=== PATIENT | female | born 1940 | race Caucasian/White ===

== ENCOUNTER 2016-07-07 16:58 | Inpatient (IN) | payer OTHER, MEDICARE ==
[~2016-07-07] VITALS: Ht 160 cm; Wt 85.7 kg
[~2016-07-07 16:58] MED LIST: BNC/40 PO; CALC1CHW PO; EXM/25 PO; HYDR25TA5 PO; MULTCHW PO; SIMV-151 PO; Tylenol PO; [UNRECOGNIZED DRUG - OTHER]
[2016-07-07] MEDS ORDERED: SODIUM CHLORIDE 0.9% 1000ML 1,000 ML IV SCH (17:18)
--- NOTE | 2016-07-07 17:28 | EMERGENCY ROOM VISIT NOTE ---
History Report prepared by Mckinley: Lacey Salguero Under the Supervision of: Dr. Tonio Wilcox D.O. 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 The patient states that last night she noticed that she was experiencing slurred speech. She states that then today she experienced a loss of balance and fell down in the shower. She states she saw her PCP today and he suggested that the patient receive a Ct scan to rule out a possible stroke. She states she has also been experiencing an intermittent headache in her left forehead. The patient denies any SOB, heart palpitations or any history of blood clots, strokes, atrial fibrillation or heart murmur. The patient states that she takes medication daily for cholesterol, hypertension, and cancer medication. 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 A total of 10 systems reviewed and were otherwise negative. Past Medical & Surgical Medical Problems: (1) Carcinoma of breast (2) Slurred speech Family History No pertient family history secondary to age Social History Smoking Status: Never Smoker Alcohol Use: none Drug Use: none Marital Status: Occupation Status: retired Current/Historical Medications Scheduled Calcium Carbonate-Vitamin D (Caltrate 600+D), 1 TAB PO HS Exemestane (Aromasin), 25 MG PO DAILY Hydrochlorothiazide (Hydrochlorothiazide), 25 MG PO QAM Multiple Vitamins W/ Minerals (Centrum Silver), 1 TABLET PO DAILY Olmesartan Medoxomil (Benicar), 40 MG PO QAM Sertraline (Zoloft), 25 MG PO DAILY Simvastatin (Simvastatin), 20 MG PO HS Allergies Coded Allergies: Latex (Verified Allergy, Intermediate, RASH, 07/07/16) No Known Drug Allergy (Unverified Allergy, Mild, none, 07/07/16) Physical Exam Vital Signs Date Time Temp Pulse Resp B/P Pulse Ox O2 Delivery O2 Flow Rate FiO2 07/07/16 19:23 71 18 186/99 96 Room Air 07/07/16 17:26 76 07/07/16 17:18 93 Room Air 07/07/16 17:02 36.8 84 18 156/90 95 Room Air Physical Exam GENERAL: Patient is awake, alert, and in no acute distress. Patient is resting comfortably and showing no signs of anxiety EYES: The conjunctivae are clear. The pupils are round and reactive. EARS, NOSE, MOUTH AND THROAT: The nose is without any evidence of any deformity. Mucous membranes are moist tongue is midline NECK: The neck is nontender and supple. No bruit noted to auscultation. RESPIRATORY: Normal respiratory effort is noted there is no evidence of wheezing rhonchi or rales CARDIOVASCULAR: Regular rate and rhythm noted there no murmurs rubs or gallops normal S1 normal S2 GASTROINTESTINAL: The abdomen is soft. Bowel sounds are present in all quadrants. Abdomen is nontender MUSCULOSKELETAL/EXTREMITIES: There is no evidence of gross deformity full range of motion is noted in the hips and shoulders SKIN: There is no obvious evidence of any rash. There are no petechiae, pallor or cyanosis noted. NEUROLOGIC: Patient is awake alert and oriented x3, speech pressured but understandable, strength symmetric and was able to hold leg above bed for greater than 5 seconds. Special Inspector strength was symmetric. There was a facial droop involving the lower left corner of mouth but forehead was spared. Medical Decision & Procedures ER Provider Diagnostic Interpretation: X-ray results as stated below per interpretation by me and the radiologist. CHEST ONE VIEW PORTABLE CLINICAL HISTORY: Stroke COMPARISON STUDY: 01/29/2013 FINDINGS: There are postsurgical changes of a midline sternotomy. There are surgical clips projected over the right breast axillary region. There is no lobar consolidation. There is stable left basilar atelectasis/scarring. There is mild interstitial thickening finding which may be secondary to a suboptimal inspiration although mild pulmonary vascular congestion could appear similar[ IMPRESSION: 1. AP portable study. Mild interstitial thickening without evidence of focal pulmonary consolidation. Electronically signed by: Matteo Richards M.D. 07/07/2016 5:59 PM Dictated Date/Time: 07/07/2016 5:[address] results as stated below per my review and radiologist interpretation. CT HEAD WITHOUT CONTRAST (CT) CLINICAL HISTORY: Stroke COMPARISON STUDY: No previous studies for comparison. TECHNIQUE: Axial CT of the brain is performed from the vertex to the skull base. IV contrast was not administered for this examination. CT DOSE: 537.48 mGy.cm FINDINGS: No intra or extra-axial mass lesions are visualized. There is no CT evidence of acute cortical infarction. There is no evidence of midline shift. There is no acute hemorrhage. No calvarial fractures are visualized. There are patchy white matter hypodensities likely on a small vessel basis. There is no evidence of pathologic ventricular dilatation. There is no evidence of acute sinusitis IMPRESSION: No acute intracranial findings Electronically signed by: Matteo Richards M.D. 07/07/2016 5:50 PM Dictated Date/Time: 07/07/2016 5:50 PM Laboratory Results 07/07/16 18:02 Red Blood Count 4.49, Mean Corpuscular Volume 92.9, Mean Corpuscular Hemoglobin 31.8, Mean Corpuscular Hemoglobin Concent 34.3, Mean Platelet Volume 10.2, Neutrophils (%) (Auto) 68.5, Lymphocytes (%) (Auto) 20.5, Monocytes (%) (Auto) 8.9, Eosinophils (%) (Auto) 1.6, Basophils (%) (Auto) 0.3, Neutrophils # (Auto) 4.24, Lymphocytes # (Auto) 1.27, Monocytes # (Auto) 0.55, Eosinophils # (Auto) 0.10, Basophils # (Auto) 0.02 07/07/16 18:02 Test 07/07/16 18:02 White Blood Count 6.19 K/uL (4.8-10.8) Red Blood Count 4.49 M/uL (4.2-5.4) Hemoglobin 14.3 g/dL (12.0-16.0) Hematocrit 41.7 % (37-47) Mean Corpuscular Volume 92.9 fL (80-100) Mean Corpuscular Hemoglobin 31.8 pg (25-34) Mean Corpuscular Hemoglobin Concent 34.3 g/dl (32-36) Platelet Count 185 K/uL (130-400) Mean Platelet Volume 10.2 fL (7.4-10.4) Neutrophils (%) (Auto) 68.5 % Lymphocytes (%) (Auto) 20.5 % Monocytes (%) (Auto) 8.9 % Eosinophils (%) (Auto) 1.6 % Basophils (%) (Auto) 0.3 % Neutrophils # (Auto) 4.24 K/uL (1.4-6.5) Lymphocytes # (Auto) 1.27 K/uL (1.2-3.4) Monocytes # (Auto) 0.55 K/uL (0.11-0.59) Eosinophils # (Auto) 0.10 K/uL (0-0.5) Basophils # (Auto) 0.02 K/uL (0-0.2) RDW Standard Deviation 45.4 fL (36.4-46.3) RDW Coefficient of Variation 13.4 % (11.5-14.5) Immature Granulocyte % (Auto) 0.2 % Immature Granulocyte # (Auto) 0.01 K/uL (0.00-0.02) Prothrombin Time 10.7 SECONDS (9.0-12.0) Prothromb Time International Ratio 1.0 (0.9-1.1) Activated Partial Thromboplast Time 26.7 SECONDS (21.0-31.0) Partial Thromboplastin Ratio 1.0 Anion Gap 8.0 mmol/L (3-11) Est Creatinine Clear Calc Drug Dose 53.5 ml/min Estimated GFR () 67.2 Estimated GFR (Non- 57.9 BUN/Creatinine Ratio 17.1 (10-20) Calcium Level 9.6 mg/dl (8.5-10.1) Laboratory results per my review. Medications Administered Medications (Trade) Dose Ordered Sig/Sarika Route Start Time Stop Time Status Last Admin Dose Admin Sodium Chloride (Nss 1000ml) 1,000 ml @ 50 mls/hr Q20H IV 07/07/16 17:18 07/07/16 21:17 DC 07/07/16 18:05 50 MLS/HR Acetaminophen (Tylenol Tab) 650 mg Q4H PRN PO 07/07/16 20:00 08/06/16 19:59 07/07/16 21:54 650 MG ECG Indication: altered mental status Rate (beats per minute): 74 Rhythm: normal sinus Findings: no ectopy, other (No acute ST segment abnormalities.) Comparison ECG Date: no prior available ED Course 1711: The patient was evaluated in room A3. A complete history and physical examination were performed. 1718: Ordered NSS 1,000 ml @ 50 mls/hr IV 1856; I reevaluated the patient and she was resting comfortably without symptoms. 1914: I discussed the case with Dr. Alex CLARK Hospitalist. He agreed to evaluate the patient for further management and care. Medical Decision Differential diagnosis: Etiologies such as metabolic, infection, hypo/hyperglycemia, electrolyte abnormalities, cardiac sources, intracerebral event, toxicologic, neurologic, as well as others were entertained. Nursing notes reviewed. Additional history is obtained from the patient's friend. The patient is a 75-year-old female who presented to emergency department for strokelike symptoms. The patient started noticing difficulty with her speech over the last 24 hours. The patient was also noted on physical exam to have a slight facial droop on the left. The patient states her symptoms have been waxing and waning. The patient's primary care physician instructed her to come to the emergency department for an evaluation. I discussed the patient's laboratory and radiographic studies with her. She was reevaluated multiple times. On final reevaluation her symptoms appear to be resolved. 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 I discussed his case with the on-call [facility] hospitalist group. They've agreed to evaluate the patient in the emergency apartment for further management and disposition. Consults Time Called: 1899 Consulting Physician: Dr. Alex CLARK [facility] Returned Call: 1914 I discussed the case with Dr. Alex CLARK [facility]. He agreed to evaluate the patient for further management and care. Impression Primary Impression: TIA (transient ischemic attack) Scribe Attestation The scribe's documentation has been prepared under my direction and personally reviewed by me in its entirety. I confirm that the note above accurately reflects all work, treatment, procedures, and medical decision making performed by me. Departure Information Dispostion Being Evaluated By Hospitalist Referrals Manolo Toussaint D.O. (PCP)
[2016-07-07] MEDS ORDERED: SERT25TA PO (17:36)
--- NOTE | 2016-07-07 17:52 | DIAGNOSTIC IMAGING REPORT ---
CT HEAD WITHOUT CONTRAST (CT) CLINICAL HISTORY: Stroke COMPARISON STUDY: No previous studies for comparison. TECHNIQUE: Axial CT of the brain is performed from the vertex to the skull base. IV contrast was not administered for this examination. CT DOSE: 537.48 mGy.cm FINDINGS: No intra or extra-axial mass lesions are visualized. There is no CT evidence of acute cortical infarction. There is no evidence of midline shift. There is no acute hemorrhage. No calvarial fractures are visualized. There are patchy white matter hypodensities likely on a small vessel basis. There is no evidence of pathologic ventricular dilatation. There is no evidence of acute sinusitis IMPRESSION: No acute intracranial findings Electronically signed by: Matteo Richards M.D. 07/07/2016 5:50 PM Dictated Date/Time: 07/07/2016 5:50 PM
--- NOTE | 2016-07-07 18:00 | DIAGNOSTIC IMAGING REPORT ---
CHEST ONE VIEW PORTABLE CLINICAL HISTORY: Stroke COMPARISON STUDY: 01/29/2013 FINDINGS: There are postsurgical changes of a midline sternotomy. There are surgical clips projected over the right breast axillary region. There is no lobar consolidation. There is stable left basilar atelectasis/scarring. There is mild interstitial thickening finding which may be secondary to a suboptimal inspiration although mild pulmonary vascular congestion could appear similar[ IMPRESSION: 1. AP portable study. Mild interstitial thickening without evidence of focal pulmonary consolidation. Electronically signed by: Matteo Richards M.D. 07/07/2016 5:59 PM Dictated Date/Time: 07/07/2016 5:58 PM
[2016-07-07 18:08] LABS: BASO % 0.3 %; BASO ABS # 0.02 K/uL (0-0.2); COMPLETE YES; EOS % 1.6 %; HEMATOCRIT 41.7 % (37-47); IG% 0.2 %; LYMPH % 20.5 %; LYMPH ABS # 1.27 K/uL (1.2-3.4); MEAN CELL VOLUME 92.9 fL (80-100); MEAN CORPUSCULAR HEMOGLOBIN 31.8 pg (25-34); MEAN CORPUSCULAR HGB CONC 34.3 g/dl (32-36); MEAN PLATELET VOLUME 10.2 fL (7.4-10.4); MONO % 8.9 %; NEUT % 68.5 %; PLATELET COUNT 185 K/uL (130-400); RED BLOOD COUNT 4.49 M/uL (4.2-5.4); WHITE BLOOD COUNT 6.19 K/uL (4.8-10.8)
[2016-07-07 18:26] LABS: PROTHROMBIN TIME (PATIENT) 10.7 SECONDS (9.0-12.0)
[2016-07-07 18:30] LABS: BLOOD UREA NITROGEN 17 mg/dl (7-18); BUN/CREATININE RATIO 17.1 (10-20); CALCIUM 9.6 mg/dl (8.5-10.1); CARBON DIOXIDE 28 mmol/L (21-32); CHLORIDE 104 mmol/L (98-107); CREATININE 0.97 mg/dl (0.60-1.20); GLUCOSE 101 mg/dl (70-99); POTASSIUM 3.8 mmol/L (3.5-5.1); SODIUM 140 mmol/L (136-145)
[2016-07-07 18:35] LABS: CKMB/CK RATIO 0.8 (0-3.0)
[2016-07-07] MEDS ORDERED: METOPROLOL TARTRATE 1 MG/ML VIAL IV PRN (20:00)
[2016-07-07] MEDS ORDERED: ONDANSETRON INJ 2 MG/ML 2 ML VIAL IV PRN (20:00)
[2016-07-07] MEDS ORDERED: PHARMACIST DISCHARGE MED REC CONSULT PRN (20:00)
[2016-07-07] MEDS ORDERED: OPTIRAY 320 IV PRN (20:00)
[2016-07-07] MEDS ORDERED: NITROGLYCERIN 0.4 MG SL PER TAB CHARGE SL PRN (20:00)
[2016-07-07] MEDS ORDERED: ALUMINUM/MAGNESIUM/SIMETH (MAALOX MAX) 30 ML UDC PO PRN (20:00)
[2016-07-07] MEDS ORDERED: ASPIRIN 81 MG CHEW PO SCH (20:01)
--- NOTE | 2016-07-07 20:37 | DIAGNOSTIC IMAGING REPORT ---
CT ANGIOGRAPHY HEAD COMBO CT DOSE: CLINICAL HISTORY: Stroke TECHNIQUE: Unenhanced images were obtained the brain. CT angiography was then performed in a dynamic helical fashion during intravenous administration of 115 cc of Optiray 320. MIP imaging was performed COMPARISON STUDY: Noncontrast head CT dated 07/07/2016 FINDINGS: On the noncontrast study, no intra or extra-axial mass lesions are visualized. There is no CT evidence of acute cortical infarction. White matter hypodensities are likely small vessel basis. There is no hydrocephalus. CT angiographic images reveal minor atherosclerotic changes within the carotid siphon. There are no major intracranial branch occlusions. There are no lesion suspicious for aneurysm. There are no findings to indicate dural venous sinus thrombosis. There is no vertebral or basilar artery stenosis. IMPRESSION: 1. Mild atherosclerotic changes. No evidence of aneurysm. No evidence of intracranial branch occlusion. Electronically signed by: Matteo Richards M.D. 07/07/2016 8:36 PM Dictated Date/Time: 07/07/2016 8:31 PM
--- NOTE | 2016-07-07 20:42 | DIAGNOSTIC IMAGING REPORT ---
CT NECK ANGIO WITH CONTRAST CLINICAL HISTORY: Stroke COMPARISON STUDY: No previous studies for comparison. TECHNIQUE: CT angiography was performed from the aortic arch to the skull base. MIP imaging was performed. The patient was scanned in a dynamic helical fashion during intravenous administration of 115 cc of Optiray 320. CT DOSE: 1132.93 mGy.cm Technique: CT angiogram of the carotid and vertebral arteries was obtained using intravenous contrast and 3-D reconstruction. NASCET criteria was utilized. Findings: The right carotid revealed no evidence of aneurysm and no evidence of dissection. There are atherosclerotic changes at the level the carotid bulb. There is a small ulcerated plaque involving the posterior wall the proximal right internal carotid artery. There is no evidence of hemodynamic significant stenosis. The left carotid revealed no evidence of hemodynamic significant stenosis. There is no evidence of aneurysm. There is no evidence of dissection. There is no evidence of hemodynamically significant vertebral stenosis. There is no evidence of vertebral dissection. IMPRESSION: 1. Atheromatous changes at the level of the right carotid bulb with a small ulcerated plaque involving the posterior wall the proximal right internal carotid artery. 2. No evidence of hemodynamically significant right or left internal carotid artery stenosis. 3. No evidence of vertebral or basilar artery stenosis. 4. No evidence of dissection Electronically signed by: Matteo Richards M.D. 07/07/2016 8:41 PM Dictated Date/Time: 07/07/2016 8:36 PM
[2016-07-07] MEDS ORDERED: SIMVASTATIN 20 MG TAB PO SCH (21:00)
[2016-07-07] MEDS ORDERED: ATORVASTATIN 40 MG TAB PO SCH (21:00)
[2016-07-07 21:15] VITALS: BP 179/93; PULSE 72; TEMP 36.8; O2SAT 95; Ht 160 cm; Wt 85.7 kg
[2016-07-07] MEDS: HEPARIN SOD 5000 UNIT/0.5 ML CARP SQ SCH (21:48)
[2016-07-07] MEDS: ACETAMINOPHEN 325 MG TAB PO PRN (21:54)
[2016-07-07 22:09] LABS: CKMB/CK RATIO 1.1 (0-3.0)
[2016-07-07 23:04] VITALS: BP 137/78; PULSE 74; TEMP 36.8; O2SAT 96
--- NOTE | 2016-07-07 23:15 | History and Physical ---
History & Physical Date & Time of Service: Jul 07, 2016 at 23:04 Chief Complaint: Slurred Speech, Tia Primary Care Physician: Manolo Toussaint D.O. History of Present Illness Source: patient, family Mrs Zaria Mann is a 75 yo female with previous breast cancer, hyperlipidemia, hypertension, & mild depression, patient of Dr Toussaint, who initially presented to his office with a 3 day history of slurred speech and difficulties with balance. Apparently last night she lost her balance and fell in the shower. She saw Dr Toussaint today who recommended she get a CT scan to evaluate for stroke. She reports her blood pressure in the office today was around 130/80. She reports she has also had a mild headache to the left frontal area as well. Upon seeing her, her slurred speech had resolved, but she has a residual right sided facial droop. She presented with her cousin today and reports generally she functions very well on her own. She reports she is on medication for high cholesterol and high blood pressure. She denies ever being on aspirin or plavix. Past Medical/Surgical History PMHx: - Breast Ca - Hyperlipidemia - Hypertension - Depression PSHx: - Mastectomy - Cardiac surgery for an ASD, done at [facility] (she does not remember what type of surgery it was), completed at age 55 Family History No pertient family history secondary to age Social History Smoking Status: Never Smoker Drug Use: none Marital Status: Occupational Status: retired Immunizations History of Influenza Vaccine: No Influenza Vaccine Date: Mar 21, 2012 History of Tetanus Vaccine?: Unknown History of Pneumococcal: Unknown History of Hepatitis B Vaccine: No Multi-Drug Resistant Organisms History of MDRO: No Allergies Coded Allergies: Latex (Verified Allergy, Intermediate, RASH, 07/07/16) No Known Drug Allergy (Unverified Allergy, Mild, none, 07/07/16) Home Medications Scheduled Calcium Carbonate-Vitamin D (Caltrate 600+D), 1 TAB PO HS Exemestane (Aromasin), 25 MG PO DAILY Hydrochlorothiazide (Hydrochlorothiazide), 25 MG PO QAM Multiple Vitamins W/ Minerals (Centrum Silver), 1 TABLET PO DAILY Olmesartan Medoxomil (Benicar), 40 MG PO QAM Sertraline (Zoloft), 25 MG PO DAILY Simvastatin (Simvastatin), 20 MG PO HS Review of Systems See HPI for pertinent positives & negatives. A total of 10 systems reviewed and were otherwise negative. Physical Exam Vital Signs Date Time Temp Pulse Resp B/P Pulse Ox O2 Delivery O2 Flow Rate FiO2 07/07/16 21:15 36.8 72 18 179/93 95 Room Air 07/07/16 19:23 71 18 186/99 96 Room Air 07/07/16 17:26 76 07/07/16 17:18 93 Room Air 07/07/16 17:02 36.8 84 18 156/90 95 Room Air General Appearance: WD/WN, no apparent distress Head: normocephalic, atraumatic Eyes: normal inspection, PERRL ENT: hearing grossly normal Neck: supple, no JVD Respiratory/Chest: chest non-tender, lungs clear, normal breath sounds, no respiratory distress Cardiovascular: regular rate, rhythm, no murmur, normal peripheral pulses Abdomen/GI: normal bowel sounds, non tender, soft Extremities/Musculoskelatal: normal inspection, + pedal edema Neurologic/Psych: no motor/sensory deficits, alert, normal mood/affect, normal reflexes, oriented x 3, + pertinent finding (mild facial droop to Right side) Skin: no rash Diagnostics Laboratory Results Results Past 24 Hours Test 07/07/16 18:02 07/07/16 21:23 Range/Units White Blood Count 6.19 4.8-10.8 K/uL Red Blood Count 4.49 4.2-5.4 M/uL Hemoglobin 14.3 12.0-16.0 g/dL Hematocrit 41.7 37-47 % Mean Corpuscular Volume 92.9 80-100 fL Mean Corpuscular Hemoglobin 31.8 25-34 pg Mean Corpuscular Hemoglobin Concent 34.3 32-36 g/dl Platelet Count 185 130-400 K/uL Mean Platelet Volume 10.2 7.4-10.4 fL Neutrophils (%) (Auto) 68.5 % Lymphocytes (%) (Auto) 20.5 % Monocytes (%) (Auto) 8.9 % Eosinophils (%) (Auto) 1.6 % Basophils (%) (Auto) 0.3 % Neutrophils # (Auto) 4.24 1.4-6.5 K/uL Lymphocytes # (Auto) 1.27 1.2-3.4 K/uL Monocytes # (Auto) 0.55 0.11-0.59 K/uL Eosinophils # (Auto) 0.10 0-0.5 K/uL Basophils # (Auto) 0.02 0-0.2 K/uL RDW Standard Deviation 45.4 36.4-46.3 fL RDW Coefficient of Variation 13.4 11.5-14.5 % Immature Granulocyte % (Auto) 0.2 % Immature Granulocyte # (Auto) 0.01 0.00-0.02 K/uL Prothrombin Time 10.7 9.0-12.0 SECONDS Prothromb Time International Ratio 1.0 0.9-1.1 Activated Partial Thromboplast Time 26.7 21.0-31.0 SECONDS Partial Thromboplastin Ratio 1.0 Sodium Level 140 136-145 mmol/L Potassium Level 3.8 3.5-5.1 mmol/L Chloride Level 104 98-107 mmol/L Carbon Dioxide Level 28 21-32 mmol/L Anion Gap 8.0 3-11 mmol/L Blood Urea Nitrogen 17 7-18 mg/dl Creatinine 0.97 0.60-1.20 mg/dl Est Creatinine Clear Calc Drug Dose 53.5 ml/min Estimated GFR () 67.2 Estimated GFR (Non- 57.9 BUN/Creatinine Ratio 17.1 10-20 Random Glucose 101 70-99 mg/dl Calcium Level 9.6 8.5-10.1 mg/dl Total Creatine Kinase 141 132 26-192 U/L Creatine Kinase MB 1.1 1.5 0.5-3.6 ng/ml Creatine Kinase MB Ratio 0.8 1.1 0-3.0 Troponin I < 0.015 < 0.015 0-0.045 ng/ml Diagnostic Radiology CHEST ONE VIEW PORTABLE CLINICAL HISTORY: Stroke COMPARISON STUDY: 01/29/2013 FINDINGS: There are postsurgical changes of a midline sternotomy. There are surgical clips projected over the right breast axillary region. There is no lobar consolidation. There is stable left basilar atelectasis/scarring. There is mild interstitial thickening finding which may be secondary to a suboptimal inspiration although mild pulmonary vascular congestion could appear similar[ IMPRESSION: 1. AP portable study. Mild interstitial thickening without evidence of focal pulmonary consolidation. Electronically signed by: Matteo Richards M.D. 07/07/2016 5:59 PM Dictated Date/Time: 07/07/2016 5:[address] results as stated below per my review and radiologist interpretation. CT HEAD WITHOUT CONTRAST (CT) CLINICAL HISTORY: Stroke COMPARISON STUDY: No previous studies for comparison. TECHNIQUE: Axial CT of the brain is performed from the vertex to the skull base. IV contrast was not administered for this examination. CT DOSE: 537.48 mGy.cm FINDINGS: No intra or extra-axial mass lesions are visualized. There is no CT evidence of acute cortical infarction. There is no evidence of midline shift. There is no acute hemorrhage. No calvarial fractures are visualized. There are patchy white matter hypodensities likely on a small vessel basis. There is no evidence of pathologic ventricular dilatation. There is no evidence of acute sinusitis IMPRESSION: No acute intracranial findings Normal EKG Impression Assessment and Plan 75 yo F with risk factors including age, hypertension, and hyperlipidemia who presents with slurred speech and facial weakness, now resolved. Plan: TIA evaluation - CTA of head and neck. - Cardiac monitoring - Will hold off on MRI for now as patient reports she is not allowed to get MRI from the head below due to something placed during her cardiac surgery? - Start aspirin today - Neuro consult Hypertension - Hold hydrochlorothiazide for now - Metoprolol 5mg IV PRN, aiming for SBP 150-170 Hyperlipidemia - Change simvastatin 20mg to atorvastatin 40mg Breast Ca - Continue home Aromasin FULL CODE Level of Care Telemetry Advanced Directives Existing Advance Directive: Yes Existing Living Will: Yes Existing Power of Customs Compliance Analyst: Yes Resuscitation Status FULL RESUSCITATION VTE Prophylaxis VTE Risk Assessment Done? Y/N: Yes Risk Level: Moderate Given or contraindicated: Unfractionated heparin SQ Resident Tracking Resident Involvement: Resident Care Provided Care Provided: Adult [facility] Medicine Assessment and Plan ATTENDING ADDENDUM: ATTENDING ADDENDUM: I have seen and examined this patient, have directed their medical care, have supervised the medical records supervisor, and agree with the H&P as noted above, with the additions below. History of Present Illness: The patient is a 75-year-old female with past medical history of breast cancer, hyperlipidemia, hypertension, depression who presented to the office of her PCP Dr. Toussaint with 3 days of slurred speech and imbalance. Last night she fell in the shower, but denies hitting her head, but does report having a mild left frontal headache. She was advised by her PCP to get a CT of the head. Upon assessment in the emergency department, her slurred speech had resolved but she continued have a mild right facial droop. She is accompanied by her cousin to the emergency department today. Review of Systems: The patient denies chest pain, palpitations, shortness of breath, cough, lower extremity swelling, vision change, hearing change, sore throat, fevers, chills, sweats, weight change, fatigue, nausea, vomiting, abdominal pain, pelvic pain, blood in urine or stool, dysuria, urinary frequency or urgency, memory loss, rash, abnormal bruising or bleeding, arthralgias or myalgias, back or neck pain , night sweats, or allergy symptoms. The review of systems is otherwise negative other than for that already noted above, and at least 10 systems have been reviewed. Physical Examination: The patient is awake, well-developed and adequately nourished, alert and oriented 3, has a mild right facial droop lying in bed and in no acute distress. HEENT--PERRL, EOMI, mucous membranes moist, and oropharynx normal. Neck--supple, no JVD or bruits, thyroid normal, trachea midline, no adenopathy. Heart--normal S1 and S2, no extra beats, no murmurs, rubs or gallops. Lungs--clear bilaterally with good air movement, no respiratory distress, no accessory muscle use. Abdomen--normal bowel sounds and soft, nontender and nondistended, no hernias or masses, no organomegaly. Extremities--no cyanosis, clubbing or edema. There are good distal pulses b/l. Dermatologic--normal skin turgor, normal color, warm and dry, no abnormal lymph nodes, no rash. Neurologic--cranial nerves II through XII grossly intact, motor and sensory examination normal. Rheumatologic--normal range of motion, nontender, muscles and joints. Psychiatric--normal affect. Imaging Studies: CT scan of the head Without Contrast: Shows chronic small vessel disease, with no acute findings. EKG shows normal sinus rhythm at 74, with no acute ST-T changes. Assessment and Plan: TIA versus CVA--the patient will be admitted to the telemetry unit, for serial cardiac enzymes, cardiac rhythm monitoring, and a 2-D echocardiogram with Dopplers. She reports having had some type of invasive heart procedure that does not allow her to have an MRI performed. We'll therefore is CTA of the head and neck, transthoracic echo, and patient may also require a MICH to assess for vegetations. We'll start aspirin chewable 81 mg by mouth daily. Consult neurology. Next Hypertension--mildly permissive hypertension since her symptoms have been somewhat variable. Tonight he'll also slightly blood pressure 150-170, in the morning with echodense normal range. We'll metoprolol 5 mg IV every 4 hours when necessary systolic blood pressure greater than 150. Hyperlipidemia--simvastatin 20 mg been changed to atorvastatin 40 mg. Breast cancer--presently is on Aromasin, which would increase her risk for hypercoagulability. We'll continue for now. Depression--continue sertraline 25 mg by mouth daily.
[2016-07-07 23:59] VITALS: O2SAT 96
[2016-07-08] VITALS (7 sets, daily range): BP systolic 148–176; BP diastolic 62–95; PULSE 64–74; TEMP 36.5–37.1; O2SAT 95–96
[2016-07-08 02:32] LABS: CKMB/CK RATIO 1.4 (0-3.0)
[2016-07-08] MEDS: HEPARIN SOD 5000 UNIT/0.5 ML CARP SQ SCH ×3 (05:55→21:26)
[2016-07-08 06:30] LABS: BASO % 0.6 %; BASO ABS # 0.03 K/uL (0-0.2); COMPLETE YES; EOS % 3.1 %; HEMATOCRIT 39.9 % (37-47); IG% 0.2 %; LYMPH % 24.6 %; LYMPH ABS # 1.27 K/uL (1.2-3.4); MEAN CELL VOLUME 93.9 fL (80-100); MEAN CORPUSCULAR HEMOGLOBIN 31.5 pg (25-34); MEAN CORPUSCULAR HGB CONC 33.6 g/dl (32-36); MEAN PLATELET VOLUME 10.4 fL (7.4-10.4); NEUT % 60.5 %; PLATELET COUNT 171 K/uL (130-400); RED BLOOD COUNT 4.25 M/uL (4.2-5.4); WHITE BLOOD COUNT 5.17 K/uL (4.8-10.8)
[2016-07-08 07:09] LABS: ESTIMATED AVERAGE GLUCOSE 148 mg/dl; HA1C FLAG Normal (Normal)
[2016-07-08 07:10] LABS: BUN/CREATININE RATIO 19.4 (10-20); CALCIUM 8.9 mg/dl (8.5-10.1); CREATININE 0.83 mg/dl (0.60-1.20); POTASSIUM 3.4 mmol/L (3.5-5.1)
[2016-07-08 07:13] LABS: CHOLESTEROL/HDL RATIO 2.9
[2016-07-08] MEDS ORDERED: ASPIRIN 81 MG CHEW PO SCH (09:00)
[2016-07-08] MEDS ORDERED: NURSING VERBAL MED ORDER ONE ×2 (09:30→20:30)
[2016-07-08] MEDS ORDERED: CLOPIDOGREL BISULFATE 300 MG TAB PO ONE (09:45)
--- NOTE | 2016-07-08 09:46 | ECHOCARDIOGRAM REPORT ---
*NOTICE TO RECEIVING CONSTITUTION PARTY AGENCY This information is strictly Confidential and protected under [place] law. [place] law prohibits you from making any further disclosure of this information unless further disclosure is expressly permitted by the written consent of the person to whom it pertains or is authorized by law. A general authorization for the release of medical or other information is not sufficient for this purpose. Hospital accepts no responsibility if the information is made available to any other person, INCLUDING THE PATIENT. Interpretation Summary * Name: HIWOT CHAPPELL Study Date: 07/08/2016 07:28 AM BP: 169/90 mmHg * Patient Location: [facility] HR: 64 * : 1940 (M/d/yyyy) Gender: Female Height: 63 in * Age: 75 yrs Ethnicity: CA Weight: 188 lb * Ordering Physician: Felecia Tang * Referring Physician: Manolo Toussaint D.O. * Performed By: Nicole Patricia RCS * * Reason For Study: Cerebral Ischemia/Embolus * BSA: 1.9 m2 * -- Conclusions -- * The left ventricle is normal in size. * There is normal left ventricular wall thickness. * LVEF 65% * Left ventricular systolic function is normal. * The left ventricular wall motion is normal. * The right ventricle is normal size. * Mildly reduced RV function with TAPSE 1.2 cm * The intraatrial septum is hypermobile. * With a difficult bubble study to interpret there appears to be a right to left shunt with valsalva. Procedure Details * A complete two-dimensional transthoracic echocardiogram was performed (2D, M-mode, Doppler and color flow Doppler). * A saline contrast injection was performed to assess for cardiac shunting. * The injection was performed through an intravenous line in the left arm. * The attending nurse who injected the saline contrast was Renata Titus RN. * A total of 30 cc of agitated saline was given. Left Ventricle * The left ventricle is normal in size. * There is normal left ventricular wall thickness. * LVEF 65% * Left ventricular systolic function is normal. * The left ventricular wall motion is normal. Right Ventricle * The right ventricle is normal size. * Mildly reduced RV function with TAPSE 1.2 cm Atria * The left atrial size is normal. * Right atrial size is normal. * The intraatrial septum is hypermobile. With a difficult bubble study to interpret there appears to be a right to left shunt with valsalva. Mitral Valve * The mitral valve leaflets appear normal. There is no evidence of stenosis, fluttering, or prolapse. * There is trace mitral regurgitation. Tricuspid Valve * The tricuspid valve is not well visualized, but is grossly normal. * There is trace tricuspid regurgitation. Aortic Valve * The aortic valve is trileaflet. * No aortic regurgitation is present. Pulmonic Valve * The pulmonic valve is not well seen, but is grossly normal. Great Vessels * The aortic root is normal size. Pericardium/Pleural * There is no pericardial effusion. Great Vessels * Normal inferior vena cava size and collapsability with sniff indicates a normal right atrial pressure of 3 mmHg Left Ventricular Diastolic Function * Grade I diastolic dysfunction, (abnormal relaxation pattern). MMode 2D Measurements and Calculations IVSd 0.97 cm IVSs 1.4 cm LVIDd 4.6 cm LVIDs 2.9 cm LVPWd 1.0 cm LVPWs 1.4 cm IVS/LVPW 0.97 FS 36.5 % EDV(Teich) 96.2 ml ESV(Teich) 32.3 ml EF(Teich) 66.4 % EDV(cubed) 95.8 ml ESV(cubed) 24.5 ml EF(cubed) 74.4 % % IVS thick 41.1 % % LVPW thick 35.2 % LV mass(C)d 155.7 grams LV mass(C)dI 82.7 grams/m\S\2 LV mass(C)s 129.8 grams LV mass(C)sI 68.9 grams/m\S\2 CO(Teich) 4.0 l/min CI(Teich) 2.1 l/min/m\S\2 SV(Teich) 63.8 ml SI(Teich) 33.9 ml/m\S\2 CO(cubed) 4.5 l/min CI(cubed) 2.4 l/min/m\S\2 SV(cubed) 71.3 ml SI(cubed) 37.9 ml/m\S\2 Ao root diam 3.6 cm Ao root area 10.1 cm\S\2 ACS 1.7 cm LA dimension 3.7 cm LA/Ao 1.0 LVAd ap4 27.2 cm\S\2 LVLd ap4 8.0 cm EDV(MOD-sp4) 77.0 ml LVAs ap4 14.9 cm\S\2 LVLs ap4 7.0 cm ESV(MOD-sp4) 28.0 ml EF(MOD-sp4) 63.6 % LVAd ap2 25.4 cm\S\2 LVLd ap2 7.8 cm EDV(MOD-sp2) 72.0 ml LVAs ap2 12.5 cm\S\2 LVLs ap2 6.0 cm ESV(MOD-sp2) 23.0 ml EF(MOD-sp2) 68.1 % CO(MOD-sp4) 3.1 l/min CI(MOD-sp4) 1.6 l/min/m\S\2 SV(MOD-sp4) 49.0 ml SI(MOD-sp4) 26.0 ml/m\S\2 CO(MOD-sp2) 3.1 l/min CI(MOD-sp2) 1.6 l/min/m\S\2 SV(MOD-sp2) 49.0 ml SI(MOD-sp2) 26.0 ml/m\S\2 Doppler Measurements and Calculations MV E max eula 59.8 cm/sec MV A max eula 85.2 cm/sec MV E/A 0.70 MV P1/2t max eula 60.8 cm/sec MV P1/2t 92.4 msec MVA(P1/2t) 2.4 cm\S\2 MV dec slope 192.7 cm/sec\S\2 MV dec time 0.30 sec Ao V2 max 96.5 cm/sec Ao max PG 3.7 mmHg Ao max PG (full) 0.32 mmHg LV V1 max PG 3.4 mmHg LV V1 max 92.2 cm/sec PA V2 max 95.0 cm/sec PA max PG 3.7 mmHg
--- NOTE | 2016-07-08 09:48 | Neurology Consultation ---
Neurology Consultation Date of Consultation: Jul 08, 2016. Attending Physician: Giuseppe Muller M.D. Primary Care Physician: Manolo Toussaint D.O. Reason for Consultation: Patient is a 75-year-old, who was asked to see the request of June and Renzo, for neurologic consultation regarding stroke. History of Present Illness Source: patient, family, caregiver, hospital records The patient tells me that she has not had any history of stroke. She has had hypertension for about 15 years and in 2010 was diagnosed with right breast cancer post partial mastectomy, radiation, and hormonal therapy. As far as is known, she has not had any recurrence but is followed closely by oncology. She has a history of dyslipidemia on simvastatin and some very mild situational depression recently put on low-dose sertraline. This helps. The patient tells me that at age 55, she had a heart mesh procedure for atrial septal defect at the [facility]. She is currently followed by Dr. Jimenez. She believes that she has been told that she cannot have an MRI. In the evening of July 06 around 8 PM she had the onset of some slurred speech. She felt that her balance was off and she felt tired. She did not have any new weakness or numbness in her arms or legs and had no new pain. She went to bed and woke the next morning still with balance issues and slurred speech. At 0600 hours on July 07 she was sitting on the toilet, stood up, felt off balance and fell. She bruised her right side/rib cage considerably. She noted some left forehead headache intermittently but didn't come to the emergency room until 1702 hours on July 07. Blood pressure was 156/90, pulse 84, respiratory rate 18, temperature 36.8, and O2 saturation 95%. In the emergency room, there was a left facial droop noted at her speech was "pressured". She was admitted and the admitting clinician felt that there was a right facial droop. The patient's hvmalsed-hi-lds, who is an RN, and is present in the room, tells me that late last evening she did not have any weakness or clumsiness in the right upper extremity and did not notice much of a facial droop. She felt that there was a left-sided facial droop yesterday. This morning, the patient feels that her speech is back to baseline and she has no pain or headache. She feels tired in general but does not feel any specific weakness or numbness. CT scan of the head was unremarkable. Chest x-ray was unremarkable. CT angiography of the head and neck was unremarkable with no significant vessel stenosis. CBC and chem profile were unremarkable. Lipid profile was quite good. Past Medical/Surgical History Medical Problems: (1) TIA (transient ischemic attack) Status: Acute Hypertension Dyslipidemia Mild depression controlled on low-dose sertraline Right breast cancer post surgery, RT, on hormonal therapy Chronic low back pain History of mesh placed for an atrial septal defect 20 years ago. Post tonsillectomy Family History Mother age 72 with heart disease and pulmonary symptoms Father age 77 with complications stemming from a stroke Social History Apparently the patient does not drink alcohol and never smoked cigarettes. 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 Smoking Status: Never smoker Smokeless Tobacco Use: No Alcohol Use: none Drug Use: none Marital Status: Housing Status: lives alone Occupation Status: retired Allergies Coded Allergies: Latex (Verified Allergy, Intermediate, RASH, 07/07/16) No Known Drug Allergy (Unverified Allergy, Mild, none, 07/07/16) Current Inpatient Medications Current Inpatient Medications Medications (Trade) Dose Ordered Sig/Sarika Route Start Time Stop Time Status Last Admin Dose Admin Ioversol (Optiray 320) 100 ml UD PRN IV 07/07/16 20:00 07/11/16 19:59 Aspirin (Ecotrin Tab) 81 mg QAM PO 07/08/16 09:00 08/07/16 08:59 Miscellaneous Information (Pharmacist Discharge Med Rec Consult) 1 ea UD PRN N/A 07/07/16 20:00 08/06/16 19:59 Heparin Sodium (Porcine) (Heparin Sq 5000 Unit/0.5ml) 5,000 unit Q8 SQ 07/07/16 22:00 08/06/16 21:59 07/08/16 05:55 5,000 UNIT Acetaminophen (Tylenol Tab) 650 mg Q4H PRN PO 07/07/16 20:00 08/06/16 19:59 07/07/16 21:54 650 MG Al Hydrox/Mg Hydrox/Simethicone (Maalox Max Susp) 15 ml Q4H PRN PO 07/07/16 20:00 08/06/16 19:59 Ondansetron HCl (Zofran Inj) 4 mg Q6H PRN IV 07/07/16 20:00 08/06/16 19:59 Nitroglycerin (Nitrostat Tab) 0.4 mg UD PRN SL 07/07/16 20:00 08/06/16 19:59 Metoprolol Tartrate (Lopressor Iv) 5 mg Q4H PRN IV 07/07/16 20:00 08/06/16 19:59 Sertraline HCl (Zoloft Tab) 25 mg DAILY PO 07/08/16 09:00 08/07/16 08:59 Miscellaneous Information (Order Awaiting Action) 1 ea QS N/A 07/08/16 00:00 08/07/16 00:00 Atorvastatin Calcium (Lipitor Tab) 40 mg HS PO 07/07/16 21:00 08/06/16 20:59 07/07/16 21:45 40 MG Clopidogrel Bisulfate (plAVix TAB) 300 mg TODAY@0945 ONCE PO 07/08/16 09:45 07/08/16 09:46 Clopidogrel Bisulfate (plAVix TAB) 75 mg QAM PO 07/09/16 09:00 08/08/16 08:59 Review of Systems Constitutional: + fatigue, No weakness Eyes: No diplopia, No worsening of vision ENT: No hearing loss, No tinnitus Respiratory: No cough, No shortness of breath Cardiovascular: No chest pain, No palpitations Abdomen: No nausea, No pain Musculoskeletal: No joint pain, No muscle pain Genitourinary - Female: No dysuria, No urinary incontinence Neurologic: + balance problems, No memory loss, No numbness/tingling, No vertigo, No weakness Psychiatric: + depression symptoms, No anxiety Endocrine: + fatigue Hematologic / Lymphatic: No abnormal bleeding/bruising Integumentary: No rash Allergic / Immunologic: No hives Physical Exam Vital Signs (Past 24 Hrs): Date Time Temp Pulse Resp B/P Pulse Ox O2 Delivery O2 Flow Rate FiO2 07/08/16 07:51 36.7 65 18 154/62 96 07/08/16 04:00 96 Room Air 07/08/16 03:30 36.5 64 18 169/90 96 Room Air 07/07/16 23:59 96 Room Air 07/07/16 23:04 36.8 74 18 137/78 96 Room Air 07/07/16 21:15 36.8 72 18 179/93 95 Room Air 07/07/16 19:23 71 18 186/99 96 Room Air 07/07/16 17:26 76 07/07/16 17:18 93 Room Air 07/07/16 17:02 36.8 84 18 156/90 95 Room Air The patient is right-handed. The patient is awake and alert. Speech is normal without aphasia or dysarthria. Mentation and thought processes are intact with orientation and normal fund of knowledge. Mood and affect are normal and appropriate. Appearance and grooming are normal. The discs are sharp with positive venous pulsations. There are no exudates, hemorrhages, or blood vessel changes seen. Pupils are 4mm bilaterally and reactive to light. Extraocular eye muscles are intact without nystagmus. Visual acuity and visual read seem normal grossly to confrontation. There are no deficits to sensation of the face bilaterally. Corneal reflexes are positive bilaterally. There is a mild but distinct right facial droop present. This moves fairly well with voluntary smile. There is no facial droop on the left. . Hearing seems intact grossly to voice and finger rub. Palate moves well without asymmetry. There is normal sternocleidomastoid and trapezius strength bilaterally. Tongue is midline with good strength bilaterally. Neck is with full range of motion without discomfort. There are no cervical bruits. There are no cranial or ocular bruits. Heart is without murmur. Cervical, thoracic, and lumbar spine are nontender to palpation. Gait is slow and cautious but narrow based. Her turns are unsteady. Stance is reasonable eyes open. With outstretched arms there is a mild drift on the right. There are no resting , postural, or action tremors. There is no ataxia with [id number] testing. There is mild clumsiness and weakness in the right hand compared to the left which seems normal. There are no abnormal involuntary movements noted. Motor strength is 5/5 diffusely in the arms bilaterally including deltoids, biceps, brachioradialis, wrist flexors and extensors. Tab Machine Operator strength seems mildly weak at 4/5 on the right compared to the left, which is 5/5. Motor strength is 5/5 diffusely in the legs bilaterally including hip flexors, quadriceps, hamstring, gastrocnemius, tibialis anterior, tibialis posterior, and peroneii muscles bilaterally. Toe extensors are normal and there is good bulk in the extensor digitorum brevis muscle bilaterally. The limbs have good tone without rigidity or spasticity, and there is no atrophy noted. Muscle bulk is normal, there is no tenderness, no myotonia noted to percussion, and no fasciculations seen. Sensory examination is intact to pin and touch throughout all four limbs. Reflexes are 1/4 in the biceps, triceps, brachioradialis, quadriceps, and Achilles tendons bilaterally. Toes are downgoing with plantar stimulation bilaterally. Peripheral pulses are present and of normal quality distally in all four limbs. There is no peripheral edema noted. Laboratory Results Past 24 Hours: 07/08/16 05:46 Red Blood Count 4.25, Mean Corpuscular Volume 93.9, Mean Corpuscular Hemoglobin 31.5, Mean Corpuscular Hemoglobin Concent 33.6, Mean Platelet Volume 10.4, Neutrophils (%) (Auto) 60.5, Lymphocytes (%) (Auto) 24.6, Monocytes (%) (Auto) 11.0, Eosinophils (%) (Auto) 3.1, Basophils (%) (Auto) 0.6, Neutrophils # (Auto ) 3.13, Lymphocytes # (Auto) 1.27, Monocytes # (Auto) 0.57, Eosinophils # (Auto ) 0.16, Basophils # (Auto) 0.03 07/08/16 05:46 Test 07/07/16 18:02 07/07/16 21:23 07/08/16 01:56 07/08/16 05:46 Prothrombin Time 10.7 SECONDS (9.0-12.0) Prothromb Time International Ratio 1.0 (0.9-1.1) Activated Partial Thromboplast Time 26.7 SECONDS (21.0-31.0) Partial Thromboplastin Ratio 1.0 Estimated Average Glucose 148 mg/dl Hemoglobin A1c 6.8 % (4.5-5.6) Total Creatine Kinase 115 U/L (26-192) Creatine Kinase MB 1.6 ng/ml (0.5-3.6) Creatine Kinase MB Ratio 1.4 (0-3.0) Troponin I < 0.015 ng/ml (0-0.045) White Blood Count 5.17 K/uL (4.8-10.8) Red Blood Count 4.25 M/uL (4.2-5.4) Hemoglobin 13.4 g/dL (12.0-16.0) Hematocrit 39.9 % (37-47) Mean Corpuscular Volume 93.9 fL (80-100) Mean Corpuscular Hemoglobin 31.5 pg (25-34) Mean Corpuscular Hemoglobin Concent 33.6 g/dl (32-36) Platelet Count 171 K/uL (130-400) Mean Platelet Volume 10.4 fL (7.4-10.4) Neutrophils (%) (Auto) 60.5 % Lymphocytes (%) (Auto) 24.6 % Monocytes (%) (Auto) 11.0 % Eosinophils (%) (Auto) 3.1 % Basophils (%) (Auto) 0.6 % Neutrophils # (Auto) 3.13 K/uL (1.4-6.5) Lymphocytes # (Auto) 1.27 K/uL (1.2-3.4) Monocytes # (Auto) 0.57 K/uL (0.11-0.59) Eosinophils # (Auto) 0.16 K/uL (0-0.5) Basophils # (Auto) 0.03 K/uL (0-0.2) RDW Standard Deviation 46.8 fL (36.4-46.3) RDW Coefficient of Variation 13.7 % (11.5-14.5) Immature Granulocyte % (Auto) 0.2 % Immature Granulocyte # (Auto) 0.01 K/uL (0.00-0.02) Anion Gap 11.0 mmol/L (3-11) Est Creatinine Clear Calc Drug Dose 63.2 ml/min Estimated GFR () 81.1 Estimated GFR (Non- 70.0 BUN/Creatinine Ratio 19.4 (10-20) Calcium Level 8.9 mg/dl (8.5-10.1) Triglycerides Level 128 mg/dl (0-150) Cholesterol Level 158 mg/dl (0-200) HDL Cholesterol 54 mg/dl LDL Cholesterol, Calculated 78 mg/dl VLDL Cholesterol, Calculated 26 mg/dl Cholesterol/HDL Ratio 2.9 Test 07/08/16 06:30 Bedside Glucose 114 mg/dl (70-90) Imaging CT HEAD WITHOUT CONTRAST (CT) CLINICAL HISTORY: Stroke COMPARISON STUDY: No previous studies for comparison. TECHNIQUE: Axial CT of the brain is performed from the vertex to the skull base. IV contrast was not administered for this examination. CT DOSE: 537.48 mGy.cm FINDINGS: No intra or extra-axial mass lesions are visualized. There is no CT evidence of acute cortical infarction. There is no evidence of midline shift. There is no acute hemorrhage. No calvarial fractures are visualized. There are patchy white matter hypodensities likely on a small vessel basis. There is no evidence of pathologic ventricular dilatation. There is no evidence of acute sinusitis IMPRESSION: No acute intracranial findings Electronically signed by: Matteo Richards M.D. 07/07/2016 5:[address] NECK ANGIO WITH CONTRAST CLINICAL HISTORY: Stroke COMPARISON STUDY: No previous studies for comparison. TECHNIQUE: CT angiography was performed from the aortic arch to the skull base. MIP imaging was performed. The patient was scanned in a dynamic helical fashion during intravenous administration of 115 cc of Optiray 320. CT DOSE: 1132.93 mGy.cm Technique: CT angiogram of the carotid and vertebral arteries was obtained using intravenous contrast and 3-D reconstruction. NASCET criteria was utilized. Findings: The right carotid revealed no evidence of aneurysm and no evidence of dissection. There are atherosclerotic changes at the level the carotid bulb. There is a small ulcerated plaque involving the posterior wall the proximal right internal carotid artery. There is no evidence of hemodynamic significant stenosis. The left carotid revealed no evidence of hemodynamic significant stenosis. There is no evidence of aneurysm. There is no evidence of dissection. There is no evidence of hemodynamically significant vertebral stenosis. There is no evidence of vertebral dissection. IMPRESSION: 1. Atheromatous changes at the level of the right carotid bulb with a small ulcerated plaque involving the posterior wall the proximal right internal carotid artery. 2. No evidence of hemodynamically significant right or left internal carotid artery stenosis. 3. No evidence of vertebral or basilar artery stenosis. 4. No evidence of dissection Electronically signed by: Matteo Richards M.D. 07/07/2016 8:[address] ANGIOGRAPHY HEAD COMBO CT DOSE: CLINICAL HISTORY: Stroke TECHNIQUE: Unenhanced images were obtained the brain. CT angiography was then performed in a dynamic helical fashion during intravenous administration of 115 cc of Optiray 320. MIP imaging was performed COMPARISON STUDY: Noncontrast head CT dated 07/07/2016 FINDINGS: On the noncontrast study, no intra or extra-axial mass lesions are visualized. There is no CT evidence of acute cortical infarction. White matter hypodensities are likely small vessel basis. There is no hydrocephalus. CT angiographic images reveal minor atherosclerotic changes within the carotid siphon. There are no major intracranial branch occlusions. There are no lesion suspicious for aneurysm. There are no findings to indicate dural venous sinus thrombosis. There is no vertebral or basilar artery stenosis. IMPRESSION: 1. Mild atherosclerotic changes. No evidence of aneurysm. No evidence of intracranial branch occlusion. Electronically signed by: Matteo Richards M.D. 07/07/2016 8:36 PM Dictated Date/Time: 07/07/2016 8:31 PM Impression 1. Suspect acute left hemispheric stroke, likely small vessel ischemic disease secondary to her history of hypertension. I'm very concerned that this is "stuttering" and she was not on antiplatelet medication prior to coming into the hospital. These types of strokes can have a stuttering course and required a little more aggressive treatment. Currently she has a mild right-sided facial droop and mild weakness and clumsiness/drift in the right upper extremity. NIH stroke scale equals 2 2. Hypertension not adequately controlled on admission but improved this morning. 3. History of dyslipidemia on simvastatin with an excellent fasting total cholesterol level. 4. History of breast cancer post surgery and radiation, now on hormonal therapy 5. History of heart mesh for atrial septal defect 20 years ago. The concern is whether or not she can have an MRI Plan 1. Check with her stone circular sawyer regarding the mesh to see if she is MRI safe. If so she needs an MRI of the brain to look for acute stroke. If we cannot get an MRI of the brain we could repeat CT scan of the head today or tomorrow. 2. Plavix loading dose of 300 mg was ordered. 3. Continue then with 81 mg aspirin tablet daily and 75 mg Plavix daily for now. 4. PT and OT consults. Her dysarthria improved and I'm not certain she needs speech therapy currently for this. 5. Treat hypertension as you're doing, keeping mean arterial pressure around 100 I discussed this case with Drs. Don and Hussain Overall, I spent 90 minutes in direct patient care this morning
[2016-07-08] MEDS: ASPIRIN 81 MG ECTAB PO SCH (10:28)
[2016-07-08] MEDS: SERTRALINE HCL 50 MG TAB PO SCH (10:29)
[2016-07-08 10:34] LABS: CKMB/CK RATIO 1.2 (0-3.0)
[2016-07-08] MEDS ORDERED: LABETALOL HCL IV 5 MG/ML 20ML IV STA (18:20)
--- NOTE | 2016-07-08 18:29 | Progress Note ---
Progress Note full note to follow w dr thompson's input as well -seen in f/u this afternoon - ongoing R sided facial droop and slurred speech, some clumsiness w hand. notes no choking no coughing. sx ongoing w waxing and waning quality - none of her current symptoms are new in their area of distribution, and none are as severe as her worst was in terms of severity of deficit. extensive d/w pt and granddtr in regards to working dx (lacunar infarcts from small vessel disease) vs ddx (embolic from atrial shunting - seems less likely except for having had L sided sx last night, R sided today) - d/w cardiology - seems not very likely to have had CVA from what is seen on echo , but if in doubt MICH would definitely be more definitive. ---CVA - likely small vessel - antiplatelets as per neurology; BP control (goal right now MAP ~100 - added labetalol prn due to rising pressure through the day) ; still unclear if she can or can't have MRI - and she notes that unless it's definitively clear that she can, she would not want done. for now plan will be repeat CT in AM. if appearing embolic, then will have to proceed w MICH and/or anticoagulation. if not, then continue to treat as small vessel disease. due to lipids not being elevated, and some literature suggesting increased risk of ICH with marked lipid suppression in older individuals - will reduce lipitor to 20mg.
[2016-07-08] MEDS ORDERED: LABETALOL HCL IV 5 MG/ML 20ML IV PRN (18:30)
[2016-07-08] MEDS ORDERED: POTASSIUM CHLORIDE 20 MEQ TABCR PO ONE (20:45)
--- NOTE | 2016-07-08 21:03 | Family Medicine Progress Note ---
Progress Note Date of Service Jul 08, 2016. Subjective Pt evaluation today including: conversation w/ patient, conversation w/ family , physical exam, chart review, lab review Patient sitting up in chair comfortably. She She denies onset of new symptoms, although her daughter in law says lsat night she had left sided facial droop, which seems to have resolved over night, but now she has mild right sided facial droop. She also believe that the slurred speech has largely resolved. Patient says she does not really see a significant difference in herself from baseline. She denies one side paralysis or weakness of any of her limbs, she is not having difficulty speaking or swallowing or word finding. No current pain symptoms. Denies lightheadedness/dizziness, no numbness or tingling in her extremities. 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 Longstanding urinary incontinence, Bowels ok. No previous history of similar symptoms Cardiac history significant for HTN and cardiac surgery requiring mesh insertion Constitutional: No chills, No fever, No weakness Respiratory: No cough, No shortness of breath, No wheezing Cardiovascular: No chest pain, No edema, No palpitations Abdomen: No constipation, No diarrhea, No nausea, No pain, No vomiting Female : No dysuria Objective Vital Signs Date Time Temp Pulse Resp B/P Pulse Ox O2 Delivery O2 Flow Rate FiO2 07/08/16 19:58 36.9 74 20 168/87 96 Room Air 07/08/16 15:29 37.1 66 16 167/95 95 Room Air 07/08/16 15:00 Room Air 07/08/16 12:00 Room Air 07/08/16 11:58 36.9 74 20 148/63 96 07/08/16 08:20 Room Air 07/08/16 07:51 36.7 65 18 154/62 96 07/08/16 04:00 96 Room Air 07/08/16 03:30 36.5 64 18 169/90 96 Room Air 07/07/16 23:59 96 Room Air 07/07/16 23:04 36.8 74 18 137/78 96 Room Air 07/07/16 21:15 36.8 72 18 179/93 95 Room Air Physical Exam General Appearance: WD/WN, no apparent distress Respiratory/Chest: chest non-tender, lungs clear, normal breath sounds, no respiratory distress Cardiovascular: regular rate, rhythm, no edema, no murmur Abdomen: normal bowel sounds, non tender, soft Extremities: no pedal edema, no calf tenderness Neurologic/Psychiatric: alert, normal mood/affect, oriented x 3, + facial droop (right sided), + 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) Skin: normal color, warm/dry, no rash Laboratory Results Results Past 24 Hours Test 07/07/16 21:23 07/08/16 01:56 07/08/16 05:46 07/08/16 06:30 Range/Units Estimated Average Glucose 148 mg/dl Hemoglobin A1c 6.8 4.5-5.6 % Total Creatine Kinase 132 115 26-192 U/L Creatine Kinase MB 1.5 1.6 0.5-3.6 ng/ml Creatine Kinase MB Ratio 1.1 1.4 0-3.0 Troponin I < 0.015 < 0.015 0-0.045 ng/ml White Blood Count 5.17 4.8-10.8 K/uL Red Blood Count 4.25 4.2-5.4 M/uL Hemoglobin 13.4 12.0-16.0 g/dL Hematocrit 39.9 37-47 % Mean Corpuscular Volume 93.9 80-100 fL Mean Corpuscular Hemoglobin 31.5 25-34 pg Mean Corpuscular Hemoglobin Concent 33.6 32-36 g/dl Platelet Count 171 130-400 K/uL Mean Platelet Volume 10.4 7.4-10.4 fL Neutrophils (%) (Auto) 60.5 % Lymphocytes (%) (Auto) 24.6 % Monocytes (%) (Auto) 11.0 % Eosinophils (%) (Auto) 3.1 % Basophils (%) (Auto) 0.6 % Neutrophils # (Auto) 3.13 1.4-6.5 K/uL Lymphocytes # (Auto) 1.27 1.2-3.4 K/uL Monocytes # (Auto) 0.57 0.11-0.59 K/uL Eosinophils # (Auto) 0.16 0-0.5 K/uL Basophils # (Auto) 0.03 0-0.2 K/uL RDW Standard Deviation 46.8 36.4-46.3 fL RDW Coefficient of Variation 13.7 11.5-14.5 % Immature Granulocyte % (Auto) 0.2 % Immature Granulocyte # (Auto) 0.01 0.00-0.02 K/uL Sodium Level 141 136-145 mmol/L Potassium Level 3.4 3.5-5.1 mmol/L Chloride Level 105 98-107 mmol/L Carbon Dioxide Level 25 21-32 mmol/L Anion Gap 11.0 3-11 mmol/L Blood Urea Nitrogen 16 7-18 mg/dl Creatinine 0.83 0.60-1.20 mg/dl Est Creatinine Clear Calc Drug Dose 63.2 ml/min Estimated GFR () 81.1 Estimated GFR (Non- 70.0 BUN/Creatinine Ratio 19.4 10-20 Random Glucose 108 70-99 mg/dl Calcium Level 8.9 8.5-10.1 mg/dl Triglycerides Level 128 0-150 mg/dl Cholesterol Level 158 0-200 mg/dl HDL Cholesterol 54 mg/dl LDL Cholesterol, Calculated 78 mg/dl VLDL Cholesterol, Calculated 26 mg/dl Cholesterol/HDL Ratio 2.9 Bedside Glucose 114 70-90 mg/dl Test 07/08/16 09:56 07/08/16 20:29 Range/Units Total Creatine Kinase 113 26-192 U/L Creatine Kinase MB 1.3 0.5-3.6 ng/ml Creatine Kinase MB Ratio 1.2 0-3.0 Troponin I < 0.015 0-0.045 ng/ml Assessment and Plan 75 year old female with previous breast cancer, hyperlipidemia, hypertension, & mild depression referred by PCP for 3 day history of slurred speech, facial droop and difficulties with balance with fall thereafter. CVA - CT head without contrast:No acute intracranial findings - likely small vessel related - Neurology consulted. Appreciative of Dr. Baker's recommendations - Plavix loading dose of 300mg, then continue then with 81 mg aspirin tablet daily and 75 mg Plavix daily, as per neurology - Brain MRI recommended, however patient patient believes she was told she was not allowed to have MRI. Discussion with her PCP, Dr. Toussaint and her design maker, Dr Post was unable to determine any cause of contraindication based on past history and surgical post op notes, however, patient says that unless it's definitively clear that she can, she would not want one done - Repeat CT in the morning. If appearing embolic, then follow up with [facility] and/ or anticoagulation Weakness - PT and OT consults. Slurred speech - Dysarthria improved - Does not currently require speech therapy for this. HTN - Aim to keeping mean arterial pressure around 100, as per neurology - Hold HCTZ for now - IV labetalol PRN HLD - Patient not a suitable candidate for high dose statin given some literature suggesting increased risk of ICH with marked lipid suppression in older individuals with normal lipid profile - Reduce atorvastatin from 40mg to 20mg Breast Ca - Continue home Aromasin Dispo - Code status: full code - Telemetry Resident Physician Supervision Note: I interviewed and examined the patient. Discussed with Dr. Nixon and agree with findings and plan as documented in the note. Any exceptions or clarifications are listed here: None Documented By: Brandt Don see blank progress note as well. stuttering sx but current range overall improved. vitals noted, BP elevated - rechecked myself and ~190/90 range. R facial droop sl R arm clumsiness CVA - antiplatelets, statin (reduced to 20mg atorva due to lower-end lipids and data suggesting risk of ICH in older individuals with "too suppressed" lipids), BP management, A1c pending HTN - labetalol prn MAP > 110 (goal to keep around 100, but also want to avoid iatrogenic hypotension) DVT proph - heparin SQ Continued [facility] stay due to: ambulation difficulties
[2016-07-08] MEDS: ATORVASTATIN 20 MG TAB PO SCH (21:24)
[2016-07-08] MEDS: ACETAMINOPHEN 325 MG TAB PO PRN (21:25)
[2016-07-09] VITALS (9 sets, daily range): BP systolic 153–198; BP diastolic 71–106; PULSE 60–71; TEMP 36.6–36.9; O2SAT 93–98
[2016-07-09] MEDS: HEPARIN SOD 5000 UNIT/0.5 ML CARP SQ SCH ×3 (06:11→21:37)
[2016-07-09 06:17] LABS: BASO % 0.6 %; BASO ABS # 0.03 K/uL (0-0.2); COMPLETE YES; EOS % 2.5 %; HEMATOCRIT 39.3 % (37-47); IG% 0.2 %; LYMPH % 26.3 %; LYMPH ABS # 1.35 K/uL (1.2-3.4); MEAN CELL VOLUME 93.8 fL (80-100); MEAN CORPUSCULAR HEMOGLOBIN 31.7 pg (25-34); MEAN CORPUSCULAR HGB CONC 33.8 g/dl (32-36); MEAN PLATELET VOLUME 10.3 fL (7.4-10.4); MONO % 7.2 %; NEUT % 63.2 %; PLATELET COUNT 159 K/uL (130-400); RED BLOOD COUNT 4.19 M/uL (4.2-5.4); WHITE BLOOD COUNT 5.13 K/uL (4.8-10.8)
--- NOTE | 2016-07-09 06:41 | Neurology Progress Notes ---
Neurology Progress Note Date of Service Jul 09, 2016. Subjective The patient feels fairly good, with no new pain, headache, or weakness. She says she slept well. Nursing reports no new events. MRI of the brain apparently cannot be done because of previous cardiac procedure. Echocardiogram was unremarkable except for a possible right to left shunt with Valsalva maneuver Objective Date Time Temp Pulse Resp B/P Pulse Ox O2 Delivery O2 Flow Rate FiO2 07/09/16 04:06 36.6 62 18 166/71 96 Room Air 07/09/16 04:02 Room Air 07/09/16 02:40 64 176/94 07/09/16 02:35 64 185/92 93 07/09/16 02:18 70 198/106 93 07/09/16 00:02 Room Air 07/08/16 23:48 69 178/85 07/08/16 23:46 36.9 65 18 176/86 96 Room Air 07/08/16 20:04 Room Air 07/08/16 19:58 36.9 74 20 168/87 96 Room Air 07/08/16 15:29 37.1 66 16 167/95 95 Room Air 07/08/16 15:00 Room Air 07/08/16 12:00 Room Air 07/08/16 11:58 36.9 74 20 148/63 96 07/08/16 08:20 Room Air 07/08/16 07:51 36.7 65 18 154/62 96 Last 24 Hours Test 07/08/16 09:56 07/08/16 20:54 07/09/16 05:34 Total Creatine Kinase 113 U/L Creatine Kinase MB 1.3 ng/ml Creatine Kinase MB Ratio 1.2 Troponin I < 0.015 ng/ml Magnesium Level 2.1 mg/dl White Blood Count 5.13 K/uL Red Blood Count 4.19 M/uL Hemoglobin 13.3 g/dL Hematocrit 39.3 % Mean Corpuscular Volume 93.8 fL Mean Corpuscular Hemoglobin 31.7 pg Mean Corpuscular Hemoglobin Concent 33.8 g/dl Platelet Count 159 K/uL Mean Platelet Volume 10.3 fL Neutrophils (%) (Auto) 63.2 % Lymphocytes (%) (Auto) 26.3 % Monocytes (%) (Auto) 7.2 % Eosinophils (%) (Auto) 2.5 % Basophils (%) (Auto) 0.6 % Neutrophils # (Auto) 3.24 K/uL Lymphocytes # (Auto) 1.35 K/uL Monocytes # (Auto) 0.37 K/uL Eosinophils # (Auto) 0.13 K/uL Basophils # (Auto) 0.03 K/uL RDW Standard Deviation 46.3 fL RDW Coefficient of Variation 13.5 % Immature Granulocyte % (Auto) 0.2 % Immature Granulocyte # (Auto) 0.01 K/uL Exam: She is sleeping, but easily arousable with gentle voice. Speech does not have distinct dysarthria or aphasia. Extraocular eye muscles are intact without nystagmus. She does have a mild droop at the corner of mouth on the right but it does move well with voluntary smile. With outstretched arms there is a drift in the right upper extremity and there is some very mild weakness in the right hand. There are no abnormal involuntary movements. Current Inpatient Medications Medications (Trade) Dose Ordered Sig/Sarika Route Start Time Stop Time Status Last Admin Dose Admin Ioversol (Optiray 320) 100 ml UD PRN IV 07/07/16 20:00 07/11/16 19:59 Aspirin (Ecotrin Tab) 81 mg QAM PO 07/08/16 09:00 08/07/16 08:59 07/08/16 10:28 81 MG Miscellaneous Information (Pharmacist Discharge Med Rec Consult) 1 ea UD PRN N/A 07/07/16 20:00 08/06/16 19:59 Heparin Sodium (Porcine) (Heparin Sq 5000 Unit/0.5ml) 5,000 unit Q8 SQ 07/07/16 22:00 08/06/16 21:59 07/09/16 06:11 5,000 UNIT Acetaminophen (Tylenol Tab) 650 mg Q4H PRN PO 07/07/16 20:00 08/06/16 19:59 07/08/16 21:25 650 MG Al Hydrox/Mg Hydrox/Simethicone (Maalox Max Susp) 15 ml Q4H PRN PO 07/07/16 20:00 08/06/16 19:59 Ondansetron HCl (Zofran Inj) 4 mg Q6H PRN IV 07/07/16 20:00 08/06/16 19:59 Nitroglycerin (Nitrostat Tab) 0.4 mg UD PRN SL 07/07/16 20:00 08/06/16 19:59 Metoprolol Tartrate (Lopressor Iv) 5 mg Q4H PRN IV 07/07/16 20:00 08/06/16 19:59 07/08/16 23:48 5 MG Sertraline HCl (Zoloft Tab) 25 mg DAILY PO 07/08/16 09:00 08/07/16 08:59 07/08/16 10:29 25 MG Miscellaneous Information (Order Awaiting Action) 1 ea QS N/A 07/08/16 00:00 08/07/16 00:00 Clopidogrel Bisulfate (plAVix TAB) 75 mg QAM PO 07/09/16 09:00 08/08/16 08:59 Labetalol HCl (Normodyne IV) 10 mg Q4 PRN IV 07/08/16 18:30 08/07/16 18:29 07/09/16 02:39 10 MG Atorvastatin Calcium (Lipitor Tab) 20 mg HS PO 07/08/16 21:00 08/07/16 20:59 07/08/16 21:24 20 MG Impression 1. Suspect acute left hemispheric stroke, likely small vessel ischemic disease , secondary to her history of hypertension. I was concerned that this was a "stuttering" type stroke in a antiplatelet medication naive patient (prior to hospitalization). These types of strokes typically required a little more aggressive treatment, and she had a clopidogrel load of 300 mg yesterday. Currently she has a mild right-sided facial droop and mild weakness and clumsiness/drift in the right upper extremity. NIH stroke scale equals 2. This appears to be the same as yesterday. 2. Hypertension, still not adequately controlled 3. History of dyslipidemia on simvastatin with an excellent fasting total cholesterol level. 4. History of breast cancer post surgery and radiation, now on hormonal therapy 5. History of heart mesh for atrial septal defect 20 years ago. The concern is whether or not she can have an MRI 6. Echocardiogram shows possible right to left atrial shunt with Valsalva. The procedure she had 20 years ago was supposed to close a shunt. Plan 1. Check with her stone grader regarding the mesh to see if she is MRI safe. If so, she needs an MRI of the brain to look for acute stroke. If we cannot get an MRI of the brain we could repeat CT scan of the head today 2. Continue clopidogrel 75 mg daily 3. Continue 81 mg aspirin tablet daily 4. Continue PT, OT, and speech consults 5. Treat hypertension as you're doing, keeping mean arterial pressure around 100 6. I do not see a need for anticoagulation at this time unless cardiology disagrees (stick with antiplatelet medication for now.
[2016-07-09 06:52] LABS: BUN/CREATININE RATIO 17.2 (10-20); CALCIUM 8.8 mg/dl (8.5-10.1); CREATININE 0.78 mg/dl (0.60-1.20); POTASSIUM 3.8 mmol/L (3.5-5.1)
[2016-07-09] MEDS: CLOPIDOGREL BISULFATE 75 MG TAB PO SCH (07:42)
[2016-07-09] MEDS: ASPIRIN 81 MG ECTAB PO SCH (07:42)
[2016-07-09] MEDS: SERTRALINE HCL 50 MG TAB PO SCH (07:42)
[2016-07-09] MEDS: LABETALOL HCL IV 5 MG/ML 20ML IV PRN ×2 (11:28→18:08)
--- NOTE | 2016-07-09 14:07 | DIAGNOSTIC IMAGING REPORT ---
CT HEAD WITHOUT CONTRAST (CT) CLINICAL HISTORY: Stroke COMPARISON STUDY: 07/07/2016 TECHNIQUE: Axial CT of the brain is performed from the vertex to the skull base. IV contrast was not administered for this examination. CT DOSE: 537.48 mGy.cm FINDINGS: No intra or extra-axial mass lesions are visualized. There is no CT evidence of acute cortical infarction. There is no evidence of midline shift. There is no acute hemorrhage. No calvarial fractures are visualized. There are patchy white matter hypodensities likely on a small vessel basis. There is no evidence of pathologic ventricular dilatation. There is no evidence of acute sinusitis If the patient continues to demonstrate unexplained neurological symptoms, an MRI could be obtained in follow-up. IMPRESSION: No acute intracranial findings Electronically signed by: Matteo Richards M.D. 07/09/2016 2:06 PM Dictated Date/Time: 07/09/2016 2:03 PM
--- NOTE | 2016-07-09 17:22 | CARDIOLOGY CONSULTATION ---
DATE OF CONSULTATION: 07/09/2016 CONSULTATION REQUESTED BY: Dr. Don. REASON FOR CONSULTATION: Management post prior ASD repair, question MRI compatibility. HISTORY OF PRESENT ILLNESS: Ms. Mann is a very pleasant 75-year-old woman with a history of breast cancer, hypertension, hyperlipidemia who was admitted in the setting of slurred speech and found to have acute left-sided CVA. Cardiac history remarkable for prior ASD repair. Cardiology consulted for further recommendations regarding her history of ASD and whether or not she could potentially get an MRI. The patient initially presented with 3 days of difficulty with balance to her primary care physician. She was admitted 3 days ago and since that time has been seen by neurology and who suspects an acute left hemispheric stroke secondary to small vessel ischemic disease. She has subsequently been started on Plavix. Neurology also recommending an MRI. Since being admitted, patient has had resolving neurologic deficits and states just has some mild numbness in her right upper extremity as well as in the right side of her face. In regards to her prior cardiac history, the patient is followed by Dr. Post with [facility] cardiology. 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 At that time she had her pulmonary veins and sinus stenosis ASD repaired with a pericardial baffle into the left atrium. The SVC was repaired with hemashield patch. Surgery was uncomplicated and the patient has done well since that time. During current hospitalization patient underwent an echocardiogram which showed preserved LV function, mildly reduced RV function, the interatrial septum was noted to be hypermobile and there was a difficult bubble study to interpret, but it was read as generally positive with a right to left shunt with Valsalva. PAST MEDICAL HISTORY: 1. 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 Chino. 2. Breast cancer. 3. Hypertension. 4. Hyperlipidemia. 5. Depression. PAST SURGICAL HISTORY: 1. Cardiac surgery as discussed above. 2. Mastectomy. FAMILY HISTORY: No pertinent family history. SOCIAL HISTORY: She is a never smoker. Denies any alcohol or illicit drugs. She is . 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 ALLERGIES: LATEX. HOME MEDICATIONS: 1. Calcium carbonate/vitamin D. 2. Aromasin. 3. Hydrochlorothiazide 25 mg daily. 4. Multivitamin. 5. Olmesartan Benicar 40 mg q.a.m. 6. Sertraline. 7. Simvastatin 20 mg at bedtime. REVIEW OF SYSTEMS: Ten point review of systems was completed and otherwise negative or listed in HPI. PHYSICAL EXAMINATION: VITAL SIGNS: Temperature 36.9, pulse 71, blood pressure 156/97, satting 98% on room air. GENERAL: The patient appears comfortable in no acute distress. HEENT: Sclerae are anicteric. Oropharynx is clear. Mucous membranes are moist. NECK: Supple with no lymphadenopathy. She has no jugular venous distention. LUNGS: Clear to auscultation bilaterally. CARDIAC: She has a regular rate and rhythm with no appreciable murmurs, rubs or gallops. ABDOMEN: Soft, nontender, nondistended with positive bowel sounds. EXTREMITIES: Warm. She has no significant lower extremity edema, has intact distal pulses. SKIN: Shows no rashes or lesions. NEUROLOGIC: Pupils equal and reactive to light. No facial sensation deficits. There is a mild persistent right facial droop. She has 4/5 strength on the upper extremity compared to the left. Otherwise, strength and sensation are intact throughout. LABORATORY DATA: White blood cell count 5.1, hemoglobin 13.3, platelets 159. Sodium 143, potassium 3.8, BUN 13, creatinine 0.8. INR 1.0. Prior imaging head CT initially showed no acute intracranial findings. Chest x-ray showed no acute cardiopulmonary process. Head CTA showed mild atherosclerotic change, no evidence of aneurysm, no evidence of intracranial branch occlusion. CTA of the neck showed atheromatous changes to the level of the right carotid bulb with a small ulcerated plaque involving the posterior wall of the proximal right internal carotid artery. Telemetry was reviewed, no events were noted. Echo, normal LV size, normal LV wall thickness, EF 65%. Normal RV size, mild RV dysfunction, interatrial septum hypermobile, difficult bubble study to interpret as there appears to be right to left shunt with Valsalva. IMPRESSION AND PLAN: 1. Acute left hemisphere stroke thought secondary to small vessel ischemic disease. 2. Hypertension. 3. Dyslipidemia. 4. History of Sinous Venosus atrial septal defect with partially anomalous pulmonary venous return, status post surgical repair. I have reviewed patient's operative report from her surgical repair from 1995. The patient's anomalous return and sinus venosus ASD were repaired with a pericardial patch, her SVC was repaired with polyester graft material. As such, no intracardiac metallic objects were used and from a cardiac standpoint, would be okay to undergo MRI. The patient states that she was told that due to her old sternal wires she could not have an MRI. However, almost uniformly sternal wires are MRI compatible. Unfortunately, our MRI department does not have a ferromagnetic detector to further evaluate her sternal wires. While I feel relatively confident that the patient could undergo an MRI without problems, the patient is reluctant to do so, if other options are available and would proceed with those for further intracranial imaging if possible. In regards to her positive bubble study on echocardiogram, I have reviewed patient's echo and imaging is technically limited. No active acute issues and further surveillance of her congenital heart disease can be done as an outpatient per Dr. Post as needed, either [facility] or possible cardiac MRI. No further testing necessary while inpatient. Thank you for allowing us to participate in the care of this patient. Dr. Post will resume care on Monday. GIANNI
--- NOTE | 2016-07-09 19:33 | Family Medicine Progress Note ---
Progress Note Date of Service Jul 09, 2016. Subjective Pt evaluation today including: conversation w/ patient, conversation w/ family , physical exam, chart review, lab review Patient lying comfortably in bed. She denies onset of new symptoms. She acknowledges she still has mild right sided facial droop, occasional slurring of speech, and decreased dexterity of her right hand. She denies one-sided paralysis or weakness of any of her limbs, she is not having difficulty swallowing or word finding. No current pain symptoms. Denies lightheadedness/ dizziness, no numbness or tingling in her extremities. When asked about ambulation, patient admits her balance is off. Longstanding urinary incontinence , Bowels ok. Constitutional: No fatigue, No fever, No weakness Respiratory: No cough, No shortness of breath Cardiovascular: No PND, No chest pain, No edema, No orthopnea, No palpitations Abdomen: No constipation, No diarrhea, No nausea, No pain, No vomiting Female : No dysuria Neurologic: + balance problems, No numbness/tingling, No paralysis, No weakness Objective Vital Signs Date Time Temp Pulse Resp B/P Pulse Ox O2 Delivery O2 Flow Rate FiO2 07/09/16 16:40 36.8 60 22 177/82 98 Room Air 07/09/16 13:20 157/78 07/09/16 12:05 Room Air 07/09/16 11:33 36.8 68 18 190/78 96 Room Air 07/09/16 07:45 36.9 71 18 156/97 98 Room Air 07/09/16 07:40 Room Air 07/09/16 04:06 36.6 62 18 166/71 96 Room Air 07/09/16 04:02 Room Air 07/09/16 02:40 64 176/94 07/09/16 02:35 64 185/92 93 07/09/16 02:18 70 198/106 93 07/09/16 00:02 Room Air 07/08/16 23:48 69 178/85 07/08/16 23:46 36.9 65 18 176/86 96 Room Air 07/08/16 20:04 Room Air 07/08/16 19:58 36.9 74 20 168/87 96 Room Air Physical Exam General Appearance: WD/WN, no apparent distress Eyes: normal inspection, PERRL, EOMI, sclerae normal Neck: supple, no adenopathy Respiratory/Chest: lungs clear, normal breath sounds, no respiratory distress, no accessory muscle use Cardiovascular: regular rate, rhythm, no edema, no murmur Abdomen: normal bowel sounds, non tender, soft Extremities: normal inspection, no pedal edema, no calf tenderness Neurologic/Psychiatric: 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, alert, normal mood/affect, oriented x 3, + pertinent finding (finger to nose test better performed by left hand than right) Laboratory Results Results Past 24 Hours Test 07/08/16 20:54 07/09/16 05:34 Range/Units Magnesium Level 2.1 1.8-2.4 mg/dl White Blood Count 5.13 4.8-10.8 K/uL Red Blood Count 4.19 4.2-5.4 M/uL Hemoglobin 13.3 12.0-16.0 g/dL Hematocrit 39.3 37-47 % Mean Corpuscular Volume 93.8 80-100 fL Mean Corpuscular Hemoglobin 31.7 25-34 pg Mean Corpuscular Hemoglobin Concent 33.8 32-36 g/dl Platelet Count 159 130-400 K/uL Mean Platelet Volume 10.3 7.4-10.4 fL Neutrophils (%) (Auto) 63.2 % Lymphocytes (%) (Auto) 26.3 % Monocytes (%) (Auto) 7.2 % Eosinophils (%) (Auto) 2.5 % Basophils (%) (Auto) 0.6 % Neutrophils # (Auto) 3.24 1.4-6.5 K/uL Lymphocytes # (Auto) 1.35 1.2-3.4 K/uL Monocytes # (Auto) 0.37 0.11-0.59 K/uL Eosinophils # (Auto) 0.13 0-0.5 K/uL Basophils # (Auto) 0.03 0-0.2 K/uL RDW Standard Deviation 46.3 36.4-46.3 fL RDW Coefficient of Variation 13.5 11.5-14.5 % Immature Granulocyte % (Auto) 0.2 % Immature Granulocyte # (Auto) 0.01 0.00-0.02 K/uL Sodium Level 143 136-145 mmol/L Potassium Level 3.8 3.5-5.1 mmol/L Chloride Level 109 98-107 mmol/L Carbon Dioxide Level 26 21-32 mmol/L Anion Gap 8.0 3-11 mmol/L Blood Urea Nitrogen 13 7-18 mg/dl Creatinine 0.78 0.60-1.20 mg/dl Est Creatinine Clear Calc Drug Dose 68.9 ml/min Estimated GFR () 87.4 Estimated GFR (Non- 75.4 BUN/Creatinine Ratio 17.2 10-20 Random Glucose 122 70-99 mg/dl Calcium Level 8.8 8.5-10.1 mg/dl Assessment and Plan 75 year old female with previous breast cancer, hyperlipidemia, hypertension, & mild depression referred by PCP for 3 day history of slurred speech, facial droop and difficulties with balance with fall thereafter. CVA - CT head without contrast:No acute intracranial findings - CT neck angio with contrast: Atheromatous changes at the level of the right carotid bulb with a small ulcerated plaque involving the posterior wall the proximal right internal carotid artery. No evidence of hemodynamically significant right or left internal carotid artery stenosis. No evidence of vertebral or basilar artery stenosis. No evidence of dissection - Echo performed to rule out cardiac cause of stroke: Normal left ventricle size , wall thickness, wall motion, and systolic function. LVEF 65%. Right ventricle is normal size. Mildly reduced RV function with TAPSE 1.2 cm. Intraatrial septum is hypermobile. With a difficult bubble study to interpret there appears to be a right to left shunt with valsalva. - likely small vessel related - Neurology consulted. Appreciative of Dr. Baker's recommendations - Plavix loading dose of 300mg, then continue then with 81 mg aspirin tablet daily and 75 mg Plavix daily, as per neurology - Brain MRI recommended, however patient patient believes she was told she was not allowed to have MRI. Discussion with her PCP, Dr. Toussaint and her disintegrator operator, Dr Post was unable to determine any cause of contraindication based on past history and surgical post op notes, however, patient says that unless it's definitively clear that she can, she would not want one done - Repeat CT shows no acute intracranial changes - Given shunt through septum, concern for paradoxical emboli. 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 Post be at either [facility] or if determined to be compatible by cardiac MRI. No further testing necessary while inpatient. Weakness and slurred speech - PT and OT consults. - Speech Slurred speech - Dysarthria improved - Speech evaluation consult HTN - Aim to keeping mean arterial pressure around 100, as per neurology - Hold HCTZ for now - IV labetalol 10mg PRN MAP >110 did not adequately control blood pressure - Titrated to IV labetalol 10mg PRN MAP >110, has led to better BP control HLD - Patient not a suitable candidate for high dose statin given some literature suggesting increased risk of ICH with marked lipid suppression in older individuals with normal lipid profile - Reduce atorvastatin from 40mg to 20mg Breast Ca - Continue home Aromasin Dispo - Code status: full code - Telemetry - Aiming for transfer to [facility] for rehabilitation when safe for hospital discharge Resident Physician Supervision Note: I interviewed and examined the patient. Discussed with Dr. Nixon and agree with findings and plan as documented in the note. Any exceptions or clarifications are listed here: None Documented By: Brandt Don feeling better, no new numbness or weakness. symptoms fairly stable. BP has been up. discussed with pt and family extensively. answered all questions to the best of my ability. >30mins face to face. vitals noted, BP up (late addendum did improve w IV labetalol 20mg) mild slurred speech, overall improved. nad breathing unlabored CVA - neg CT head and no signs of PE making embolic from ASD being highly unlikely (combined with TTE being questionable on R-L shunt as well) -- all plead heavily against embolic making anticoagulation more risk than benefit, and making [facility] right now more risk than benefit. continue plavix, continue to titrate BP control. for transfer to rehab once oral BP control affected DVT proph - heparin SQ Continued [facility] stay due to: multiple IV medications needed, home environment unsafe for pt
[2016-07-09] MEDS: ATORVASTATIN 20 MG TAB PO SCH (20:43)
[2016-07-09] MEDS: ACETAMINOPHEN 325 MG TAB PO PRN (20:43)
[2016-07-10] VITALS (8 sets, daily range): BP systolic 138–173; BP diastolic 72–86; PULSE 59–76; TEMP 36.7–37; O2SAT 93–96
[2016-07-10] MEDS: LABETALOL HCL IV 5 MG/ML 20ML IV PRN (04:27)
[2016-07-10 05:55] LABS: BASO % 0.5 %; BASO ABS # 0.03 K/uL (0-0.2); COMPLETE YES; EOS % 3.2 %; HEMATOCRIT 37.4 % (37-47); IG% 0.3 %; LYMPH % 21.5 %; LYMPH ABS # 1.28 K/uL (1.2-3.4); MEAN CORPUSCULAR HEMOGLOBIN 31.7 pg (25-34); MEAN CORPUSCULAR HGB CONC 33.7 g/dl (32-36); MEAN PLATELET VOLUME 10.3 fL (7.4-10.4); MONO % 8.9 %; NEUT % 65.6 %; PLATELET COUNT 163 K/uL (130-400); RED BLOOD COUNT 3.98 M/uL (4.2-5.4); WHITE BLOOD COUNT 5.94 K/uL (4.8-10.8)
[2016-07-10] MEDS: HEPARIN SOD 5000 UNIT/0.5 ML CARP SQ SCH ×3 (06:04→22:17)
[2016-07-10 06:29] LABS: BUN/CREATININE RATIO 17.9 (10-20); CALCIUM 8.8 mg/dl (8.5-10.1); CREATININE 0.77 mg/dl (0.60-1.20); POTASSIUM 3.9 mmol/L (3.5-5.1)
--- NOTE | 2016-07-10 07:36 | Neurology Progress Notes ---
Neurology Progress Note Date of Service Jul 10, 2016. Subjective Patient tells me that she had a good day yesterday feeling a little bit better. She feels that her walking and strength and speech are little better. She has no pain or headache currently. She is not dizzy. Cardiology consult was obtained and Dr. Phillips felt that there was no contraindication from a cardiac standpoint to get an MRI. The cardiac procedure did not involve manual but there were sternal wires involved. Patient is very reluctant to "take a chance" CT scan of the head yesterday was unremarkable with no obvious stroke. CBC and chem profile were unremarkable. Objective Date Time Temp Pulse Resp B/P Pulse Ox O2 Delivery O2 Flow Rate FiO2 07/10/16 04:30 138/72 07/10/16 04:00 Room Air 07/10/16 04:00 36.8 59 16 173/86 93 Room Air 07/10/16 00:29 36.7 61 20 160/81 96 Room Air 07/09/16 23:59 Room Air 07/09/16 20:40 36.8 62 18 153/81 96 Room Air 07/09/16 20:00 Room Air 07/09/16 16:40 36.8 60 22 177/82 98 Room Air 07/09/16 13:20 157/78 07/09/16 12:05 Room Air 07/09/16 11:33 36.8 68 18 190/78 96 Room Air 07/09/16 07:45 36.9 71 18 156/97 98 Room Air 07/09/16 07:40 Room Air Last 24 Hours Test 07/10/16 05:20 White Blood Count 5.94 K/uL Red Blood Count 3.98 M/uL Hemoglobin 12.6 g/dL Hematocrit 37.4 % Mean Corpuscular Volume 94.0 fL Mean Corpuscular Hemoglobin 31.7 pg Mean Corpuscular Hemoglobin Concent 33.7 g/dl Platelet Count 163 K/uL Mean Platelet Volume 10.3 fL Neutrophils (%) (Auto) 65.6 % Lymphocytes (%) (Auto) 21.5 % Monocytes (%) (Auto) 8.9 % Eosinophils (%) (Auto) 3.2 % Basophils (%) (Auto) 0.5 % Neutrophils # (Auto) 3.89 K/uL Lymphocytes # (Auto) 1.28 K/uL Monocytes # (Auto) 0.53 K/uL Eosinophils # (Auto) 0.19 K/uL Basophils # (Auto) 0.03 K/uL RDW Standard Deviation 46.6 fL RDW Coefficient of Variation 13.7 % Immature Granulocyte % (Auto) 0.3 % Immature Granulocyte # (Auto) 0.02 K/uL Sodium Level 142 mmol/L Potassium Level 3.9 mmol/L Chloride Level 109 mmol/L Carbon Dioxide Level 23 mmol/L Anion Gap 10.0 mmol/L Blood Urea Nitrogen 14 mg/dl Creatinine 0.77 mg/dl Est Creatinine Clear Calc Drug Dose 69.8 ml/min Estimated GFR () 88.8 Estimated GFR (Non- 76.6 BUN/Creatinine Ratio 17.9 Random Glucose 118 mg/dl Calcium Level 8.8 mg/dl Imaging: CT HEAD WITHOUT CONTRAST (CT) CLINICAL HISTORY: Stroke COMPARISON STUDY: 07/07/2016 TECHNIQUE: Axial CT of the brain is performed from the vertex to the skull base. IV contrast was not administered for this examination. CT DOSE: 537.48 mGy.cm FINDINGS: No intra or extra-axial mass lesions are visualized. There is no CT evidence of acute cortical infarction. There is no evidence of midline shift. There is no acute hemorrhage. No calvarial fractures are visualized. There are patchy white matter hypodensities likely on a small vessel basis. There is no evidence of pathologic ventricular dilatation. There is no evidence of acute sinusitis If the patient continues to demonstrate unexplained neurological symptoms, an MRI could be obtained in follow-up. IMPRESSION: No acute intracranial findings Electronically signed by: Matteo Richards M.D. 07/09/2016 2:06 PM Dictated Date/Time: 07/09/2016 2:03 PM Exam: She is awake and alert. Her speech is perhaps slightly dysarthric but there is no aphasia. She is pleasant and follows commands well. Mood and affect are normal and appropriate and thought processes seem intact. Extraocular eye muscles are intact without nystagmus. Pupils are 3-4 mm bilaterally and reactive to light. There is a slight droop at the corner of the mouth on the right but she can move well. There is no drift with outstretched arms this morning. She has good strength in facility of the hands bilaterally. Leg strength is normal and symmetrical bilaterally as well. Current Inpatient Medications Medications (Trade) Dose Ordered Sig/Sarika Route Start Time Stop Time Status Last Admin Dose Admin Ioversol (Optiray 320) 100 ml UD PRN IV 07/07/16 20:00 07/11/16 19:59 Aspirin (Ecotrin Tab) 81 mg QAM PO 07/08/16 09:00 08/07/16 08:59 07/09/16 07:42 81 MG Miscellaneous Information (Pharmacist Discharge Med Rec Consult) 1 ea UD PRN N/A 07/07/16 20:00 08/06/16 19:59 Heparin Sodium (Porcine) (Heparin Sq 5000 Unit/0.5ml) 5,000 unit Q8 SQ 07/07/16 22:00 08/06/16 21:59 07/10/16 06:04 5,000 UNIT Acetaminophen (Tylenol Tab) 650 mg Q4H PRN PO 07/07/16 20:00 08/06/16 19:59 07/09/16 20:43 650 MG Al Hydrox/Mg Hydrox/Simethicone (Maalox Max Susp) 15 ml Q4H PRN PO 07/07/16 20:00 08/06/16 19:59 Ondansetron HCl (Zofran Inj) 4 mg Q6H PRN IV 07/07/16 20:00 08/06/16 19:59 Nitroglycerin (Nitrostat Tab) 0.4 mg UD PRN SL 07/07/16 20:00 08/06/16 19:59 Sertraline HCl (Zoloft Tab) 25 mg DAILY PO 07/08/16 09:00 08/07/16 08:59 07/09/16 07:42 25 MG Miscellaneous Information (Order Awaiting Action) 1 ea QS N/A 07/08/16 00:00 08/07/16 00:00 Clopidogrel Bisulfate (plAVix TAB) 75 mg QAM PO 07/09/16 09:00 08/08/16 08:59 07/09/16 07:42 75 MG Atorvastatin Calcium (Lipitor Tab) 20 mg HS PO 07/08/16 21:00 08/07/16 20:59 07/09/16 20:43 20 MG Labetalol HCl (Normodyne IV) 20 mg Q4 PRN IV 07/09/16 12:00 08/08/16 11:59 07/10/16 04:27 20 MG Impression 1. Suspect acute left hemispheric stroke, likely small vessel ischemic disease , secondary to her history of hypertension. I was concerned that this was a "stuttering" type stroke in a antiplatelet medication naive patient (prior to hospitalization). These types of strokes typically required a little more aggressive treatment, and she had a clopidogrel load of 300 mg 1-. Currently she has a slight right-sided facial droop and improved weakness and clumsiness/drift in the right upper extremity. NIH stroke scale equals 1. 2. Hypertension Although improved, she still has some elevated readings. 3. History of dyslipidemia on simvastatin with an excellent fasting total cholesterol level. 4. History of breast cancer post surgery and radiation, now on hormonal therapy 5. History of heart mesh for atrial septal defect 20 years ago. Apparently this is not metallic. The issue is sternal wires from the procedure. 6. Echocardiogram shows possible right to left atrial shunt with Valsalva. The procedure she had 20 years ago was supposed to close a shunt. Plan 1. I realize that the patient is reluctant to undergo an MRI. I believe that it is safe and that sternal wires from a procedure 20 years ago would not "move" with an MRI as they are surrounded by scar tissue. 2. Continue clopidogrel 75 mg daily 3. Continue 81 mg aspirin tablet daily 4. Continue PT, OT, and speech consults. Consider transfer to rehabilitation hospital. 5. Treat hypertension as you're doing, keeping mean arterial pressure around 100 6. I do not see a need for anticoagulation at this time from a neurologic standpoint. I do note the admission observation of a left sided facial weakness but since I first saw her there is never been any left-sided issue or change from her right-sided symptoms.
[2016-07-10] MEDS: SERTRALINE HCL 50 MG TAB PO SCH (07:54)
[2016-07-10] MEDS: ASPIRIN 81 MG ECTAB PO SCH (07:54)
[2016-07-10] MEDS: CLOPIDOGREL BISULFATE 75 MG TAB PO SCH (07:54)
--- NOTE | 2016-07-10 10:32 | Family Medicine Progress Note ---
Progress Note Date of Service Jul 10, 2016.
--- NOTE | 2016-07-10 11:08 | Cardiology Follow-Up ---
Subjective Subjective Date of Service: Jul 10, 2016. Pt evaluation today including: conversation w/ patient, physical exam, chart review, lab review, review of studies, review of inpatient medication list Additional Details: Feeling well. No chest pain, shortness of breath or headaches overnight. Up walking halls with PT. She has some concern regarding residual writing deficits. Tele reviewed - no events overnight. Problem List Medical Problems: (1) TIA (transient ischemic attack) Status: Acute Review of Systems Constitutional: No fatigue, No fever, No weakness Respiratory: No cough, No shortness of breath Cardiac: No chest pain, No orthopnea, No palpitations Abdomen: No constipation, No nausea, No pain Female : No dysuria Neurologic: + balance problems, + numbness/tingling Heme: No abnormal bleeding/bruising Objective Vital Signs Last Vital Signs Documentation Date Time Temp Pulse Resp B/P Pulse Ox O2 Delivery O2 Flow Rate FiO2 07/10/16 07:52 36.9 64 18 151/84 96 Room Air Physical Exam: General Appearance: WD/WN, no apparent distress Neck: supple Respiratory/Chest: lungs clear, normal breath sounds, no respiratory distress Cardiovascular: regular rate, rhythm, no edema, no murmur Abdomen: normal bowel sounds, non tender, soft Extremities: no pedal edema, no calf tenderness Neurologic/Psychiatric: alert, normal mood/affect, oriented x 3 Skin: normal color, warm/dry, no rash Assessment and Plan 1. Acute left hemispheric CVA - per neurology small vessel disease 2. 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 Hypertension Stable from a cardiac standpoint Now on plavix for CVA for presumed small vessel disease. Ok with MRI if necessary As additional cardiac imaging unlikely to change current management, continued congenital heart disease follow-up as an outpatient. Dr. Post to resume cardiac care tomorrow Continued [facility] stay due to: multiple IV medications needed, home environment unsafe for pt Medications: Current Inpatient Medications Medications (Trade) Dose Ordered Sig/Sarika Route Start Time Stop Time Status Last Admin Dose Admin Ioversol (Optiray 320) 100 ml UD PRN IV 07/07/16 20:00 07/11/16 19:59 Aspirin (Ecotrin Tab) 81 mg QAM PO 07/08/16 09:00 08/07/16 08:59 07/10/16 07:54 81 MG Miscellaneous Information (Pharmacist Discharge Med Rec Consult) 1 ea UD PRN N/A 07/07/16 20:00 08/06/16 19:59 Heparin Sodium (Porcine) (Heparin Sq 5000 Unit/0.5ml) 5,000 unit Q8 SQ 07/07/16 22:00 08/06/16 21:59 07/10/16 06:04 5,000 UNIT Acetaminophen (Tylenol Tab) 650 mg Q4H PRN PO 07/07/16 20:00 08/06/16 19:59 07/09/16 20:43 650 MG Al Hydrox/Mg Hydrox/Simethicone (Maalox Max Susp) 15 ml Q4H PRN PO 07/07/16 20:00 08/06/16 19:59 Ondansetron HCl (Zofran Inj) 4 mg Q6H PRN IV 07/07/16 20:00 08/06/16 19:59 Nitroglycerin (Nitrostat Tab) 0.4 mg UD PRN SL 07/07/16 20:00 08/06/16 19:59 Sertraline HCl (Zoloft Tab) 25 mg DAILY PO 07/08/16 09:00 08/07/16 08:59 07/10/16 07:54 25 MG Miscellaneous Information (Order Awaiting Action) 1 ea QS N/A 07/08/16 00:00 08/07/16 00:00 Clopidogrel Bisulfate (plAVix TAB) 75 mg QAM PO 07/09/16 09:00 08/08/16 08:59 07/10/16 07:54 75 MG Atorvastatin Calcium (Lipitor Tab) 20 mg HS PO 07/08/16 21:00 08/07/16 20:59 07/09/16 20:43 20 MG Labetalol HCl (Normodyne IV) 20 mg Q4 PRN IV 07/09/16 12:00 08/08/16 11:59 07/10/16 04:27 20 MG Lab Results: 07/10/16 05:20 Red Blood Count 3.98, Mean Corpuscular Volume 94.0, Mean Corpuscular Hemoglobin 31.7, Mean Corpuscular Hemoglobin Concent 33.7, Mean Platelet Volume 10.3, Neutrophils (%) (Auto) 65.6, Lymphocytes (%) (Auto) 21.5, Monocytes (%) (Auto) 8.9, Eosinophils (%) (Auto) 3.2, Basophils (%) (Auto) 0.5, Neutrophils # (Auto) 3.89, Lymphocytes # (Auto) 1.28, Monocytes # (Auto) 0.53, Eosinophils # (Auto) 0.19, Basophils # (Auto) 0.03 07/10/16 05:20 Test 07/10/16 05:20 White Blood Count 5.94 K/uL (4.8-10.8) Red Blood Count 3.98 M/uL (4.2-5.4) Hemoglobin 12.6 g/dL (12.0-16.0) Hematocrit 37.4 % (37-47) Mean Corpuscular Volume 94.0 fL (80-100) Mean Corpuscular Hemoglobin 31.7 pg (25-34) Mean Corpuscular Hemoglobin Concent 33.7 g/dl (32-36) Platelet Count 163 K/uL (130-400) Mean Platelet Volume 10.3 fL (7.4-10.4) Neutrophils (%) (Auto) 65.6 % Lymphocytes (%) (Auto) 21.5 % Monocytes (%) (Auto) 8.9 % Eosinophils (%) (Auto) 3.2 % Basophils (%) (Auto) 0.5 % Neutrophils # (Auto) 3.89 K/uL (1.4-6.5) Lymphocytes # (Auto) 1.28 K/uL (1.2-3.4) Monocytes # (Auto) 0.53 K/uL (0.11-0.59) Eosinophils # (Auto) 0.19 K/uL (0-0.5) Basophils # (Auto) 0.03 K/uL (0-0.2) RDW Standard Deviation 46.6 fL (36.4-46.3) RDW Coefficient of Variation 13.7 % (11.5-14.5) Immature Granulocyte % (Auto) 0.3 % Immature Granulocyte # (Auto) 0.02 K/uL (0.00-0.02) Anion Gap 10.0 mmol/L (3-11) Est Creatinine Clear Calc Drug Dose 69.8 ml/min Estimated GFR () 88.8 Estimated GFR (Non- 76.6 BUN/Creatinine Ratio 17.9 (10-20) Calcium Level 8.8 mg/dl (8.5-10.1)
[2016-07-10] MEDS ORDERED: CARVEDILOL 6.25 MG TAB PO ONE (11:21)
--- NOTE | 2016-07-10 14:30 | Family Medicine Progress Note ---
Progress Note Date of Service Jul 10, 2016. Subjective Pt evaluation today including: conversation w/ patient, physical exam, chart review, lab review Patient sitting comfortably in chair. Says she is eating well but sleeping is disturbed secondary to neck pain from cervical disc prolapse. She only takes tylenol for it and is declining any more analgesia. She denies onset of new symptoms. She acknowledges she still has mild right sided facial droop and occasional slurring of speech. She feels the dexterity of her right hand has increased further today as she found it easier to bring food to her mouth in during breakfast. She denies one-sided paralysis or weakness of any of her limbs , she is not having difficulty swallowing or word finding. No current pain symptoms. Denies lightheadedness/dizziness, no numbness or tingling in her extremities. When asked about ambulation, patient seems less aware that her balance is poor. Nurse testing her cognitive abilities noticed that her symptoms worsen with fatigue - increased dysarthria, clumsiness, and sliding of right foot on ambulation etc. Constitutional: No chills, No fever Eyes: No diplopia Respiratory: No cough, No shortness of breath Cardiovascular: No chest pain, No edema, No palpitations Abdomen: No constipation, No diarrhea, No nausea, No pain, No vomiting Musculoskeletal: + joint pain (neck) Female : No dysuria Objective Vital Signs Date Time Temp Pulse Resp B/P Pulse Ox O2 Delivery O2 Flow Rate FiO2 07/10/16 11:22 36.9 64 18 152/72 96 Room Air 07/10/16 08:00 Room Air 07/10/16 07:52 36.9 64 18 151/84 96 Room Air 07/10/16 04:30 138/72 07/10/16 04:00 Room Air 07/10/16 04:00 36.8 59 16 173/86 93 Room Air 07/10/16 00:29 36.7 61 20 160/81 96 Room Air 07/09/16 23:59 Room Air 07/09/16 20:40 36.8 62 18 153/81 96 Room Air 07/09/16 20:00 Room Air 07/09/16 16:40 36.8 60 22 177/82 98 Room Air Physical Exam General Appearance: WD/WN, no apparent distress Neck: supple, no adenopathy Respiratory/Chest: lungs clear, normal breath sounds, no respiratory distress, no accessory muscle use Cardiovascular: regular rate, rhythm, no edema, no murmur Abdomen: normal bowel sounds, non tender, soft Extremities: no pedal edema, no calf tenderness Neurologic/Psychiatric: [employer] II-XII nml as tested, alert, normal mood/affect, oriented x 3, + facial droop, + pertinent finding (numbers slightly off in placement in clock drawing test, but acceptable. Improvement in writing her name.) Skin: normal color, warm/dry, no rash Laboratory Results Results Past 24 Hours Test 07/10/16 05:20 Range/Units White Blood Count 5.94 4.8-10.8 K/uL Red Blood Count 3.98 4.2-5.4 M/uL Hemoglobin 12.6 12.0-16.0 g/dL Hematocrit 37.4 37-47 % Mean Corpuscular Volume 94.0 80-100 fL Mean Corpuscular Hemoglobin 31.7 25-34 pg Mean Corpuscular Hemoglobin Concent 33.7 32-36 g/dl Platelet Count 163 130-400 K/uL Mean Platelet Volume 10.3 7.4-10.4 fL Neutrophils (%) (Auto) 65.6 % Lymphocytes (%) (Auto) 21.5 % Monocytes (%) (Auto) 8.9 % Eosinophils (%) (Auto) 3.2 % Basophils (%) (Auto) 0.5 % Neutrophils # (Auto) 3.89 1.4-6.5 K/uL Lymphocytes # (Auto) 1.28 1.2-3.4 K/uL Monocytes # (Auto) 0.53 0.11-0.59 K/uL Eosinophils # (Auto) 0.19 0-0.5 K/uL Basophils # (Auto) 0.03 0-0.2 K/uL RDW Standard Deviation 46.6 36.4-46.3 fL RDW Coefficient of Variation 13.7 11.5-14.5 % Immature Granulocyte % (Auto) 0.3 % Immature Granulocyte # (Auto) 0.02 0.00-0.02 K/uL Sodium Level 142 136-145 mmol/L Potassium Level 3.9 3.5-5.1 mmol/L Chloride Level 109 98-107 mmol/L Carbon Dioxide Level 23 21-32 mmol/L Anion Gap 10.0 3-11 mmol/L Blood Urea Nitrogen 14 7-18 mg/dl Creatinine 0.77 0.60-1.20 mg/dl Est Creatinine Clear Calc Drug Dose 69.8 ml/min Estimated GFR () 88.8 Estimated GFR (Non- 76.6 BUN/Creatinine Ratio 17.9 10-20 Random Glucose 118 70-99 mg/dl Calcium Level 8.8 8.5-10.1 mg/dl Assessment and Plan 75 year old female with previous breast cancer, hyperlipidemia, hypertension, & mild depression referred by PCP for 3 day history of slurred speech, facial droop and difficulties with balance with fall thereafter. CVA - CT head without contrast:No acute intracranial findings - CT neck angio with contrast: Atheromatous changes at the level of the right carotid bulb with a small ulcerated plaque involving the posterior wall the proximal right internal carotid artery. No evidence of hemodynamically significant right or left internal carotid artery stenosis. No evidence of vertebral or basilar artery stenosis. No evidence of dissection - Echo performed to rule out cardiac cause of stroke: Normal left ventricle size , wall thickness, wall motion, and systolic function. LVEF 65%. Right ventricle is normal size. Mildly reduced RV function with TAPSE 1.2 cm. Intraatrial septum is hypermobile. With a difficult bubble study to interpret there appears to be a right to left shunt with valsalva. - CVA likely small vessel related - Neurology consulted. Appreciative of Dr. Baker's recommendations: Plavix loading dose of 300mg, then continue then with 81 mg aspirin tablet daily and 75 mg Plavix daily - Brain MRI also recommended by neurology, however patient patient believes MRI is contraindicated for her. Discussion with her hospice music therapy, Dr Post and her PCP, Dr. Toussaint was ineffective in determining source of contraindication based on past history and surgical post op notes. However, patient is reluctant to undergo an MRI - Repeat CT shows no acute intracranial changes - Given shunt through septum seen on echo, concern for paradoxical emboli. 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 Post be at either [facility] or if determined to be compatible by cardiac MRI. No further testing necessary while inpatient. - On discharge continue both Aspirin 81mg daily and Plavix 75mg daily for one month. Then discontinue aspirin and continue Plavix 75mg daily for life. Weakness - PT and OT consults. - OT suggests: patient is not safe to return home at her current level of function. At this point, acute in patient rehabilitation would be best for patient - PT working with patient daily Slurred speech - Dysarthria improved - Speech evaluation consulted. Recommend: Continue with a regular diet, AHA. Would recommend outpatient speech therapy upon discharge should patient's facial droop/weakness and dysarthria not resolve. HTN - Aim to keeping mean arterial pressure around 100, as per neurology - Hold HCTZ for now - IV labetalol 10mg PRN MAP >110 did not adequately control blood pressure - Titrated to IV labetalol 20mg PRN MAP >110, has led to better BP control - Added PO carvedilol 6.25mg BID, with IV labetalol on file as back up if MAP > 110 CAD - On admission, patient's simvastatin 20mg changed to atorvastatin 40mg - Lipid panel shows very good numbers - Patient not a suitable candidate for high dose statin given some literature suggesting increased risk of ICH with marked lipid suppression in older individuals with normal lipid profile - Reduce atorvastatin from 40mg to 20mg Breast Ca - Continue home Aromasin and Exemestane DVT prophylaxis - Heparin 5000units SQ q8h Dispo - Code status: full code - Telemetry - Aiming for transfer to [facility] in [place] for rehabilitation when safe for hospital discharge Resident Physician Supervision Note: I interviewed and examined the patient. Discussed with Dr. Nixon and agree with findings and plan as documented in the note. Any exceptions or clarifications are listed here: None Documented By: Brandt Don feeling better, thinks she's able to move arms more, less weakness, speech improved. not at baseline but she notes clearly she's doing better. d/w neurology vitals noted, BP improving. nad. sl R arm clumsiness, R face droop although does seem less, speech still thick and sl slurred but definitely more clear CVA - neg CT head and no signs of PE making embolic from ASD being highly unlikely (combined with TTE being questionable on R-L shunt as well) -- all plead heavily against embolic making anticoagulation more risk than benefit, and making [facility] right now more risk than benefit. continue plavix, continue to titrate BP control (switch from IV labetalol to PO carvedilol). for transfer to rehab once oral BP control affected (probably HSR on 07/11) DVT proph - heparin SQ Continued [facility] stay due to: multiple IV medications needed, home environment unsafe for pt
[2016-07-10] MEDS: ATORVASTATIN 20 MG TAB PO SCH (20:46)
[2016-07-10] MEDS: CARVEDILOL 6.25 MG TAB PO SCH (20:47)
[2016-07-10] MEDS: ACETAMINOPHEN 325 MG TAB PO PRN (20:47)
[2016-07-11] MEDS: LABETALOL HCL IV 5 MG/ML 20ML IV PRN (00:04)
[2016-07-11 00:30] VITALS: BP 154/65
[2016-07-11 04:20] VITALS: BP 149/74; PULSE 56; TEMP 36.9; O2SAT 96
[2016-07-11] MEDS: HEPARIN SOD 5000 UNIT/0.5 ML CARP SQ SCH ×2 (05:56→15:20)
[2016-07-11 07:58] VITALS: BP 169/89; PULSE 58; TEMP 36.9; O2SAT 95
[2016-07-11] MEDS: CLOPIDOGREL BISULFATE 75 MG TAB PO SCH (08:15)
[2016-07-11] MEDS: CARVEDILOL 6.25 MG TAB PO SCH (08:15)
[2016-07-11] MEDS: ASPIRIN 81 MG ECTAB PO SCH (08:15)
[2016-07-11] MEDS: SERTRALINE HCL 50 MG TAB PO SCH (08:16)
[2016-07-11] MEDS ORDERED: EXEMESTANE 25 MG TAB PO SCH (09:00)
[2016-07-11 12:24] VITALS: BP 186/79; PULSE 61; TEMP 36.7; O2SAT 94
[2016-07-11] MEDS ORDERED: PLV75 PO (13:51)
[2016-07-11] MEDS ORDERED: ASPEC81 PO (13:51)
--- NOTE | 2016-07-11 13:56 | Discharge Instructions ---
Discharge Instructions Admission Reason for Admission: Slurred Speech, Tia Discharge Discharge Diagnosis / Problem: Transient Ischemic attack Discharge Goals Goal(s): Decrease discomfort, Improve function, Increase independence, Therapeutic intervention Activity Recommendations Activity Level: Assistance Required Therapies: Physical Therapy, Occupational Therapy, Speech Therapy . Additional Information Patient informed of condition: Yes Advance Directives: Yes DNR: No Level of Care: Acute Rehab Communicable Disease: No Prognosis: Improving Instructions / Follow-Up Instructions / Follow-Up Patient was admitted to the hospital for right sided facial droop and slurred speech, patient had stroke. CT neck angio with contrast showed atheromatous changes at the level of the right carotid bulb with a small ulcerated plaque involving the posterior wall the proximal right internal carotid artery. No evidence of hemodynamically significant right or left internal carotid artery stenosis. No evidence of vertebral or basilar artery stenosis. No evidence of dissection. Neuro was consulted and patient was started on aspirin 81mg and Plavix 75mg. Patient was also started on Coreg 6.25 and labetalol 20mg prn to keep MAP >100. Patient symptoms started to improved. It was decided to send her on Rehab before sending home. Please follow the following instructions: CVA - Patient will be on aspirin 81mg and Plavix 75mg for 1 month. STOP Aspirin after 1 month. Please continue taking Plavix for rest of her life. Slurred speech - Recommended to continue with speech therapy Weakness - Continue with OT/PT therapy Current Hospital Diet Patient's current hospital diet: AHA Diet (Heart Healthy) Discharge Diet Recommended Diet: AHA Diet (Heart Healthy) Pending Studies Studies pending at discharge: no Laboratory Results Hemoglobin A1c Test 07/07/16 21:23 Range/Units Estimated Average Glucose 148 mg/dl Hemoglobin A1c 6.8 H 4.5-5.6 % Lipid Panel Test 07/08/16 05:46 Range/Units Triglycerides Level 128 0-150 mg/dl Cholesterol Level 158 0-200 mg/dl HDL Cholesterol 54 mg/dl Cholesterol/HDL Ratio 2.9 LDL Cholesterol, Calculated 78 mg/dl Medical Emergencies . Who to Call and When: Medical Emergencies: If at any time you feel your situation is an emergency, please call 911 immediately. . Non-Emergent Contact Non-Emergency issues call your: Primary Care Provider . . "Provider Documentation" section prepared by Elaina Martinez. Core Measure Problem Core Measures: Stroke Stroke Core Measures Reason no t-PA for Stroke: Treatment not indicated Reason no antithrom by day 2: Treatment not indicated Reason no antithrom at D/C: Treatment not indicated Reason no statin at D/C: Treatment provided - N/A Reason no anticoag w/a fib: Treatment provided - N/A
[2016-07-11 14:37] VITALS: BP 186/79; PULSE 61; TEMP 36.7; O2SAT 94
--- NOTE | 2016-07-11 19:02 | Discharge Summary ---
Discharge Summary Admission Date: Jul 07, 2016 at 20:00 Discharge Date: Jul 11, 2016 Discharge Disposition: custodial facility Principal Diagnosis: CVA Immunizations: Have You Had Influenza Vaccine: No Influenza Vaccine Date: Mar 21, 2012 History of Tetanus Vaccine?: Unknown History of Pneumococcal: Unknown History of Hepatitis B Vaccine: No (Elaina Martinez MD) Medication Reconciliation New Medications: Aspirin (Aspirin EC Low Dose) 81 Mg Ectab 81 MG PO QAM for 30 Days, #30 STOP after 30 days Clopidogrel Bisulfate (Clopidogrel) 75 Mg Tab 75 MG PO QAM for 30 Days, #30 TAB Continue taking for rest of your life Continued Medications: Calcium Carbonate-Vitamin D (Caltrate 600+D) 1 Chw Chw 1 TAB PO HS Exemestane (Aromasin) 25 Mg Tab 25 MG PO DAILY, TAB Hydrochlorothiazide (Hydrochlorothiazide) 25 Mg Tab 25 MG PO QAM Multiple Vitamins W/ Minerals (Centrum Silver) 1 Chw Chw 1 TABLET PO DAILY Olmesartan Medoxomil (Benicar) 40 Mg Tab 40 MG PO QAM, TAB Sertraline (Zoloft) 25 Mg Tab 25 MG PO DAILY, TAB Simvastatin (Simvastatin) 20 Mg Tab 20 MG PO HS Discharge Exam No acute overnight events. Patient states that her R sided weakness has been improving. She was able to walk around the hallway and in the room. Her speech has improved also. Denies SOB, chest pain, nausea, vomiting, abdominal pain or any other additional complaints. Review of Systems: Constitutional: No chills Respiratory: No cough, No dyspnea on exertion, No shortness of breath Cardiovascular: No chest pain Abdomen: No constipation, No diarrhea, No nausea, No pain, No vomiting Genitourinary - Female: No dysuria Neurologic: + weakness (Right sided weakness which is improving) Integumentary: No rash Physical Exam: General Appearance: no apparent distress Neck: supple, trachea midline Respiratory/Chest: chest non-tender, lungs clear, normal breath sounds, no respiratory distress Cardiovascular: regular rate, rhythm, no edema Abdomen / GI: normal bowel sounds, non tender, soft Extremities: no pedal edema, non-tender Neurologic/Psychiatric: 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 Yesterday she lost her balance and fell in the shower. She saw Dr Toussaint today who recommended she get a CT scan to evaluate for stroke. She reports her blood pressure in the office today was around 130/80. She reports she has also had a mild headache to the left frontal area as well. Upon seeing her in ED her slurred speech had resolved but she still had residual right sided facial droop. 1. CVA - CT head without contrast:No acute intracranial findings - CT neck angio with contrast: Atheromatous changes at the level of the right carotid bulb with a small ulcerated plaque involving the posterior wall the proximal right internal carotid artery. No evidence of hemodynamically significant right or left internal carotid artery stenosis. No evidence of vertebral or basilar artery stenosis. No evidence of dissection - Echo performed to rule out cardiac cause of stroke: Normal left ventricle size , wall thickness, wall motion, and systolic function. LVEF 65%. Right ventricle is normal size. Mildly reduced RV function with TAPSE 1.2 cm. Intraatrial septum is hypermobile. With a difficult bubble study to interpret there appears to be a right to left shunt with valsalva. - CVA likely small vessel related - Neurology consulted. Appreciative of Dr. Baker's recommendations: Plavix loading dose of 300mg, then continue then with 81 mg aspirin tablet daily and 75 mg Plavix daily - Brain MRI also recommended by neurology, however patient patient believes MRI is contraindicated for her. Discussion with her bank examiner, Dr Post and her PCP, Dr. Toussaint was ineffective in determining source of contraindication based on past history and surgical post op notes. However, patient is reluctant to undergo an MRI - Repeat CT shows no acute intracranial changes - Given shunt through septum seen on echo, concern for paradoxical emboli. 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 Post be at either [facility] or if determined to be compatible by cardiac MRI. No further testing necessary while inpatient. - On discharge patient continue both Aspirin 81mg daily and Plavix 75mg daily for one month. Then discontinue aspirin and continue Plavix 75mg daily for life. 2. Weakness - PT and OT consults. - OT suggests: patient is not safe to return home at her current level of function. At this point, acute in patient rehabilitation would be best for patient 3. Slurred speech - Dysarthria improved - Speech evaluation consulted. Recommend: Continue with a regular diet, AHA. - Recommend continue outpatient speech therapy upon discharge 3. HTN - Aim to keeping mean arterial pressure around 100, as per neurology - Hold HCTZ for now - IV labetalol 10mg PRN MAP >110 did not adequately control blood pressure - Titrated to IV labetalol 20mg PRN MAP >110, has led to better BP control - Added PO carvedilol 6.25mg BID, with IV labetalol on file as back up if MAP > 110 - On discharge continue home HTN medication, HCTZ 25mg 4. CAD - On admission, patient's simvastatin 20mg changed to atorvastatin 40mg - Lipid panel shows very good numbers - Patient not a suitable candidate for high dose statin given some literature suggesting increased risk of ICH with marked lipid suppression in older individuals with normal lipid profile - Reduce atorvastatin from 40mg to 20mg Breast Ca - Continue home Aromasin and Exemestane Patient was discharged to custodial facility for rehab. Total Time Spent: Greater than 30 minutes This includes examination of the patient, discharge planning, medication reconciliation, and communication with other providers. (Elaina Martinez MD) Discharge Instructions Please refer to the electronic Patient Visit Report (Discharge Instructions) for additional information. (Elaina Martinez MD) History Resident physician supervisory note: I was present during the history and physical examination w/ Dr. Martinez and agree with the documented assessment and plan as above. Any supplements or other comments are here. Significant improvement of weakness and speech symptoms since initial event. Reports no fever, CP/SOB, palpitations, vision/hearing changes, MEEKS, lightheadedness. 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
[2016-07-13 15:23] LABS: ANTITHROMBINIII ACTIVITY** 109 % activity (80-120); LUPUS ANTICOAGULANT** TC36573X Negative (Negative)
== END 2016-07-11 16:12 | DRG 65 ==
LOC: ENRESERVTM → ENRESERVDT → C.EDB 17:00 → C.2E 20:00
PROVIDERS: ADMIT Hospitalist; ATTEND Family Medicine
DX: I63.9 Cerebral infarction, unspecified (principal); G81.91 Hemiplegia, unspecified affecting right dominant side; R47.81 Slurred speech; I10 Essential (primary) hypertension; E78.00 Pure hypercholesterolemia, unspecified; F32.9 Major depressive disorder, single episode, unspecified; R29.810 Facial weakness; R47.1 Dysarthria and anarthria; I25.10 Atherosclerotic heart disease of native coronary artery without angina pectoris; I65.21 Occlusion and stenosis of right carotid artery; Z87.74 Personal history of (corrected) congenital malformations of heart and circulatory system; Z91.040 Latex allergy status; Z85.3 Personal history of malignant neoplasm of breast; I95.89 Other hypotension; Z92.3 Personal history of irradiation

== ENCOUNTER → 2017-07-12 | Outpatient (CLI) | payer OTHER, MEDICARE ==
[~2017-07-12] MED LIST changes: +ASPEC81 PO; +PLV75 PO; +SERT25TA PO; -Tylenol PO; -[UNRECOGNIZED DRUG - OTHER]
--- NOTE | 2017-07-12 12:03 | DIAGNOSTIC IMAGING REPORT ---
CHEST 2 VIEWS ROUTINE CLINICAL HISTORY: LLL PNEUMONIA,ACUTE CHEST PAIN COMPARISON STUDY: 07/07/2016 FINDINGS: There are postsurgical changes of a midline sternotomy. The heart is normal in size. There is no failure. There is no focal pulmonary consolidation. There are no pleural effusions. Surgical clips projected of the right axillary region.[ IMPRESSION: No active disease in the chest. Electronically signed by: Matteo Richards M.D. 07/12/2017 12:02 PM Dictated Date/Time: 07/12/2017 12:00 PM
== END | disposition home or self-care (01) ==
LOC: C.RAD1850 11:51
PROVIDERS: ATTEND Nurse Practitioner Family
DX: R07.9 Chest pain, unspecified (principal); J18.9 Pneumonia, unspecified organism

== ENCOUNTER 2019-08-12 12:20 | Inpatient (IN) ==
[2019-08-12] MEDS ORDERED: SODIUM CHLORIDE 0.9% 500 ML IV ONE (12:43)
[2019-08-12 12:58] LABS: Basophils # (auto) 0.03 K/uL (0-0.2); Basophils % (auto) 0.4 %; Eosinophils # (auto) 0.09 K/uL (0-0.5); Eosinophils % (auto) 1.3 %; Hematocrit (blood only) 42.5 % (37-47); Hemoglobin 14.6 g/dL (12.0-16.0); Immature Granulocytes # (auto) 0.01 K/uL (0.00-0.02); Immature Granulocytes % (auto) 0.1 %; Lymphocytes # (auto) 1.11 K/uL (1.2-3.4); Lymphocytes % (auto) 16.3 %; Mean Corpuscular Hemoglobin 32.6 pg (25-34); Mean Corpuscular Hgb Conc 34.4 g/dL (32-36); Mean Corpuscular Volume 94.9 fL (80-100); Monocytes # (auto) 0.71 K/uL (0.11-0.59); Monocytes % (auto) 10.4 %; Neutrophils # (auto) 4.88 K/uL (1.4-6.5); Neutrophils % (auto) 71.5 %; Platelet Count 202 K/uL (130-400); RDW Coefficient of Variation 13.3 % (11.5-14.5); Red Blood Count 4.48 M/uL (4.2-5.4); White Blood Count 6.83 K/uL (4.8-10.8)
[2019-08-12 13:09] LABS: Partial Thromboplastin Time 26.7 Seconds (21.0-31.0); Prothrombin Time 10.1 Seconds (9.0-12.0)
[2019-08-12] MEDS ORDERED: OPTIRAY 320 125ml IV PRN (13:12)
[2019-08-12 13:15] LABS: Alanine Aminotransferase 30 U/L (12-78); Albumin Level 3.9 gm/dl (3.4-5.0); Aspartate Aminotransferase 28 U/L (15-37); BUN Creatinine Ratio 28.2 (10-20); Blood Urea Nitrogen 25 mg/dl (7-18); Calcium 10.1 mg/dl (8.5-10.1); Carbon Dioxide 28 mmol/L (21-32); Chloride 97 mmol/L (98-107); Creatinine Clr Calc Pharmacy 55.5 ml/min; Est GFR (Non-African American) 64.7; Glucose 97 mg/dl (70-99); Magnesium 2.3 mg/dl (1.8-2.4); Potassium 3.3 mmol/L (3.5-5.1); Sodium 133 mmol/L (136-145)
--- NOTE | 2019-08-12 13:20 | CT Scan Report ---
CT head/brain wo con CLINICAL HISTORY: 78 years-old Female with Stroke evaluation . Acute strokelike symptoms. Follow-up study in a patient with intraparenchymal hematoma of the left basal ganglia TECHNIQUE: Multiple axial CT images of the head were obtained without contrast. A dose lowering tech nique was utilized adhering to the principles of ALARA. CT DOSE: 1255.13 mGy.cm COMPARISON: Head CT 08/01/2019 FINDINGS: Acute/subacute intraparenchymal hematoma centered about the left basal ganglia has slightly decreased in size from comparison now measuring 1.9 x 1.7 cm, previously 2.1 x 1.8 cm. Mildly increased surrou nding vasogenic edema with partial effacement of the adjacent left lateral ventricle. There is no mid line shift, hydrocephalus, territorial ischemia or abnormal extra-axial collection. Age-related invol utional changes with patchy white matter hypodensities suggestive of chronic microvascular ischemic d isease. Cerebral vascular calcifications are noted. The calvarium is intact. The paranasal sinuses, mastoid air cells, and middle ear cavities are clear . IMPRESSION: Slightly decreased size of the acute intraparenchymal hematoma centered within the left basal ganglia measuring up to 1.9 cm with mildly increased amount of surrounding vasogenic edema resu lting in partial effacement of the adjacent left lateral ventricle. There is no midline shift or hydr ocephalus. ACT 112: Negative or not required by law. The above report was generated using voice recognition software. It may contain grammatical, syntax o r spelling errors. Electronically signed by: Praveen Ruiz M.D. 08/12/2019 1:19 PM
--- NOTE | 2019-08-12 13:21 | XRay Report ---
XR chest 1V portable CLINICAL HISTORY: 78 years-old Female presenting with stroke sx. TECHNIQUE: Portable upright AP view of the chest was obtained. COMPARISON: 08/03/2019. FINDINGS: Median sternotomy wires and mediastinal surgical clips noted. Surgical clips also project over the pe riphery of the right lung possibly within the right axilla. Atherosclerosis of the aortic arch. Cardi ac silhouette borderline enlarged. 2. There bandlike opacities at the left lung base unchanged. No new focal opacity. No large effusion or pneumothorax. Osseous structures normal. Upper abdomen normal. IMPRESSION: 1. Chronic left basilar scarring. No convincing evidence of acute cardiopulmonary disease. ACT 112: Negative or not required by law. Electronically signed by: John Garza M.D. 08/12/2019 1:20 PM
[2019-08-12 13:26] LABS: Alkaline Phosphatase 62 U/L (45-117); Bilirubin,Total 0.6 mg/dl (0.2-1); Total Protein 7.9 gm/dl (6.4-8.2); Troponin I < 0.015 ng/ml (0-0.045)
--- NOTE | 2019-08-12 13:31 | CT Scan Report ---
CT angio neck with con CLINICAL HISTORY: 78 years-old Female with recent ICH, increased R weakness. Acute strokelike symp toms COMPARISON STUDY: CTA of the head of same day, CTA of the neck 07/07/2016 TECHNIQUE: Following the IV administration of 118 mL of Optiray 320, CT angiogram of the neck was per formed from the aortic arch to the skull base. Images are reviewed in the axial, sagittal, and soto l planes. 3-D MIPS images are created and assessed. IV contrast was administered without complication . All measurements were calculated based on NASCET criteria. A dose lowering technique was utilized adhering to the principles of ALARA. FINDINGS: Dilation of the pulmonary artery suggests pulmonary artery hypertension. Prior median sternotomy with suggestion of CABG. Extensive mixed plaque of the thoracic aorta with patency of the imaged bilatera l subclavian arteries. Study is motion degraded. Patent bilateral common carotid arteries. A small ul cerative plaque involving the posterior wall of the proximal right ICA is unchanged. Moderate mixed p laque of the bilateral carotid bulbs is noted resulting in less than 50% luminal narrowing bilaterall y. Codominant vertebral arteries. Calcified plaque at the origin of the right vertebral artery result s in approximately 50% luminal narrowing. Mild calcified plaque of the V3 and V4 segments of the righ t vertebral artery without high-grade stenosis. Patent left vertebral artery. Imaged basilar artery i s also patent. No pneumothorax. The lung apices are generally clear. Soft tissues are unremarkable. Subcentimeter bi lateral hypodense thyroid nodules are likely benign. Patent airway. Multilevel degenerative changes o f the spine. IMPRESSION: 1. Moderate mixed plaque of the bilateral carotid bulbs results in less than 50% luminal narrowing bi laterally. 2. Small ulcerated plaque is again noted involving the posterior wall of the proximal right internal carotid artery, unchanged from the 2017 exam. 3. Calcified plaque at the origin of the right vertebral artery results in 50% luminal narrowing. ACT 112: Negative or not required by law. The above report was generated using voice recognition software. It may contain grammatical, syntax o r spelling errors. Electronically signed by: Praveen Ruiz M.D. 08/12/2019 1:30 PM
[2019-08-12] MEDS ORDERED: DEXAMETHASONE SOD PHOSPHATE 10 MG in SYRINGE 0 ML IV STA (13:33)
--- NOTE | 2019-08-12 13:33 | CT Scan Report ---
CT ANGIOGRAM OF THE BRAIN CLINICAL HISTORY: Right-sided weakness. Intracranial hemorrhage. COMPARISON STUDY: CT of the brain dated 08/12/2019. CT angiogram of the brain dated 07/07/2016. TECHNIQUE: Following the IV administration of 118 cc of Optiray 320, CT angiogram of the brain was pe rformed from the skull base to the vertex. Images are reviewed in the axial, sagittal, and coronal pl anes. 3-D MIPS images are created and assessed. IV contrast was administered without complication. A dose lowering technique was utilized adhering to the principles of ALARA. FINDINGS: Brain parenchyma: A 1.7 cm hemorrhage is again seen in the left basal ganglia with surrounding edema. There is no midline shift or evidence of acute territorial ischemia by CT criteria. No additional fo ci of hemorrhage are identified. There is no evidence of enhancing mass lesion on the angiogram phase images. No extra-axial fluid collection is seen. Nielsen-white matter differentiation is preserved. Ventricles, sulci, and cisterns: There is mild effacement of the left lateral ventricle. Otherwise no rmal in configuration. CT angiogram of the brain: There is atherosclerotic calcification of the cavernous carotid and verteb ral arteries. The internal carotid arteries are widely patent, as are the anterior and middle cerebra l arteries. The right A1 segment is diminutive. The vertebrobasilar system and posterior cerebral art eries are widely patent. The vertebral arteries are codominant. There is no aneurysm, high-grade sten osis, or focal vessel cutoff identified throughout the intracranial circulation. Dural sinuses: Clear as visualized. Orbits: The bony orbits are intact. The orbital contents are normal as visualized. Sinuses and mastoids: The visualized paranasal sinuses are clear. The mastoid air cells are well pneu matized. Calvarium: Unremarkable. IMPRESSION: 1. A 1.7 cm hemorrhage is again seen in the left basal ganglia with surrounding edema. 2. No additional foci of hemorrhage are identified and there is no evidence of acute territorial isch emia by CT criteria on this angiographic phase examination. 3. Unremarkable CT angiogram of the brain. ACT 112: Negative or not required by law. Electronically signed by: Ryan Rendon M.D. 08/12/2019 1:32 PM
[2019-08-12] MEDS ORDERED: DEXAMETHASONE **PF** INJ 10 MG/ML VIAL ONE (13:39)
[2019-08-12] MEDS ORDERED: LABETALOL HCL IV 5 MG/ML 20ML IV STA (16:22)
--- NOTE | 2019-08-12 18:51 | Emergency Department Note ---
Entered by Robby Gonzalez acting as a scribe for Reilly Nicolas MD History of Present Illness General Chief complaint: Stroke/CVA Symptoms Stated complaint: STROKE EVAL Time Seen by Provider: 08/12/19 12:33 Source: patient and family History of Present Illness Provider complaint: weakness Onset (ago): day(s) 1 Location: upper extremity, lower extremity and right Radiation: non-radiation Pain Consistency: + constant Quality: + other (weakness) Relieved By: + none Associated symptoms: + denies other symptoms The patient is a 78 y/o female who presents to the emergency department for evaluation of constant worsening weakness of the right side that began last night. The patients family notes that the patient had a bleed in brain on the Aug 07 with right sided weakness in the arm and leg. The patient sates that today at therapy they felt the weakness was worse. The patient notes at dinner time she began feeling worse but was fine prior to 4pm on Monday. She reports t hat when the bleed began she had weakness like this, since then she was getting better but today regressed back to how she felt with the original bleed. The patient states that she is unable to support herself due to the weakness. The family notes that the patients speech changed on the when she had the stroke but they have not noticed a change since then. The patient denies a fall, recent head injury, and any other symptoms. Home Medications Home Medications Medication Instructions Recorded Confirmed Type atorvastatin 20 mg PO HS 08/03/19 08/12/19 History calcium carbonate-vitamin D3 1 tab PO BID 08/03/19 08/12/19 History [Calcium 500 With D] hydrochlorothiazide 25 mg PO Q12 08/03/19 08/12/19 History latanoprost 1 drp OPR HS 08/03/19 08/12/19 History [id number]-[id number]-lutein 1 tab PO QAM 08/03/19 08/12/19 History [Centrum Silver Women] Ocular Lubricant 1 drp OPB QID 08/12/19 08/12/19 History acetaminophen [Tylenol] 325 mg PO Q4H PRN 08/12/19 08/12/19 History docusate sodium [Colace] 100 mg PO BID 08/12/19 08/12/19 History enoxaparin [Lovenox] 30 mg SUBCUT Q12H 08/12/19 08/12/19 History famotidine 20 mg PO Q12 08/12/19 08/12/19 History lidocaine [Lidoderm] 1 patch TOPICAL QAM 08/12/19 08/12/19 History losartan 100 mg PO HS 08/12/19 08/12/19 History nitroglycerin [Nitrostat] 0.4 mg SUBLINGUAL UD 08/12/19 08/12/19 History oseltamivir [Tamiflu] 75 mg PO QDD 08/12/19 08/12/19 History polyethylene glycol 3350 [Miralax] 17 g PO QDL 08/12/19 08/12/19 History sennosides-docusate sodium 1 tab-cap PO QDL 08/12/19 08/12/19 History [Senokot-S] Allergies Allergy/AdvReac Type Severity Reaction Status Date / Time latex Allergy Intermediate RASH Verified 08/12/19 14:45 No Known Drug Allergies Allergy Mild none Unverified 08/12/19 14:45 Past Med/Surg History Medical History Slurred speech Stroke Surgical History History of open heart surgery Family History Other A-fib Stroke Social History Preferred Language: [place] Communication Ability: Effective [place] Required: No Beliefs That Will Affect Care: None Current Living Situation: Alone Other Information That Helps Us Care for You: No Feels Safe at Home: Yes Safety Concerns: Feels Safe At This Time Smoking Status: Never smoker Hx Alcohol Use: No Hx Substance Use: No Review of Systems See HPI for pertinent positives & negatives. and A total of 10 systems reviewed and were otherwise negative Physical Exam Vital Signs Vital Signs - 24 hr 08/12/19 12:28 08/12/19 12:37 08/12/19 13:10 Temperature 36.8 C Temperature Source Oral Pulse Rate 80 70 81 Pulse Rate from SpO2 Sensor 69 77 Pulse Rhythm Regular Pulse Strength Normal Respiratory Rate 12 13 18 Respiratory Effort / Characteristics Non-Labored Spontaneous Respiratory Depth Normal Respiratory Pattern Regular Blood Pressure 135/74 135/74 151/72 H Blood Pressure Mean 86 94 88 Blood Pressure Position Lying Pulse Oximetry 98 98 99 Oxygen Delivery Method Room Air Sepsis Recent Fever Within 48 Hours No Sepsis New/Unexplained Change in Mental Status No Sepsis Action Taken by Nursing No Action Required 08/12/19 13:30 08/12/19 14:01 08/12/19 14:30 Temperature Temperature Source Pulse Rate 72 68 92 H Pulse Rate from SpO2 Sensor 74 Pulse Rhythm Pulse Strength Respiratory Rate 15 16 14 Respiratory Effort / Characteristics Respiratory Depth Respiratory Pattern Blood Pressure 150/82 H 177/75 H 190/85 H Blood Pressure Mean 129 88 120 Blood Pressure Position Pulse Oximetry 98 98 98 Oxygen Delivery Method Room Air Sepsis Recent Fever Within 48 Hours Sepsis New/Unexplained Change in Mental Status Sepsis Action Taken by Nursing 08/12/19 14:51 08/12/19 14:52 08/12/19 15:00 Temperature Temperature Source Pulse Rate 75 76 81 Pulse Rate from SpO2 Sensor 78 77 76 Pulse Rhythm Pulse Strength Respiratory Rate 17 16 18 Respiratory Effort / Characteristics Respiratory Depth Respiratory Pattern Blood Pressure 182/88 H 161/77 H Blood Pressure Mean 106 96 Blood Pressure Position Pulse Oximetry 96 98 99 Oxygen Delivery Method Room Air Sepsis Recent Fever Within 48 Hours Sepsis New/Unexplained Change in Mental Status Sepsis Action Taken by Nursing 08/12/19 15:30 08/12/19 16:00 08/12/19 16:30 Temperature Temperature Source Pulse Rate 78 Pulse Rate from SpO2 Sensor 73 Pulse Rhythm Pulse Strength Respiratory Rate 13 Respiratory Effort / Characteristics Respiratory Depth Respiratory Pattern Blood Pressure 152/88 H 156/74 H 146/88 H Blood Pressure Mean 117 110 103 Blood Pressure Position Pulse Oximetry 95 Oxygen Delivery Method Sepsis Recent Fever Within 48 Hours Sepsis New/Unexplained Change in Mental Status Sepsis Action Taken by Nursing 08/12/19 17:01 Temperature Temperature Source Pulse Rate Pulse Rate from SpO2 Sensor Pulse Rhythm Pulse Strength Respiratory Rate Respiratory Effort / Characteristics Respiratory Depth Respiratory Pattern Blood Pressure 169/80 H Blood Pressure Mean 139 Blood Pressure Position Pulse Oximetry Oxygen Delivery Method Sepsis Recent Fever Within 48 Hours Sepsis New/Unexplained Change in Mental Status Sepsis Action Taken by Nursing GENERAL: Speech is fluent. Awake, alert, well-appearing, in no distress HENT: Normocephalic, atraumatic. Oropharynx with dry mucous membranes and otherwise unremarkable. EYES: Normal conjunctiva. Sclera non-icteric. EOMI. No nystamgus. PEARRL. NECK: Supple. No nuchal rigidity. FROM. No JVD. RESPIRATORY: Clear to auscultation bilaterally CARDIAC: Regular rate, normal rhythm. Extremities warm and well perfused. Pulses equal. ABDOMEN: Soft, non-distended. No tenderness to palpation. No rebound or guarding. No masses. RECTAL: Deferred. MUSCULOSKELETAL: Chest examination reveals no tenderness. The back is symmetrical on inspection without obvious abnormality. There is no CVA tenderness to palpation. No joint edema. LOWER EXTREMITIES: Calves are equal size bilaterally and non-tender. No edema. No discoloration. NEURO: Normal sensorium. No sensory or motor deficits noted. 3/5 strength and SILT of right upper and lower extremity. 5/5 Strength of LUE and LLE. SKIN: No rash or jaundice noted. Course Course 1237: Past medical records reviewed. The patient was evaluated in room B04B. A complete history and physical exam was performed. 1419: I spoke with the patients family regarding the results. 1441: I spoke with Dr. Baker- [place] [facility] He thought the patient would benefit from an MRI to rule out a mass, but he believes that it is atypical to have worsening symptoms so late after the initial bleed. He recommends transfer. 1445: I paged for [facility]. 1458: I spoke with Dr. Granados- Neurosurgery at [place]. He agreed with MRI to rule out a mass but retraction edema after IPH would not be unusual. 1536: I checked on the patient and discussed plan MRI with her and the family but they say she was told never to have an MRI due to her remote heart surgery. 1645: Dr. Baker updated. 1651: I paged for admission [place] [facility] 1656: I spoke with [facility] [place]. She will evaluated for further management. Administered Medications Atorvastatin Calcium (Lipitor) 20 mg PO HS [facility] Stop: 09/11/19 20:59 Last Admin: 08/12/19 22:18 Dose: Not Given Documented by: [id number] Docusate Sodium (Colace) 100 mg PO BID [facility] Stop: 09/11/19 20:59 Last Admin: 08/12/19 22:17 Dose: Not Given Documented by: [id number] Famotidine (Pepcid) 20 mg PO Q12 [facility] Stop: 09/11/19 20:59 Last Admin: 08/12/19 22:18 Dose: Not Given Documented by: [id number] Hydrochlorothiazide (Hctz) 25 mg PO Q12 [facility] Stop: 09/11/19 20:59 Last Admin: 08/12/19 22:17 Dose: Not Given Documented by: [id number] Latanoprost (Xalatan Oph) 1 drops OPR HS [facility] Stop: 09/11/19 20:59 Last Admin: 08/12/19 22:34 Dose: 1 drops Documented by: [id number] Losartan Potassium (Cozaar) 100 mg PO HS [facility] Stop: 09/11/19 20:59 Last Admin: 08/12/19 22:17 Dose: Not Given Documented by: [id number] Miscellaneous (Remove Lidoderm Patch) 1 ea N/A DAILY@2100 [facility] Stop: 09/11/19 20:59 Last Admin: 08/12/19 22:18 Dose: 1 ea Documented by: [id number] Multi-Ingredient Cream (Lacri-Lube) 1 appln OP QID [facility] Stop: 09/11/19 20:59 Last Admin: 08/12/19 22:34 Dose: 1 appln Documented by: [id number] Multivitamins/Minerals (Caltrate Plus) 1 tab PO BID [facility] Stop: 09/11/19 20:59 Last Admin: 08/12/19 22:17 Dose: Not Given Documented by: [id number] Oseltamivir Phosphate (Tamiflu) 75 mg PO QDD [facility]; Protocol Stop: 08/17/19 21:29 Last Admin: 08/12/19 22:18 Dose: Not Given Documented by: [id number] Discontinued Medications Dexamethasone (Decadron) 4 mg PO BID [facility] Stop: 09/11/19 20:59 Last Admin: 08/12/19 22:17 Dose: Not Given Documented by: [id number] Dexamethasone Sodium Phosphate (Decadron Pf) Confirm Administered Dose 10 mg .ROUTE .STK-MED ONE Stop: 08/12/19 13:40 Last Admin: 08/12/19 13:48 Dose: 10 mg Documented by: [id number] Sodium Chloride (Nss) 500 mls @ 999 mls/hr IV .Q31M ONE Stop: 08/12/19 13:13 Last Infusion: 08/12/19 14:31 Dose: 0 mls/hr Documented by: [id number] Admin: 08/12/19 13:47 Dose: 999 mls/hr Documented by: [id number] Dexamethasone Sodium Phosphate (10 mg/ Syringe) 2.5 mls @ 1 mls/min IV NOW STA Stop: 08/12/19 13:35 Last Admin: 08/12/19 13:39 Dose: Not Given Documented by: [id number] Ioversol (Optiray 320 125ml) 118 ml IV ONCE PRN PRN Reason: Interaction Checking Stop: 08/16/19 13:11 Last Admin: 08/12/19 13:12 Dose: 118 ml Documented by: [id number] Labetalol HCl (Normodyne) 5 mg IV NOW STA Stop: 08/12/19 16:23 Last Admin: 08/12/19 17:05 Dose: 5 mg Documented by: [id number] Cosigned by: [id number] Medical Decision Making Differential Diagnosis Differential includes acute coronary syndrome, myocardial infarction, CVA, TIA, anemia, infection, pneumonia, UTI, pyelonephritis, poor nutrition, dehydration, electrolyte disturbance,hypoglycemia. Medical Records Attestation: I reviewed the patient's medical records. Home Medications Current Medication List: was personally reviewed by me Laboratory Data Attestation: I reviewed the patient's lab results. Result diagrams: 08/12/19 12:40 08/12/19 12:40 Lab Results 08/12/19 08/12/19 08/12/19 Range/Units 12:40 12:40 12:40 WBC 6.83 (4.8-10.8) K/uL RBC 4.48 (4.2-5.4) M/uL Hgb 14.6 (12.0-16.0) g/dL Hct 42.5 (37-47) % MCV 94.9 (80-100) fL MCH 32.6 (25-34) pg MCHC 34.4 (32-36) g/dL RDW Std Deviation 46.0 (36.4-46.3) fL RDW Coeff of Joseph 13.3 (11.5-14.5) % Plt Count 202 (130-400) K/uL MPV 11.0 H (7.4-10.4) fL Immature Gran % (Auto) 0.1 % Neut % (Auto) 71.5 % Lymph % (Auto) 16.3 % [place] % (Auto) 10.4 % Eos % (Auto) 1.3 % Baso % (Auto) 0.4 % Immature Gran # (Auto) 0.01 (0.00-0.02) K/uL Neut # (Auto) 4.88 (1.4-6.5) K/uL Lymph # (Auto) 1.11 L (1.2-3.4) K/uL [place] # (Auto) 0.71 H (0.11-0.59) K/uL Eos # (Auto) 0.09 (0-0.5) K/uL Baso # (Auto) 0.03 (0-0.2) K/uL PT 10.1 (9.0-12.0) Seconds INR 1.0 (0.9-1.1) APTT 26.7 (21.0-31.0) Seconds PTT Ratio 1.0 Sodium 133 L (136-145) mmol/L Potassium 3.3 L (3.5-5.1) mmol/L Chloride 97 L (98-107) mmol/L Carbon Dioxide 28 (21-32) mmol/L Anion Gap 8.0 (3-11) BUN 25 H (7-18) mg/dl Creatinine 0.87 (0.6-1.2) mg/dl Est Cr Clr Drug Dosing 55.5 ml/min Est GFR ( Amer) 75.0 Est GFR (Non-Af Amer) 64.7 BUN/Creatinine Ratio 28.2 H (10-20) Glucose 97 (70-99) mg/dl Calcium 10.1 (8.5-10.1) mg/dl Phosphorus 3.0 (2.5-4.9) mg/dl Magnesium 2.3 (1.8-2.4) mg/dl Total Bilirubin 0.6 (0.2-1) mg/dl AST 28 (15-37) U/L ALT 30 (12-78) U/L Alkaline Phosphatase 62 (45-117) U/L Troponin I < 0.015 (0-0.045) ng/ml Total Protein 7.9 (6.4-8.2) gm/dl Albumin 3.9 (3.4-5.0) gm/dl Globulin 4.0 (2.5-4.0) gm/dl Albumin/Globulin Ratio 1.0 (0.9-2) TSH 3.110 (0.300-4.500) uIu/ml Blood Type Antibody Screen 08/12/19 Range/Units 12:43 WBC (4.8-10.8) K/uL RBC (4.2-5.4) M/uL Hgb (12.0-16.0) g/dL Hct (37-47) % MCV (80-100) fL MCH (25-34) pg MCHC (32-36) g/dL RDW Std Deviation (36.4-46.3) fL RDW Coeff of Joseph (11.5-14.5) % Plt Count (130-400) K/uL MPV (7.4-10.4) fL Immature Gran % (Auto) % Neut % (Auto) % Lymph % (Auto) % [place] % (Auto) % Eos % (Auto) % Baso % (Auto) % Immature Gran # (Auto) (0.00-0.02) K/uL Neut # (Auto) (1.4-6.5) K/uL Lymph # (Auto) (1.2-3.4) K/uL [place] # (Auto) (0.11-0.59) K/uL Eos # (Auto) (0-0.5) K/uL Baso # (Auto) (0-0.2) K/uL PT (9.0-12.0) Seconds INR (0.9-1.1) APTT (21.0-31.0) Seconds PTT Ratio Sodium (136-145) mmol/L Potassium (3.5-5.1) mmol/L Chloride (98-107) mmol/L Carbon Dioxide (21-32) mmol/L Anion Gap (3-11) BUN (7-18) mg/dl Creatinine (0.6-1.2) mg/dl Est Cr Clr Drug Dosing ml/min Est GFR ( Amer) Est GFR (Non-Af Amer) BUN/Creatinine Ratio (10-20) Glucose (70-99) mg/dl Calcium (8.5-10.1) mg/dl Phosphorus (2.5-4.9) mg/dl Magnesium (1.8-2.4) mg/dl Total Bilirubin (0.2-1) mg/dl AST (15-37) U/L ALT (12-78) U/L Alkaline Phosphatase (45-117) U/L Troponin I (0-0.045) ng/ml Total Protein (6.4-8.2) gm/dl Albumin (3.4-5.0) gm/dl Globulin (2.5-4.0) gm/dl Albumin/Globulin Ratio (0.9-2) TSH (0.300-4.500) uIu/ml Blood Type O Positive Antibody Screen NEGATIVE Imaging Data Radiologist's Impression: Radiology results as stated below per my review and the radiologist's interpretation: XR chest 1V portable CLINICAL HISTORY: 78 years-old Female presenting with stroke sx. TECHNIQUE: Portable upright AP view of the chest was obtained. COMPARISON: 08/03/2019. FINDINGS: Median sternotomy wires and mediastinal surgical clips noted. Surgical clips also project over the periphery of the right lung possibly within the right axilla. Atherosclerosis of the aortic arch. Cardiac silhouette borderline enlarged. 2. There bandlike opacities at the left lung base unchanged. No new focal opacity. No large effusion or pneumothorax. Osseous structures normal. Upper abdomen normal. IMPRESSION: 1. Chronic left basilar scarring. No convincing evidence of acute cardiopulmonary disease. ACT 112: Negative or not required by law. Electronically signed by: John Garza M.D. 08/12/2019 1:[address] head/brain wo con CLINICAL HISTORY: 78 years-old Female with Stroke evaluation . Acute strokelike symptoms. Follow-up study in a patient with intraparenchymal hematoma of the left basal ganglia TECHNIQUE: Multiple axial CT images of the head were obtained without contrast. A dose lowering technique was utilized adhering to the principles of ALARA. CT DOSE: 1255.13 mGy.cm COMPARISON: Head CT 08/01/2019 FINDINGS: Acute/subacute intraparenchymal hematoma centered about the left basal ganglia has slightly decreased in size from comparison now measuring 1.9 x 1.7 cm, previously 2.1 x 1.8 cm. Mildly increased surrounding vasogenic edema with partial effacement of the adjacent left lateral ventricle. There is no midline shift, hydrocephalus, territorial ischemia or abnormal extra-axial collection. Age-related involutional changes with patchy white matter hypodensities suggestive of chronic microvascular ischemic disease. Cerebral vascular calcifications are noted. The calvarium is intact. The paranasal sinuses, mastoid air cells, and middle ear cavities are clear. IMPRESSION: Slightly decreased size of the acute intraparenchymal hematoma centered within the left basal ganglia measuring up to 1.9 cm with mildly increased amount of surrounding vasogenic edema resulting in partial effacement of the adjacent left lateral ventricle. There is no midline shift or hydrocephalus. ACT 112: Negative or not required by law. The above report was generated using voice recognition software. It may contain grammatical, syntax or spelling errors. Electronically signed by: Praveen Ruiz M.D. 08/12/2019 1:[address] ANGIOGRAM OF THE BRAIN CLINICAL HISTORY: Right-sided weakness. Intracranial hemorrhage. COMPARISON STUDY: CT of the brain dated 08/12/2019. CT angiogram of the brain dated 07/07/2016. TECHNIQUE: Following the IV administration of 118 cc of Optiray 320, CT angiogram of the brain was performed from the skull base to the vertex. Images are reviewed in the axial, sagittal, and coronal planes. 3-D MIPS images are created and assessed. IV contrast was administered without complication. A dose lowering technique was utilized adhering to the principles of ALARA. FINDINGS: Brain parenchyma: A 1.7 cm hemorrhage is again seen in the left basal ganglia with surrounding edema. There is no midline shift or evidence of acute territorial ischemia by CT criteria. No additional foci of hemorrhage are identified. There is no evidence of enhancing mass lesion on the angiogram phase images. No extra-axial fluid collection is seen. Nielsen-white matter differentiation is preserved. Ventricles, sulci, and cisterns: There is mild effacement of the left lateral ventricle. Otherwise normal in configuration. CT angiogram of the brain: There is atherosclerotic calcification of the cavernous carotid and vertebral arteries. The internal carotid arteries are widely patent, as are the anterior and middle cerebral arteries. The right A1 segment is diminutive. The vertebrobasilar system and posterior cerebral arteries are widely patent. The vertebral arteries are codominant. There is no aneurysm, high-grade stenosis, or focal vessel cutoff identified throughout the intracranial circulation. Dural sinuses: Clear as visualized. Orbits: The bony orbits are intact. The orbital contents are normal as visualized. Sinuses and mastoids: The visualized paranasal sinuses are clear. The mastoid air cells are well pneumatized. Calvarium: Unremarkable. IMPRESSION: 1. A 1.7 cm hemorrhage is again seen in the left basal ganglia with surrounding edema. 2. No additional foci of hemorrhage are identified and there is no evidence of acute territorial ischemia by CT criteria on this angiographic phase examination. 3. Unremarkable CT angiogram of the brain. ACT 112: Negative or not required by law. Electronically signed by: Ryan Rendon M.D. 08/12/2019 1:[address] angio neck with con CLINICAL HISTORY: 78 years-old Female with recent ICH, increased R weakness. Acute strokelike symptoms COMPARISON STUDY: CTA of the head of same day, CTA of the neck 07/07/2016 TECHNIQUE: Following the IV administration of 118 mL of Optiray 320, CT angiogram of the neck was performed from the aortic arch to the skull base. Images are reviewed in the axial, sagittal, and coronal planes. 3-D MIPS images are created and assessed. IV contrast was administered without complication. All measurements were calculated based on NASCET criteria. A dose lowering techn ique was utilized adhering to the principles of ALARA. FINDINGS: Dilation of the pulmonary artery suggests pulmonary artery hypertension. Prior median sternotomy with suggestion of CABG. Extensive mixed plaque of the thoracic aorta with patency of the imaged bilateral subclavian arteries. Study is motion degraded. Patent bilateral common carotid arteries. A small ulcerative plaque involving the posterior wall of the proximal right ICA is unchanged. Moderate mixed plaque of the bilateral carotid bulbs is noted resulting in less than 50% luminal narrowing bilaterally. Codominant vertebral arteries. Calcified plaque at the origin of the right vertebral artery results in approximately 50% luminal narrowing. Mild calcified plaque of the V3 and V4 segments of the right vertebral artery without high-grade stenosis. Patent left vertebral artery. Imaged basilar artery is also patent. No pneumothorax. The lung apices are generally clear. Soft tissues are unremarkable. Subcentimeter bilateral hypodense thyroid nodules are likely benign. Patent airway. Multilevel degenerative changes of the spine. IMPRESSION: 1. Moderate mixed plaque of the bilateral carotid bulbs results in less than 50% luminal narrowing bilaterally. 2. Small ulcerated plaque is again noted involving the posterior wall of the proximal right internal carotid artery, unchanged from the 2017 exam. 3. Calcified plaque at the origin of the right vertebral artery results in 50% luminal narrowing. ACT 112: Negative or not required by law. The above report was generated using voice recognition software. It may contain grammatical, syntax or spelling errors. Electronically signed by: Praveen Ruiz M.D. 08/12/2019 1:30 PM ECG Data Attestation: I personally reviewed and interpreted this ECG as follows: Indication: + weakness Rate (beats per minute): 80 Rhythm: + sinus rhythm ECG [place]: + Right axis deviation ECG ST segments: + Nonspecific ST abnormalities; no ST depression and no ST elevation ECG Findings: + PVCs (occational) and + Other (T wave abnormalities inferiorly, QTC 493, QRS, 106. ) Blood Pressure Blood Pressure Findings: Elevated blood pressure Blood Pressure Disposition: further management by hospitalist HIEN Narrative The patient is a pleasant 78-year-old woman with a past medical history of CVA previously on Plavix, recent left basal ganglia intraparenchymal hemorrhage with associated right-sided weakness on 08/01 transferred to [facility] who presents emergency department from [facility] acute rehab for worsening of her right sided weakness per HPI. On arrival the patient is in no acute distress, afebrile with stable vital signs. On exam patient has 3/5 strength of the right upper and right lower extremity which the patient and family report is worse from recent but they are equivocal whether this was similar to her initial presentation. EKG without overt acute ischemia. Chest x-ray negative for acute process. A CT of the head and CT of the head and neck was performed and demonstrates interval improvement in the area of hemorrhage but with increased associated vasogenic edema. CTA of the head and neck without any severe narrowing or occlusion of large vessels. There is no evidence of associated vascular malformation in the area of her prior IPH. WBC, H/H and platelets within normal limits. Chemistry without acidosis. Potassium 3.3. BUN slightly elevated at 25 BUN/creatinine > 20 consistent with the patient's clinically dry appearance. Electrolytes and LFTs otherwise unremarkable. Troponin negative/undetectable. I did review the patient's presentation and findings with not any neurology, Dr. Baker who recommended MRI to exclude underlying mass and consider transfer to [facility] given her recent admission there and worsening symptoms. I did review the case with Dr. Casiano, [facility] [place] who also agreed with excluding mass however explained that if there is no underlying mass or tumor then there is no additional treatment that they would be able to provide at [place] that we could not provide here. MRI was ordered however upon further discussion with the patient, she explains that she had surgery many years ago and was told that she should not have an MRI. The patient does have sternotomy wires as well as surgical clips, from remote (20+years ago in [place]) which likely are the reason for her being told this. Thus, MRI unlikely to be possible and was canceled. I did review this as well as update from [facility] with neurology, Dr. Baker and while there is unlikely to be any significant treatments we could provide, recommends initiating steroids given the vasogenic edema and continuing with her physical therapy. Of note, the patient did present emergency department with blood pressure initially 130s/70s however subsequently more hypertensive with systolic blood pressure in the 180s/80s likely related to some anxiety/discomfort from being in ED. She was given dose of labetalol for tighter blood pressure control. However, we agree that unlikely to be acutely contributing to the patient's symptoms. Patient and family agreeable with plan for admission. Case was discussed with [place]. Juarez, [facility] [place], who evaluate the patient for admission. Impression & Plan Right sided weakness, Vasogenic edema, History of spontaneous intraparenchymal intracranial hemorrhage, Hypertension Discharge Plan Visit Data *Final* Discharge Date/Time: 08/12/19 20:21 Chief Complaint: Stroke/CVA Symptoms Stated Complaint: STROKE EVAL ED Provider: Reilly Nicolas Discharge Problem: Right sided weakness, Vasogenic edema, History of spontaneous intraparenchymal intracranial hemorrhage, Hypertension Patient Disposition: Admitted As Inpatient Discharge Instructions Interventions: ED Discharge Assessment Last Done: 08/12/19 20:21 The scribe's documentation has been prepared under my direction and personally reviewed by me in its entirety. I confirm that the note above accurately re flects all work, treatment, procedures, and medical decision making performed by me.
[2019-08-12] MEDS ORDERED: ALUMINUM/MAGNESIUM SUSP 30 ML UDC PO PRN (20:44)
[2019-08-12] MEDS ORDERED: NITROGLYCERIN SL 0.4 MG/TAB TAB SL SCH (20:44)
[2019-08-12] MEDS ORDERED: POLYETHYLENE (MIRALAX) 17 GM PACK PO PRN (20:44)
[2019-08-12] MEDS ORDERED: PHARMACIST DISCHARGE MED REC CONSULT PRN (20:44)
[2019-08-12] MEDS ORDERED: dexAMETHasone 4 MG TAB PO SCH (21:00)
[2019-08-12] MEDS: hydroCHLOROthiazide 25 MG TAB PO SCH (22:17)
[2019-08-12] MEDS: DOCUSATE SODIUM 100 MG CAP PO SCH (22:17)
[2019-08-12] MEDS: LOSARTAN POTASSIUM 50 MG TAB PO SCH (22:17)
[2019-08-12] MEDS: CALCIUM 600MG + VIT D 400 IU TAB PO SCH (22:17)
[2019-08-12] MEDS: OSELTAMIVIR PHOSPHATE 75 MG CAP PO SCH (22:18)
[2019-08-12] MEDS: ATORVASTATIN 20 MG TAB PO SCH (22:18)
[2019-08-12] MEDS: FAMOTIDINE 20 MG TAB PO SCH (22:18)
--- NOTE | 2019-08-12 22:20 | History & Physical Report ---
Date of Service August 12, 2019 Assessment & Plan (1) Acute intra-cranial hemorrhage: Admits to inpatient at the PCU. Vital signs every 4 hours. Follow stroke without TPA pathway. Started Decadron 10 mg IV but neurosurgery did not recommend to continue.Case discussed with Dr.Kevin Casiano neurosurgeon at [facility] and he recommended to continue monitoring patient and continue Asa 81 mg and Lovenox 30 mg sc daily -for ppx. No neurosurgery is recommended at this time. And steroids will not be helpful , and therfore should be stopped per neurosurgery. Patient refused MRI of the brain, Neuro surgery at [facility] did not recommend transfer there. Recommended conservative treatment. DVT prophylaxis SCDs and teds, aspirin 81 mg PO daily and Lovenox 30 mg sc daily. Full code Present on Admission?: Yes (2) Hypertension: Continue tight control blood pressure. Continue hydrochlorothiazide 25 mg every 12 hours, losartan 100 mg p.o. nightly, Asa 81 mg PO daily. Present on Admission?: Yes (3) Right sided weakness: Physical and Occupational Therapy Present on Admission?: Yes (4) Vasogenic edema: Continue monitoring. No surgery recommended at this time.Asa 81 mg daily, Lovenox 30 mg sc daily -for ppx,Atoravastatine 20 mg PO Qhs. Present on Admission?: Yes (5) History of spontaneous intraparenchymal intracranial hemorrhage: As discussed above Present on Admission?: Yes (6) Hypercholesterolemia: Lipid panel pending. Continue atorvastatin 20 mg p.o. nightly. Present on Admission?: Yes (7) Constipation, chronic: Continue Senokot 1 tablet p.o. QDL, continue docusate sodium 100 mg p.o. twice daily. Present on Admission?: Yes History of Present Illness Chief Complaint: Right-sided weakness Primary Care Provider: [facility] The patient is a 78 years old female with past medical history of hypertension, CVA, breast cancer, AST and hyperlipidemia was brought from the [facility] detention for evaluation of worsening weakness of the right side that began last night. The patient's family noted that the patient had a bleed in the brain on the August 07 with right-sided weakness in the arm and leg. Patient was seen at [facility]. Outside record was reviewed which shows that patient was on August 08, 2019 admitted to the neuro ICU under neurosurgery service at [facility] and that she was treated for hypertensive emergency and right-sided facial droop with right-sided weakness that occurred around a.m. on August 03, 2019. Prior to arriving to [facility] patient was at outside hospital versus a CT had demonstrated a left basal ganglia hemorrhage. Patient was discharged home on aspirin 81 mg, atorvastatin 20 mg p.o. nightly, Lovenox 30 mg subcutaneously every 12 hours, she was recommended to stop clopidogrel 75 mg p.o. daily. Since then patient has been in [facility] for rehabilitation. ER physician discussed the case with Dr.Kevin Casiano neurosurgeon at [facility] and it was only recommended to continue monitoring patient and continue Asa 81 mg and Lovenox 30 mg sc daily -for ppx. No neurosurgery is recommended at this time. MRI of the brain was also recommended but patient refused stating that she had sternotomy procedure in the past and she was told that she should never have MRI done in the future. The case was also discussed with Dr. Alexis Baker neurologist who recommended MRI and steroids as well. CTA head and neck was done which shows: Acute/subacute intraparenchymal hematoma centered about the left basal ganglia there is slightly decreased in size from comparison now measuring 1.9 x 1.7 cm previously 2.1 x 1.8 cm mildly increased surrounding vasogenic edema with partial effacement of the adjacent left lateral ventricle. There is no midline shift hydrocephalus, territorial ischemia or abnormal extra-axial axial collection. Age-related involution changes with patchy white matter hypodensities suggestive of chronic microvascular ischemic disease. Cerebrovascular calcifications are noted. The calvarium is intact. The paranasal sinuses mastoid air cells and middle ear cavities are clear. Impression slightly decreased size of the acute intraparenchymal hematoma centered within the left basal ganglia measuring up to 1.9 cm with mildly increased amount of surrounding vasogenic edema resulting in partial effacement of the adjacent left lateral ventricle. There is no mildly shift of hydrocephalus. The decision was made to admit patient to the PCU on telemetry to start steroids and monitor her for possible seizure. Allergies Allergy/AdvReac Type Severity Reaction Status Date / Time latex Allergy Intermediate RASH Verified 08/12/19 14:45 No Known Drug Allergies Allergy Mild none Unverified 08/12/19 14:45 Home Medications Home Medications Medication Instructions Recorded Confirmed Type atorvastatin 20 mg PO HS 08/03/19 08/12/19 History calcium carbonate-vitamin D3 1 tab PO BID 08/03/19 08/12/19 History [Calcium 500 With D] hydrochlorothiazide 25 mg PO Q12 08/03/19 08/12/19 History latanoprost 1 drp OPR HS 08/03/19 08/12/19 History lwkutpzu-bog-ttzt-FA-lutein 1 tab PO QAM 08/03/19 08/12/19 History [Centrum Silver Women] Ocular Lubricant 1 drp OPB QID 08/12/19 08/12/19 History acetaminophen [Tylenol] 325 mg PO Q4H PRN 08/12/19 08/12/19 History docusate sodium [Colace] 100 mg PO BID 08/12/19 08/12/19 History enoxaparin [Lovenox] 30 mg SUBCUT Q12H 08/12/19 08/12/19 History famotidine 20 mg PO Q12 08/12/19 08/12/19 History lidocaine [Lidoderm] 1 patch TOPICAL QAM 08/12/19 08/12/19 History losartan 100 mg PO HS 08/12/19 08/12/19 History nitroglycerin [Nitrostat] 0.4 mg SUBLINGUAL UD 08/12/19 08/12/19 History oseltamivir [Tamiflu] 75 mg PO QDD 08/12/19 08/12/19 History polyethylene glycol 3350 [Miralax] 17 g PO QDL 08/12/19 08/12/19 History sennosides-docusate sodium 1 tab-cap PO QDL 08/12/19 08/12/19 History [Senokot-S] Past Med/Surg History Medical History Slurred speech Stroke Surgical History History of open heart surgery Family History Other A-fib Stroke Social History Preferred Language: Korean Communication Ability: Effective Cartoon Animator Required: No Beliefs That Will Affect Care: None Current Living Situation: Alone Other Information That Helps Us Care for You: No Feels Safe at Home: Yes Safety Concerns: Feels Safe At This Time Smoking Status: Never smoker Hx Alcohol Use: No Hx Substance Use: No Review of Systems Review of Systems: All systems reviewed & are unremarkable except as noted in HPI & below Physical Exam Constitutional: WD/WN, vitals as above well developed and + ill appearing Eyes: PERRL, conjunctivae normal, anicteric sclerae ENMT: external ear and nose normal, oropharynx normal Neck: trachea midline, no thyromegaly Respiratory: normal respiratory effort, lungs clear to auscultation Cardiovascular: RRR, no murmur, no edema Gastrointestinal (Abdomen): normal bowel sounds, soft, nontender, no hepatosplenomegaly Musculoskeletal: no cyanosis or clubbing, extremities motor strength 5/5 Neurologic: Alert and oriented x3, PERRLA, EOMI, Facial sensation intact in V1/V2/V3 distribution bilaterally R mild facial RUE 4/6 proximal and distally RLE 5/5 proximal and distally L UE 5/5 proximal and distally LLE 5/5 proximal and distally Psychiatric: Mood: + anxious mood Lymphatic: no cervical or axillary lymphadenopathy Results & Data Vital Signs (Past 12 Hours) Vital Signs Temp Pulse Pulse Resp BP BP Pulse Ox 08/12/19 20:30 36.6 C 73 20 165/86 H 98 08/12/19 20:02 81 20 151/77 H 96 08/12/19 17:01 169/80 H 08/12/19 16:30 146/88 H 08/12/19 16:00 156/74 H 08/12/19 15:30 78 13 152/88 H 95 08/12/19 15:00 81 18 161/77 H 99 08/12/19 14:52 76 16 98 08/12/19 14:51 75 17 182/88 H 96 08/12/19 14:30 92 H 14 190/85 H 98 08/12/19 14:01 68 16 177/75 H 98 08/12/19 13:30 72 15 150/82 H 98 08/12/19 13:10 81 18 151/72 H 99 08/12/19 12:37 36.8 C 70 13 135/74 98 08/12/19 12:28 80 12 135/74 98 Code Status & VTE Plan Code Status Full code VTE Prophylaxis Plan VTE Prophylaxis will be ordered: Yes PG Care Time/CCT Total # of Minutes Spent Total Time Spent with Patient: Total time spent is greater than 50% in coordination of care (as documented) at patient's floor/unit and/or counseling patient: Coding Level of Care Code 61986 Initial Inpt Care Lvl 3 Diagnoses Acute intra-cranial hemorrhage I62.9 Hypertension I10 Hypertension type: unspecified Right sided weakness R53.1 Vasogenic edema G93.6 History of spontaneous intraparenchymal intracranial hemorrhage Z86.79 Hypercholesterolemia E78.00 Constipation, chronic K59.09 (1) Hypertension Hypertension type: unspecified Qualified Code(s): I10 - Essential (primary) hypertension
[2019-08-12] MEDS: ARTIFICIAL TEARS OP OINT 3.5 GM TUBE OP SCH (22:34)
[2019-08-12] MEDS: LATANOPROST 0.005% OP SOLN 2.5 ML BTL OPR SCH (22:34)
[2019-08-13] MEDS: POTASSIUM CHLORIDE / WTR 10 MEQ/100 ML PLCT IV SCH ×4 (02:07→08:04)
[2019-08-13 06:23] LABS: Basophils # (auto) 0.01 K/uL (0-0.2); Basophils % (auto) 0.2 %; Hematocrit (blood only) 37.3 % (37-47); Hemoglobin 12.8 g/dL (12.0-16.0); Lymphocytes # (auto) 0.88 K/uL (1.2-3.4); Lymphocytes % (auto) 13.3 %; Mean Corpuscular Hemoglobin 32.7 pg (25-34); Mean Corpuscular Hgb Conc 34.3 g/dL (32-36); Mean Corpuscular Volume 95.4 fL (80-100); Neutrophils # (auto) 5.15 K/uL (1.4-6.5); Neutrophils % (auto) 77.5 %; Platelet Count 199 K/uL (130-400); RDW Standard Deviation 45.5 fL (36.4-46.3); Red Blood Count 3.91 M/uL (4.2-5.4); White Blood Count 6.64 K/uL (4.8-10.8)
[2019-08-13 06:37] LABS: Estimated Average Glucose 126 mg/dl
[2019-08-13 07:07] LABS: BUN Creatinine Ratio 28.8 (10-20); Creatinine Clr Calc Pharmacy 63.2 ml/min; Est GFR (African American) 88.3; Est GFR (Non-African American) 76.2; Potassium 3.9 mmol/L (3.5-5.1)
[2019-08-13] MEDS: ENOXAPARIN INJ 30 MG/0.3 ML SYR SQ SCH (09:06)
[2019-08-13] MEDS: LIDOCAINE 5% 1 PATCH TD SCH (09:06)
[2019-08-13] MEDS: ARTIFICIAL TEARS OP OINT 3.5 GM TUBE OP SCH ×4 (09:07→20:42)
[2019-08-13] MEDS: CALCIUM 600MG + VIT D 400 IU TAB PO SCH ×2 (09:11→20:42)
[2019-08-13] MEDS: FAMOTIDINE 20 MG TAB PO SCH ×2 (09:12→20:44)
[2019-08-13] MEDS: ASPIRIN 81 MG ECTAB PO SCH (09:12)
[2019-08-13] MEDS: hydroCHLOROthiazide 25 MG TAB PO SCH ×2 (09:12→20:43)
[2019-08-13] MEDS: CEROVITE ADV FORMULA TAB PO SCH (09:12)
[2019-08-13] MEDS: DOCUSATE SODIUM 100 MG CAP PO SCH ×2 (09:12→20:41)
--- NOTE | 2019-08-13 10:27 | Electrocardiogram Report ---
Test Reason : Blood Pressure : / mmHG Vent. Rate : 080 BPM Atrial Rate : 080 BPM P-R Int : 154 ms QRS Dur : 106 ms QT Int : 428 ms P-R-T Axes : 000 101 223 degrees QTc Int : 493 ms Sinus rhythm with occasional Premature ventricular complexes Rightward axis Septal infarct (cited on or before 12-AUG-2019) Abnormal ECG When compared with ECG of 03-AUG-2019 12:10, T wave inversion now evident in Inferior leads Confirmed by Tonio Hill ([id number]) on 08/13/2019 10:27:32 AM Referred By: [facility] Confirmed By:Tonio Hill
--- NOTE | 2019-08-13 10:41 | CT Scan Report ---
CT head/brain wo con CLINICAL HISTORY: 78 years-old Female presenting with Intracranial hemorrhage. TECHNIQUE: Multidetector CT imaging of the head was performed without the use of intravenous contrast . IV contrast: None. One or more dose lowering techniques were used consistent with the principles of ALARA (as low as reasonably achievable), including automatic exposure control, mA or kV adjustment t o individual patient size, and/or use of iterative reconstruction. COMPARISON: 08/12/2019. CT DOSE (mGy.cm): The estimated cumulative dose is 1074.96 mGy.cm. FINDINGS: [employer] Executive topogram: Unremarkable. Proportional ventricular and sulcal prominence, likely age-related parenchymal volume loss. Redemonst ration of the acute intraparenchymal hematoma within the left periventricular white matter and left b randa ganglia measuring 19 x 17 mm, unchanged. Similar degree of surrounding vasogenic edema and mild mass effect on the body of the left lateral ventricle. No new hemorrhage. No intraventricular extensi on. Periventricular and subcortical white matter hypoattenuation, nonspecific but likely indicative o f chronic small vessel ischemic change. No acute territorial infarct. No midline shift. No extra-axia l fluid collection. Paranasal sinuses and mastoid air cells clear. Calvarium intact. IMPRESSION: 1. Stable size and appearance of the acute intraparenchymal hematoma in the region of the left basal ganglia with stable degree of associated mass effect and vasogenic edema. ACT 112: Negative or not required by law. Electronically signed by: John Garza M.D. 08/13/2019 10:40 AM
--- NOTE | 2019-08-13 10:59 | Neurology Consultation ---
Date of Consultation August 13, 2019 Assessment & Plan (1) Right sided weakness: (2) History of spontaneous intraparenchymal intracranial hemorrhage: (3) Motor aphasia: (4) Hypertension: This patient has a history of probable small left hemispheric ischemic stroke in June of 2016, from hypertensive small vessel ischemic disease. She recovered from this but apparently was not left on Plavix alone (that we recommended back in September of 2016) and continued to take aspirin plus Plavix over time. She had a spontaneous left basal ganglia intercerebral hemorrhage August 03 and the aspirin and Plavix were stopped. She also had significant hypertension at the time which has been better controlled. The right-sided weakness she had from this event August 03 was improving while she was at [facility]. On August 11 she had acute increase in right arm greater than leg and face weakness with some speech issues. CT scan showed less hemorrhage but some more surrounding edema of uncertain etiology. This morning she had some clinical worsening again but seem stable at the time that I saw her. Much like in June of 2016 she is having a stuttering course with her symptoms. Currently, she has right sided weakness including severe in the arm, moderate in the leg, and mild in the face. She has some motor/expressive aphasia with word substitution and word-finding difficulties but is quite clear and coherent without obvious receptive aphasia. The CT scan findings are puzzling to me. As she is improving with the hemorrhage she is showing edema which should not be increasing 7 to 10 days after hemorrhage. This may be left over, however, from the hemorrhage showing an area of infarct now. An underlying tumor cannot entirely be excluded. Although she does have a history of breast cancer, she has not had any recurrence for many years. Blood pressure is better controlled. Recommendations: 1. Repeat CT scan of the head today 2. Once again I have tried to discuss getting an MRI with the patient but she is adamant that without clearance from her [facility] doctors she will not consent to an MRI. I would prefer an MRI if we could get 1, with without contrast. 3. Increase activity as able. Consider physical, occupational, and speech therapy consultations. She should go back to [facility] once she is stabilized. 4. 81 mg aspirin tablet daily to prevent small vessel ischemic disease. Unfortunately we cannot use clopidogrel now. 5. Without an MRI I am not sure what we can do more specifically for her treatment. Consider slow taper off Decadron as I am not sure this is doing anything for her. Overall, I spent a total of 75 minutes with this case including review of records, review of CT scan films, direct evaluation the patient bedside, and discussion of the patient with the patient at bedside, and Dr. Magallon including differential diagnosis and treatment options. History of Present Illness Reason for Consultation: Patient is a 78-year-old, who I was asked to see at the request of Dr. Magallon, for neurologic consultation regarding weakness. Requesting Physician: Dr. Magallon Attending Physician: Aris Magallon MD History of Present Illness I 1st saw this patient in June of 2016 for a subacute left hemispheric stroke, likely small vessel disease secondary to hypertension. There is a bit of stuttering course to this. She had a facial droop and right-sided weakness without speech issues. NIH stroke scale was 2. CT scan of the head showed no acute changes and the patient was not willing to undergo an MRI because of wires in her chest from a previous split sternum open-heart procedure to repair it atrial septal defect at the [facility] well over 20 years ago. At that time CT angiography of the head and neck showed no significant stenoses but there was some mild plaque in the right carotid bulb and a small ulcerated plaque in the posterior wall of the proximal right ICA. She was put on aspirin and Plavix. I last saw her in September of 2016 and she was improved with her facial droop and right-sided weakness. At the time we last saw her we told her to discontinue aspirin and stay on Plavix alone for stroke prevention. This patient has a history of breast cancer diagnosed in 2010 post surgery, radiation therapy, hormonal therapy. There was never any recurrence noted regarding this. She has a chronic history of hypertension and dyslipidemia. She had mild depression controlled on low-dose sertraline in the past. Patient did well until August 03 when she came to the emergency room with right-sided weakness, arm greater than face and leg. Blood pressure was 179/143. CT scan of the head showed a 2 cm left basal ganglia hemorrhage and she was sent to [facility]. They treated her blood pressure and observed her and her hemorrhage was stable. CT angiography of the head neck were stable and similar to 2016. She was discharged to [facility] in the [facility] on August 07. She was doing well there was some improvement of right-sided weakness until the evening of August 10 when she had some increased arm weakness. The next morning she was doing well but then closer to noon she had increased right-sided weakness with some speech issues word-finding difficulty. She arrived to the emergency room August 11 at 1228, with a temperature of 36.8, pulse 80 and regular, respiratory rate 12, blood pressure 135/74, and O2 saturation 98%. On exam they talked about right-sided weakness but not speech issues. Initial CBC revealed a low sodium and potassium but repeat Chem profile today showed normal potassium and sodium. CBC was stable. Blood pressure this morning is 151/65, hemoglobin A1c 6.0, triglycerides 60, total cholesterol 176. Repeat CT scan of the head yesterday revealed slight decrease in the size of the hemorrhage in the left basal ganglia but some edema around this that was not noticed in the original scan. I reviewed the CT scans from August 03 and August 11. Sometime this morning she had more speech issues and increased weakness of the right arm. Allergies Allergy/AdvReac Type Severity Reaction Status Date / Time latex Allergy Intermediate RASH Verified 08/12/19 14:45 No Known Drug Allergies Allergy Mild none Unverified 08/12/19 14:45 Home Medications Home Medications Medication Instructions Recorded Confirmed Type atorvastatin 20 mg PO HS 08/03/19 08/12/19 History calcium carbonate-vitamin D3 1 tab PO BID 08/03/19 08/12/19 History [Calcium 500 With D] hydrochlorothiazide 25 mg PO Q12 08/03/19 08/12/19 History latanoprost 1 drp OPR HS 08/03/19 08/12/19 History cbuzgqgh-lsv-vblt-FA-lutein 1 tab PO QAM 08/03/19 08/12/19 History [Centrum Silver Women] Ocular Lubricant 1 drp OPB QID 08/12/19 08/12/19 History acetaminophen [Tylenol] 325 mg PO Q4H PRN 08/12/19 08/12/19 History docusate sodium [Colace] 100 mg PO BID 08/12/19 08/12/19 History enoxaparin [Lovenox] 30 mg SUBCUT Q12H 08/12/19 08/12/19 History famotidine 20 mg PO Q12 08/12/19 08/12/19 History lidocaine [Lidoderm] 1 patch TOPICAL QAM 08/12/19 08/12/19 History losartan 100 mg PO HS 08/12/19 08/12/19 History nitroglycerin [Nitrostat] 0.4 mg SUBLINGUAL UD 08/12/19 08/12/19 History oseltamivir [Tamiflu] 75 mg PO QDD 08/12/19 08/12/19 History polyethylene glycol 3350 [Miralax] 17 g PO QDL 08/12/19 08/12/19 History sennosides-docusate sodium 1 tab-cap PO QDL 08/12/19 08/12/19 History [Senokot-S] Patient History Medical History (Updated 08/13/19 @ 10:49 by Missael Baker III, MD) Hypercholesterolemia Hypertension (Acute) Slurred speech Stroke Surgical History History of open heart surgery S/P tonsillectomy Family History Mother , age 72 with heart and lung issues Heart disease Father , age 77 with stroke Stroke Other A-fib Social History Preferred Language: Mauritanian Communication Ability: Effective Stake Driver Required: No Beliefs That Will Affect Care: None Current Living Situation: Alone current occupational status: retired 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 Hx Substance Use: No Review of Systems Constitutional: + weakness; no fever and no fatigue Eyes: no diplopia, no eye pain and no worsening vision Ear, Nose, Mouth, Throat: + dizziness; no ear pain, no tinnitus, no hearing loss, no snoring, no hoarseness and no dysphagia Respiratory: no cough and no dyspnea Cardiovascular: no chest pain, no palpitations and no lightheadedness Gastrointestinal: no abdominal pain, no nausea and no vomiting Genitourinary: no dysuria, no urinary frequency and no urinary incontinence Musculoskeletal: no back pain, no neck pain, no radicular pain, no joint pain and no myalgia Integumentary: no rash and no lesions Neurologic: + localized weakness and + abnormal speech; no gait abnormality, no generalized weakness, no tingling, no numbness, no tremor(s), no abnormal movements, no headache(s), no confusion and no memory loss Psychiatric: no depression, no irritability, no anxiety, no difficulty concentrating, no confusion and no hallucinations Endocrine: no fatigue and no flushing Hematologic / Lymphatic: no easy bleeding and no easy bruising Allergy / Immunological: no urticaria and no problem reported Physical Exam Physical Exam: The patient is right-handed. The patient is awake, alert, and attentive. Speech is without any obvious dysarthria. She seems to comprehend well and can follow commands well. She does have word-finding and word substitution difficulties. She is very fluent with her speech otherwise. She can name objects, repeat phrases, and has normal spontaneous speech. Mentation and thought processes are intact, with orientation to person, place and time, and normal fund of knowledge. Attention and concentration are normal. Mood and affect are normal and appropriate. General appearance and grooming are normal. Short and long-term memory are intact to conversation. The discs are sharp with positive venous pulsations bilaterally. There are no exudates, hemorrhages, or blood vessel changes seen. Pupils are 4 mm bilaterally and reactive to light. Extraocular eye muscles are intact without nystagmus. Visual acuity and visual read seem normal grossly to confrontation. There are no deficits to sensation in the face in all 3 distributions of the fifth cranial nerve bilaterally. Corneal reflexes are positive bilaterally. There was a slight droop of the corner of mouth on the right but did moved fairly well voluntarily. Hearing seems normal to whisper and finger rub bilaterally. Palate moves well without asymmetry. There is normal sternocleidomastoid and trapezius (shoulder shrug) strength bilaterally. Tongue is midline with good strength bilaterally. Neck has a full range of motion without discomfort. There are no cervical bruits bilaterally. There are no cranial or ocular bruits. Heart is without murmur. There is a regular rhythm and rate. Cervical, thoracic, and lumbar spine are nontender to palpation. Gait is not tested but stance sitting up in bed is reasonable. With outstretched arms there is no drift on the left. The right is very paretic. There are no resting, postural, or action tremors. There is no ataxia with finger to nose testing. There is marked decreased facility in the right hand. No other abnormal involuntary movements are noted. Motor strength is 5/5 diffusely in the left arm and leg both proximally and distally. Strength is 0/5 proximally in the right upper extremity and 2/5 distally in the right upper extremity. Strength is 4-/5 proximally in the right lower extremity and 2/5 distally. The limbs have good tone without rigidity or spasticity. There is no atrophy noted in the muscles. Muscle bulk is normal, there is no tenderness to palpation, no myotonia to percussion, and no fasciculations seen. Sensory examination is intact to touch and pin throughout all 4 limbs diffusely. Reflexes are 2/4 in the biceps, triceps, brachioradialis, and quadriceps tendons bilaterally. Achilles tendon reflexes are trace bilaterally. There is no clonus bilaterally. Toes are downgoing with plantar stimulation left and upgoing on plantar stimulation right. Peripheral pulses are present and of normal quality distally in all 4 limbs. There is no peripheral edema noted in the limbs. Results & Data Vital Signs (Past 12 Hours) Vital Signs Temp Pulse Pulse Pulse Resp BP Pulse Ox 08/13/19 07:45 37.1 C 59 L 18 151/65 H 96 08/13/19 03:17 36.7 C 71 18 131/70 96 08/12/19 23:45 36.6 C 71 18 180/91 H 95 08/12/19 23:12 71 PG Care Time/CCT Total # of Minutes Spent Total Time Spent with Patient: Total time spent is greater than 50% in coordination of care (as documented) at patient's floor/unit and/or counseling patient: Coding Level of Care Code 30603 Initial Inpt Care Lvl 3 Diagnoses Right sided weakness R53.1 History of spontaneous intraparenchymal intracranial hemorrhage Z86.79 Motor aphasia R47.01 Hypertension I10 Time Spent (min) 75
[2019-08-13] MEDS: DOCUSATE SODIUM/SENNA 50/8.6MG TAB PO SCH (12:30)
[2019-08-13] MEDS: POLYETHYLENE (MIRALAX) 17 GM PACK PO SCH (12:30)
--- NOTE | 2019-08-13 14:26 | Hospitalist Progress Note ---
Date of Service August 13, 2019 Assessment & Plan (1) Acute intra-cranial hemorrhage: Admitted to [facility] NSGY service from 08/03/2019 to 08/07/2019 for an intracranial hemorrhage that was treated conservatively with BP control. - Admitted provider discussed with [place] (Dr. Chris Casiano) who do not feel she needs to return there given stability of the bleed. - BP control -> Keep SBP under 150 - Continue ASA, stop Plavix indefinitely - Repeat CT head on 08/12 for new visual symptoms -> Stable bleeding and swelling. (2) Hypertension: As above, goal SBP < 150. - Continue tight control blood pressure. - Continue hydrochlorothiazide, losartan (3) Right sided weakness: As above. - Physical and Occupational Therapy (4) Hypercholesterolemia: - Continue atorvastatin 20 mg p.o. nightly. (5) Constipation, chronic: No noted issue presently. - Continue Senokot 1 tablet p.o. QDL, continue docusate sodium 100 mg p.o. twice daily. (6) DVT prophylaxis: Lovenox 30mg SQ Q12h -> This is what she was discharged on from [place]. Unclear why the higher dose or why she was continued on Lovenox on discharge. Admission and Anticipated Discharge Date Admission Date: August 12, 2019 Subjective Reports vision issues in the right eye only. She reports that she can see as well, though cannot really give me more information. Has some word louie, alin cordero, "I should have talked with the soup... soup.... soupmaker. You know what I mean." before changing the topic. Reports no fevers/chills, chest pain, shortness of breath, abdominal pain, nausea, or vomiting. Physical Exam Constitutional: WD/WN, vitals as above Eyes: EOM intact bilaterally; no conjunctival abnormality ENMT: external ear and nose normal, oropharynx normal Neck: trachea midline, no thyromegaly normal visual inspection Respiratory: normal respiratory effort, lungs clear to auscultation no respiratory distress Cardiovascular: RRR, no murmur, no edema Gastrointestinal (Abdomen): Inspection/Auscultation: abdomen normal to inspection; abdomen not distended Musculoskeletal: no cyanosis or clubbing, extremities motor strength 5/5 Skin: no rashes, warm and dry Neurologic: awake; + does not move all extremities Speech / Cognition: + abnormal speech (Word salad.) and + abnormal cognition Psychiatric: Orientation: alert, oriented to person and cooperative Results & Data ([facility]) Vital Signs (Past 12 Hours) Vital Signs Temp Pulse Resp BP Pulse Ox 08/13/19 12:00 37 C 62 18 139/66 99 08/13/19 07:45 37.1 C 59 L 18 151/65 H 96 08/13/19 03:17 36.7 C 71 18 131/70 96 PG Care Time/CCT Total # of Minutes Spent Total Time Spent with Patient: Total time spent is greater than 50% in coordination of care (as documented) at patient's floor/unit and/or counseling patient: Coding Level of Care Code 56890 Subseq Hosp Care Lvl 3 Diagnoses Acute intra-cranial hemorrhage I62.9 Hypertension I10 Right sided weakness R53.1 Hypercholesterolemia E78.00 Constipation, chronic K59.09 DVT prophylaxis Z29.9
[2019-08-13] MEDS: OSELTAMIVIR PHOSPHATE 75 MG CAP PO SCH (17:46)
[2019-08-13] MEDS: LATANOPROST 0.005% OP SOLN 2.5 ML BTL OPR SCH (20:44)
[2019-08-13] MEDS: LOSARTAN POTASSIUM 50 MG TAB PO SCH (20:44)
[2019-08-13] MEDS: ATORVASTATIN 20 MG TAB PO SCH (20:44)
[2019-08-14] MEDS: CALCIUM 600MG + VIT D 400 IU TAB PO SCH ×2 (07:46→20:26)
[2019-08-14] MEDS: LIDOCAINE 5% 1 PATCH TD SCH (07:47)
[2019-08-14] MEDS: ASPIRIN 81 MG ECTAB PO SCH (07:47)
[2019-08-14] MEDS: hydroCHLOROthiazide 25 MG TAB PO SCH ×2 (07:47→20:26)
[2019-08-14] MEDS: ENOXAPARIN INJ 30 MG/0.3 ML SYR SQ SCH (07:48)
[2019-08-14] MEDS: CEROVITE ADV FORMULA TAB PO SCH (07:49)
[2019-08-14] MEDS: DOCUSATE SODIUM 100 MG CAP PO SCH ×2 (07:49→20:26)
[2019-08-14] MEDS: ARTIFICIAL TEARS OP OINT 3.5 GM TUBE OP SCH ×4 (07:50→20:26)
[2019-08-14] MEDS: FAMOTIDINE 20 MG TAB PO SCH ×2 (07:50→20:26)
[2019-08-14 08:20] LABS: Basophils # (auto) 0.03 K/uL (0-0.2); Basophils % (auto) 0.5 %; Eosinophils # (auto) 0.14 K/uL (0-0.5); Eosinophils % (auto) 2.6 %; Hematocrit (blood only) 42.9 % (37-47); Hemoglobin 14.3 g/dL (12.0-16.0); Immature Granulocytes # (auto) 0.01 K/uL (0.00-0.02); Immature Granulocytes % (auto) 0.2 %; Lymphocytes # (auto) 1.13 K/uL (1.2-3.4); Lymphocytes % (auto) 20.7 %; Mean Corpuscular Hemoglobin 32.6 pg (25-34); Mean Corpuscular Hgb Conc 33.3 g/dL (32-36); Mean Corpuscular Volume 97.7 fL (80-100); Mean Platelet Volume 10.7 fL (7.4-10.4); Monocytes # (auto) 0.51 K/uL (0.11-0.59); Monocytes % (auto) 9.3 %; Neutrophils # (auto) 3.65 K/uL (1.4-6.5); Neutrophils % (auto) 66.7 %; Platelet Count 213 K/uL (130-400); RDW Coefficient of Variation 13.5 % (11.5-14.5); RDW Standard Deviation 48.3 fL (36.4-46.3); Red Blood Count 4.39 M/uL (4.2-5.4); White Blood Count 5.47 K/uL (4.8-10.8)
[2019-08-14 08:50] LABS: Calcium 9.2 mg/dl (8.5-10.1); Creatinine Clr Calc Pharmacy 70.7 ml/min; Est GFR (African American) 98.5; Potassium 3.9 mmol/L (3.5-5.1)
--- NOTE | 2019-08-14 09:56 | Neurology Progress Note ---
Date of Service August 14, 2019 Assessment & Plan (1) Right sided weakness: (2) History of spontaneous intraparenchymal intracranial hemorrhage: (3) Motor aphasia: (4) Hypertension: This patient has a history of probable small left hemispheric ischemic stroke in June of 2016, from hypertensive small vessel ischemic disease. She recovered from this but apparently was not left on Plavix alone (that we recommended back in September of 2016) and continued to take aspirin plus Plavix over time. She had a spontaneous 2 centimeter left basal ganglia intercerebral hemorrhage August 03 and the aspirin and Plavix were stopped. She also had significant hypertension at the time which has been better controlled. The right-sided weakness she had from this event August 03 was improving while she was at [facility]. On August 11 she had acute increase in right arm greater than leg and face weakness with some speech issues. CT scan showed less hemorrhage but some more surrounding edema of uncertain etiology. This morning she had some clinical worsening again but seem stable at the time that I saw her. Much like in June of 2016 she is having a stuttering course with her symptoms. Today, she is worse than yesterday with the homonymous hemianopsia to the right noted, increased weakness of the right face arm and leg, and some right tressa sensory issues including neglect. Interestingly, her motor speech problem has improved. Overall, this access is if she has a rather significant left middle cerebral artery territory stroke. Vasospasm cannot be excluded. The patient does not have any headache. The CT scan findings are puzzling to me when correlated with her clinical picture. CT scans serially have shown some improvement in the hemorrhage and some area of edema/infarcts surrounding the hemorrhage which appears to be about the same. There were no other findings on CT. Recent CTA was unremarkable as well. Blood pressure is better controlled. Recommendations: 1. Consider MRI of the brain with and without contrast. I have spoke with Radiology and they are comfortable doing her scan, given her remote sternotomy in the early to mid s. 2. If we cannot get an MRI of the brain for whatever reason, consider repeat CT scan of the head and CT angiography with contrast. 3. Increase activity as able. Consider physical, occupational, and speech therapy consultations. She should go back to [facility] once she is stabilized. 4. 81 mg aspirin tablet daily to prevent small vessel ischemic disease. Unfortunately we cannot use clopidogrel now as she still has hemorrhage. Overall, I spent a total of 65 minutes with this case including review of records, review of CT scan films, direct evaluation the patient bedside, and discussion of the patient with the patient at bedside, Dr. Rendon, and Dr. Magallon including differential diagnosis and treatment options. Subjective Patient has no complaint of pain or headache. Her right side is weaker. Her speech is improved. She is not seeing off to the right very well and does not sense things on the right side. Blood pressure is 147/75. Repeat CT scan yesterday showed no change from the previous study of August 11. CT angiography from August 11 was quite normal and all CT and CTA films recently were reviewed with Dr. Rendon in Radiology. Physical Exam Physical Exam: She is awake and alert. Speech is without obvious dysarthria. She had mild word-finding difficulties only (improved from yesterday). Extraocular eye muscles were intact. She has a little bit of a denser facial droop on the right today compared to yesterday. The right upper extremity is flashes and she has 0/5 movement. The right lower extremity has some 1 to 2/5 movement proximally and otherwise is 0/5. Reflexes are 2/4 in the arms and trace in the legs bilaterally. Toes were upgoing on plantar stimulation on the right and equivocal on the left. Patient has right-sided neglect and lack of sensation on the right compared to the left. In addition, the patient has what appears to be a significant right homonymous hemianopsia. Results & Data Vital Signs (Past 12 Hours) Vital Signs Temp Pulse Pulse Resp BP Pulse Ox 08/14/19 09:02 74 08/14/19 07:37 36.4 C L 65 16 147/75 H 97 08/14/19 02:48 36.9 C 69 18 167/68 H 97 08/13/19 23:12 36.8 C 64 17 154/67 H 95 PG Care Time/CCT Total # of Minutes Spent Total Time Spent with Patient: Total time spent is greater than 50% in coordination of care (as documented) at patient's floor/unit and/or counseling patient: Coding Level of Care Code 94299 Subseq Hosp Care Lvl 3 Diagnoses Right sided weakness R53.1 History of spontaneous intraparenchymal intracranial hemorrhage Z86.79 Motor aphasia R47.01 Hypertension I10 Time Spent (min) 65 Comment Add [id number] to the [id number]
[2019-08-14] MEDS: DOCUSATE SODIUM/SENNA 50/8.6MG TAB PO SCH (11:55)
[2019-08-14] MEDS: POLYETHYLENE (MIRALAX) 17 GM PACK PO SCH (11:55)
[2019-08-14] MEDS ORDERED: OPTIRAY 320 125ml IV PRN (13:10)
--- NOTE | 2019-08-14 13:23 | CT Scan Report ---
CT head/brain wo con CLINICAL HISTORY: 78 years-old Female presenting with Weakness on the right side. TECHNIQUE: Multidetector CT imaging of the head was performed without the use of intravenous contrast . IV contrast: None. One or more dose lowering techniques were used consistent with the principles of ALARA (as low as reasonably achievable), including automatic exposure control, mA or kV adjustment t o individual patient size, and/or use of iterative reconstruction. COMPARISON: 08/13/2019. CT DOSE (mGy.cm): The estimated cumulative dose is 647.36 mGy.cm. FINDINGS: Cloth Wire Weaver topogram: Unremarkable. Ventricles and sulci normal in size. Slight decreased size of the intraparenchymal hemorrhage in the region of the left basal ganglia, which now measures 17 x 16 mm, previously 19 x 17 mm. Stable degree of surrounding vasogenic edema and minimal mass effect. Periventricular and subcortical white matter hypoattenuation, nonspecific but likely indicative of chronic small vessel ischemic change. No acute territorial infarct. No midline shift. No extra-axial fluid collection. Paranasal sinuses and mastoi d air cells clear. Calvarium intact. IMPRESSION: 1. Stable to slight interval decreased size of the left basal ganglia intraparenchymal hematoma. Sta ble degree of surrounding vasogenic edema. ACT 112: Negative or not required by law. Electronically signed by: John Garza M.D. 08/14/2019 1:21 PM
--- NOTE | 2019-08-14 13:29 | CT Scan Report ---
CT angio head w con CLINICAL HISTORY: 78 years-old Female presenting with Weakness on the right side. TECHNIQUE: Multidetector CT angiography of the head was performed after the administration of intrave nous contrast. 3-D volumetric and/or maximum intensity projection (MIP) images were subsequently radha nstructed for review. IV contrast: 1230 mL of Optiray 320. One or more dose lowering techniques were used consistent with the principles of ALARA (as low as reasonably achievable), including automatic e xposure control, mA or kV adjustment to individual patient size, and/or use of iterative reconstructi on. COMPARISON: 08/12/2019. CT DOSE (mGy.cm): The estimated cumulative dose is 647.36. 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 Anterior circulation: Atherosclerosis of the cavernous segments of the internal carotid arteries. Int racranial portions of the internal carotid arteries patent to the level of the termini though with up to 50% stenosis secondary to calcified plaque. Anterior cerebral arteries (JUANY) patent with a hypopl astic A1 segment of the right JUANY. Middle cerebral arteries patent. Anterior communicating artery pat ent. Posterior circulation: Codominant vertebral arteries. Intradural portions of the vertebral arteries p atent. Posterior inferior cerebellar arteries patent. Basilar artery patent. Anterior inferior cerebe llar arteries poorly visualized. Superior cerebellar arteries patent. Posterior cerebral arteries pat ent. Posterior communicating arteries hypoplastic or aplastic. Dural venous sinuses: Patent. Other: Allowing for the phase of contrast, brain parenchyma within normal limits. Calvarium intact. IMPRESSION: 1. Calcified atherosclerotic plaque resulting in up to 50% stenosis of the cavernous segments of the carotid arteries, unchanged. No evidence of aneurysm, focal vessel occlusion, or hemodynamically sig nificant stenosis of the intracranial arteries. ACT 112: Negative or not required by law. Electronically signed by: John Garza M.D. 08/14/2019 1:27 PM
--- NOTE | 2019-08-14 13:59 | Hospitalist Progress Note ---
Date of Service August 14, 2019 Assessment & Plan (1) Acute intra-cranial hemorrhage: Admitted to [facility] NSGY service from 08/03/2019 to 08/07/2019 for an intracranial hemorrhage that was treated conservatively with BP control. - Admitted provider discussed with [place] (Dr. Chris Casiano) who do not feel she needs to return there given stability of the bleed. - BP control -> Keep SBP under 150 - Continue ASA, stop Plavix indefinitely - Repeat CT head on 08/12 for new visual symptoms - Repeat head CT & CTA on 08/13 for progressive right-sided tressa-neglect. Still stable. (2) Hypertension: As above, goal SBP < 150. - Continue tight control blood pressure. - Continue hydrochlorothiazide, losartan (3) Right sided weakness: As above. - Physical and Occupational Therapy (4) Hypercholesterolemia: - Continue atorvastatin 20 mg p.o. nightly. (5) Constipation, chronic: No noted issue presently. - Continue Senokot 1 tablet p.o. QDL, continue docusate sodium 100 mg p.o. twice daily. (6) DVT prophylaxis: Lovenox 30mg SQ daily -> This is what she was discharged on from [place]. Unclear why the higher dose or why she was continued on Lovenox on discharge. Admission and Anticipated Discharge Date Admission Date: August 12, 2019 Subjective Less word salad today, but weaker. Reports no fevers/chills, chest pain, shortness of breath, abdominal pain, nausea, or vomiting. Physical Exam Constitutional: WD/WN, vitals as above Eyes: EOM intact bilaterally; no conjunctival abnormality ENMT: external ear and nose normal, oropharynx normal Neck: trachea midline, no thyromegaly normal visual inspection Respiratory: normal respiratory effort, lungs clear to auscultation no respiratory distress Cardiovascular: RRR, no murmur, no edema Gastrointestinal (Abdomen): Inspection/Auscultation: abdomen normal to inspection; abdomen not distended Musculoskeletal: no cyanosis or clubbing, extremities motor strength 5/5 Skin: no rashes, warm and dry Neurologic: awake; + does not move all extremities Speech / Cognition: + abnormal speech (Less word salad.) and + abnormal cognition Psychiatric: Orientation: alert, oriented to person and cooperative Results & Data ([place]) Vital Signs (Past 12 Hours) Vital Signs Temp Pulse Pulse Resp BP Pulse Ox 08/14/19 11:13 37.0 C 62 19 145/74 H 94 08/14/19 09:02 74 08/14/19 07:37 36.4 C L 65 16 147/75 H 97 08/14/19 02:48 36.9 C 69 18 167/68 H 97 PG Care Time/CCT Total # of Minutes Spent Total Time Spent with Patient: Total time spent is greater than 50% in coordination of care (as documented) at patient's floor/unit and/or counseling patient: Coding Level of Care Code 89628 Subseq Hosp Care Lvl 2 Diagnoses Acute intra-cranial hemorrhage I62.9 Hypertension I10 Right sided weakness R53.1 Hypercholesterolemia E78.00 Constipation, chronic K59.09 DVT prophylaxis Z29.9
[2019-08-14] MEDS: OSELTAMIVIR PHOSPHATE 75 MG CAP PO SCH (16:45)
[2019-08-14] MEDS: ATORVASTATIN 20 MG TAB PO SCH (20:25)
[2019-08-14] MEDS: LOSARTAN POTASSIUM 50 MG TAB PO SCH (20:26)
[2019-08-14] MEDS: LATANOPROST 0.005% OP SOLN 2.5 ML BTL OPR SCH (20:28)
[2019-08-14] MEDS: ACETAMINOPHEN 325 MG TAB PO PRN (22:26)
[2019-08-15 07:13] LABS: Basophils # (auto) 0.03 K/uL (0-0.2); Basophils % (auto) 0.6 %; Eosinophils # (auto) 0.15 K/uL (0-0.5); Eosinophils % (auto) 2.9 %; Hematocrit (blood only) 40.8 % (37-47); Hemoglobin 13.7 g/dL (12.0-16.0); Immature Granulocytes # (auto) 0.01 K/uL (0.00-0.02); Immature Granulocytes % (auto) 0.2 %; Lymphocytes # (auto) 1.15 K/uL (1.2-3.4); Lymphocytes % (auto) 22.2 %; Mean Corpuscular Hemoglobin 32.4 pg (25-34); Mean Corpuscular Hgb Conc 33.6 g/dL (32-36); Mean Corpuscular Volume 96.5 fL (80-100); Mean Platelet Volume 10.7 fL (7.4-10.4); Monocytes # (auto) 0.55 K/uL (0.11-0.59); Monocytes % (auto) 10.6 %; Neutrophils % (auto) 63.5 %; Platelet Count 196 K/uL (130-400); RDW Coefficient of Variation 13.5 % (11.5-14.5); RDW Standard Deviation 47.6 fL (36.4-46.3); Red Blood Count 4.23 M/uL (4.2-5.4); White Blood Count 5.19 K/uL (4.8-10.8)
[2019-08-15 07:50] LABS: BUN Creatinine Ratio 25.6 (10-20); Calcium 9.6 mg/dl (8.5-10.1); Creatinine Clr Calc Pharmacy 66.1 ml/min; Est GFR (African American) 92.7; Potassium 3.6 mmol/L (3.5-5.1)
[2019-08-15] MEDS: ASPIRIN 81 MG ECTAB PO SCH (08:07)
[2019-08-15] MEDS: FAMOTIDINE 20 MG TAB PO SCH ×2 (08:07→20:27)
[2019-08-15] MEDS: CEROVITE ADV FORMULA TAB PO SCH (08:08)
[2019-08-15] MEDS: hydroCHLOROthiazide 25 MG TAB PO SCH ×2 (08:08→20:26)
[2019-08-15] MEDS: DOCUSATE SODIUM 100 MG CAP PO SCH ×2 (08:08→20:25)
[2019-08-15] MEDS: CALCIUM 600MG + VIT D 400 IU TAB PO SCH ×2 (08:08→20:28)
[2019-08-15] MEDS: ENOXAPARIN INJ 30 MG/0.3 ML SYR SQ SCH (08:08)
[2019-08-15] MEDS: ARTIFICIAL TEARS OP OINT 3.5 GM TUBE OP SCH ×4 (08:09→20:32)
[2019-08-15] MEDS: LIDOCAINE 5% 1 PATCH TD SCH (08:09)
--- NOTE | 2019-08-15 09:20 | Neurology Progress Note ---
Date of Service August 15, 2019 Assessment & Plan (1) Right sided weakness: (2) History of spontaneous intraparenchymal intracranial hemorrhage: (3) Motor aphasia: (4) Hypertension: This patient has a history of probable small left hemispheric ischemic stroke in June of 2016, from hypertensive small vessel ischemic disease (never got an MRI of the brain). She recovered from this but apparently was not left on Plavix alone (that we recommended back in September of 2016) and continued to take aspirin plus Plavix over time. She had a spontaneous 2 centimeter left basal ganglia intercerebral hemorrhage August 03 and the aspirin and Plavix were stopped. She also had significant hypertension at the time which has been better controlled. The right-sided weakness she had from this event August 03 was improving while she was at [facility]. On August 11 she had acute increase in right arm greater than leg and face weakness with some speech issues. CT scan showed less hemorrhage but some more surrounding edema of uncertain etiology. This morning she had some clinical worsening again but seem stable at the time that I saw her. Much like in June of 2016 she is having a stuttering course with her symptoms. On August 13, she was worse than previous with a significant right homonymous hemianopsia, increased weakness of the right face arm and leg (plegia), and some right hemisensory issues including neglect. Interestingly, her motor speech problem was improved. Today, she is stable with her vision, weakness, and numbness. I do not detect any motor speech issue today. CTA of the head and CT head from August 13 are showing a pattern of decreasing hemorrhage and a more clear patchy left middle cerebral artery territory infarct. There is no clear evidence of actual edema on CT scans. Blood pressure is better controlled. Recommendations: 1. Although we are considering an MRI of the brain, with and without contrast, to completely rule out tumor and assess the size of her current stroke, the patient and her son continue to refuse this until they directly hear from their surgeon at [place]. I have spoken with Radiology and MRI and they are comfortable doing her scan, given her remote sternotomy in the early to mid 90s. 2. Increase activity as able. Continue physical, occupational, and speech therapy consultations. She should go back to [facility] once she is stabilized. 3. Continue 81 mg aspirin tablet daily to prevent small vessel ischemic disease. Unfortunately we cannot use clopidogrel now as she still has hemorrhage (actually, I prefer Plavix to aspirin in her case, and perhaps once the blood is completely resource and I will switch her from aspirin to Plavix again). 4. Continue to control blood pressure, aiming for a mean arterial pressure of approximately 95. 5. Fasting lipid profile on August 11 was remarkable for triglycerides of 60 and cholesterol of 176. Continue with atorvastatin 20. Given her age and intercerebral hemorrhage, she would not be a high dose statin candidate. 6. Continued to control glucose keeping the hemoglobin A1c around 6.0. Overall, I spent a total of 70 minutes with this case including review of records, review of CT scan films, direct evaluation the patient bedside, and discussion of the patient with the patient and RN at bedside, Dr. Dubois, radiology, and Dr. Hopkins, including differential diagnosis and treatment options. Subjective The patient has No complaint of pain or headache. Nursing reports no new events or issues overnight. Blood pressure was 128/73 this morning. CBC and Chem profile were largely unremarkable. CT angiography of the head with contrast revealed no major vessel anomalies and looks similar to the previous study. CT scan of the head showed an improvement in the left basal ganglia area intra cerebral hemorrhage compared to previous studies and showed more demarcation of area around this that appeared to be consistent with ischemic stroke. I reviewed all these films with Dr. Dubois and there is consensus is that surrounding the intercerebral hemorrhage is ischemic stroke compared to edema. There does not seem to be any evidence to suggest an underlying tumor. Physical Exam Physical Exam: She is awake and alert. Speech is without obvious word-finding deficits or substitutions. She has not specifically dysarthric. Extraocular eye muscles are intact without nystagmus. She has a droop of the corner of mouth on the right and can move some with voluntary smile fairly similar to yesterday. She is plegic in her right arm and leg distally and has some movement proximally leg greater than arm. The left side is strong. She still neglects the right side and decreased sensation on the right side. She still has some right homonymous hemianopsia . Results & Data Vital Signs (Past 12 Hours) Vital Signs Temp Pulse Pulse Resp BP Pulse Ox 08/15/19 09:12 36.6 C 80 16 128/73 96 08/15/19 07:35 36.5 C 61 16 160/75 H 100 08/15/19 03:55 36.6 C 59 L 17 131/68 97 08/15/19 01:22 71 08/15/19 00:14 60 20 136/68 96 08/14/19 23:29 36.3 C L 62 17 164/68 H 93 PG Care Time/CCT Total # of Minutes Spent Total Time Spent with Patient: Total time spent is greater than 50% in coordination of care (as documented) at patient's floor/unit and/or counseling patient: Coding Level of Care Code 43528 Subseq Hosp Care Lvl 3 Diagnoses Right sided weakness R53.1 History of spontaneous intraparenchymal intracranial hemorrhage Z86.79 Motor aphasia R47.01 Hypertension I10 Time Spent (min) 65 Comment Add [id number] to the [id number]
[2019-08-15] MEDS: DOCUSATE SODIUM/SENNA 50/8.6MG TAB PO SCH (11:25)
[2019-08-15] MEDS: POLYETHYLENE (MIRALAX) 17 GM PACK PO SCH (11:25)
[2019-08-15] MEDS: OSELTAMIVIR PHOSPHATE 75 MG CAP PO SCH (16:23)
--- NOTE | 2019-08-15 19:45 | Hospitalist Progress Note ---
Date of Service August 15, 2019 Assessment & Plan (1) Stroke: Presented with worsening Rt sided weakness in setting of recent acute ICH causing Rt hemiplegia Also had some stuttering speech issues, and with right homonymous hemianopsia, right sided neglect CT Head on repeat now showing likely Left MCA territory ischemic CVA Pt refusing MRI until confirmation obtained from her CT Surgeon regarding her sternal wires being MRI compatible--> it seems the son has made contact with this Surgeon despite the Surgeon being out of town--> will confirm this tomorrow and then hopefully can proceed ahead with MRI brain as planned CTA Head/neck with various 50% stenosis carotids and rt vertebral artery but nothing that needs intervention -continue ASA alone, statin mod intensity due to age, recent ICH--> not a high intensity candidate -needs improved BP control with goal MAP 95--> add amlodipine low dose today as below -continue Neuro checks -appreciate Neuro consult -PT/OT/Speech therapy all needed (2) Acute intra-cranial hemorrhage: Admitted to [facility] NSGY service from 08/03/2019 to 08/07/2019 for an intracranial hemorrhage that was treated conservatively with BP control. - Admitted provider discussed with [place] (Dr. Chris Casiano) who do not feel she needs to return there given stability to improvement of the bleed. - BP control -> Keep SBP under 150-added amlodipine today - Continue ASA, stopped Plavix indefinitely - Repeat CT head on 08/12 for new visual symptoms shows stability of hemorrhage but now likely MCA territory CVA ischemic as above - Repeat head CT & CTA on 08/13 for progressive right-sided tressa-neglect. Still stable. (3) Hypertension: As above, goal SBP < 150. BPs remain high in 160s systolic - Continue tight control blood pressure-add amlodipine 2.5mg po once daily - Continue hydrochlorothiazide 25mg po bid (increased to bid during her stay at [place]), continue losartan 100mg daily Follow BPs (4) Right sided weakness: As above. - Physical and Occupational Therapy (5) Hypercholesterolemia: - Continue atorvastatin 20 mg p.o. nightly. (6) Constipation, chronic: No noted issue presently. - Continue Senokot 1 tablet p.o. QDL, continue docusate sodium 100 mg p.o. twice daily. (7) Cerebrovascular disease: 50% rt vertebral artery stenosis Continue ASA, statin (8) Carotid artery stenosis: 50% stenosis bilat -continue ASA, Statin -follow as outpt (9) DVT prophylaxis: Lovenox 30mg SQ daily Dispo-remain here for continued observation given stuttering course of stroke symptoms Definitely needs rehab after discharge Awaiting brain MRI Admission and Anticipated Discharge Date Admission Date: August 12, 2019 Subjective Pt feels her speech is better but is still very weak on right side of body. Gets very anxious when discussing possible discharge back to rehab for this weekend. Still refusing MRI brain until approved directly by her CT Surgeon. Denies headache. Is frustrated that she keeps trying to get out of bed and then realizes her right side does not move well. Denies chest pain or SOB. No nausea or abd pain. I discussed her case at length with Neurology Later in the evening, the RN pointed out to me a nursing note that the son Soham had called and said he spoke to the Surgeon and he said her sternal wires are stainless steel #6. However I wanted to call the son to discuss this and his phone number is not listed in the chart and the pt could not recall his number Tele with SB-NSR rates 50s-60s, PACs, PVCs Review of Systems Review of Systems: All systems reviewed & are unremarkable except as noted in HPI & below Physical Exam Constitutional: WD/WN, vitals as above Eyes: PERRL, conjunctivae normal, anicteric sclerae ENMT: external ear and nose normal, oropharynx normal Neck: trachea midline, no thyromegaly Respiratory: normal respiratory effort, lungs clear to auscultation Cardiovascular: RRR, no murmur, no edema Chest (Breasts): Chest: normal inspection of chest Gastrointestinal (Abdomen): normal bowel sounds, soft, nontender, no hep atosplenomegaly Musculoskeletal: Extremities: extremities normal to inspection; no cyanosis and no clubbing Skin: no rashes, warm and dry Neurologic: CN's II-XI intact bilaterally (except with facial droop on right,tongue protrudes to left), + focal motor deficit (Right sided plegia, some strength proximally) and awake Speech / Cognition: normal speech Motor/Sensory: + sensory deficit (right side body and rt face); no tremor Lymphatic: no lymphedema Results & Data ([facility]) Vital Signs (Past 12 Hours) Vital Signs Temp Pulse Resp BP Pulse Ox 08/15/19 19:35 37 C 71 16 165/74 H 93 08/15/19 15:33 37.0 C 68 18 151/77 H 96 08/15/19 11:21 36.6 C 62 18 145/70 H 95 08/15/19 09:12 36.6 C 80 16 128/73 96 Laboratory Results labs reviewed PG Care Time/CCT Total # of Minutes Spent Total Time Spent with Patient: Total time spent is greater than 50% in coordination of care (as documented) at patient's floor/unit and/or counseling patient: Coding Level of Care Code 54393 Subseq Hosp Care Lvl 3 Diagnoses Stroke I63.9 Acute intra-cranial hemorrhage I62.9 Hypertension I10 Right sided weakness R53.1 Hypercholesterolemia E78.00 Constipation, chronic K59.09 Cerebrovascular disease I67.9 Carotid artery stenosis I65.29 DVT prophylaxis Z29.9
[2019-08-15] MEDS: ATORVASTATIN 20 MG TAB PO SCH (20:26)
[2019-08-15] MEDS: LOSARTAN POTASSIUM 50 MG TAB PO SCH (20:27)
[2019-08-15] MEDS: AMLODIPINE BESYLATE 5 MG TAB PO SCH (20:30)
[2019-08-15] MEDS: LATANOPROST 0.005% OP SOLN 2.5 ML BTL OPR SCH (20:31)
[2019-08-15] MEDS ORDERED: ATORVASTATIN 40 MG TAB PO SCH (21:00)
[2019-08-15] MEDS: ACETAMINOPHEN 325 MG TAB PO PRN (21:34)
[2019-08-16] MEDS: CEROVITE ADV FORMULA TAB PO SCH (07:52)
[2019-08-16] MEDS: CALCIUM 600MG + VIT D 400 IU TAB PO SCH ×2 (07:52→20:45)
[2019-08-16] MEDS: DOCUSATE SODIUM 100 MG CAP PO SCH ×2 (07:52→20:45)
[2019-08-16] MEDS: AMLODIPINE BESYLATE 5 MG TAB PO SCH (07:52)
[2019-08-16] MEDS: FAMOTIDINE 20 MG TAB PO SCH ×2 (07:53→20:44)
[2019-08-16] MEDS: hydroCHLOROthiazide 25 MG TAB PO SCH ×2 (07:53→20:45)
[2019-08-16] MEDS: ARTIFICIAL TEARS OP OINT 3.5 GM TUBE OP SCH ×4 (07:54→20:45)
[2019-08-16] MEDS: LIDOCAINE 5% 1 PATCH TD SCH (07:54)
[2019-08-16] MEDS: ASPIRIN 81 MG ECTAB PO SCH (07:55)
[2019-08-16] MEDS: POLYETHYLENE (MIRALAX) 17 GM PACK PO SCH (11:46)
[2019-08-16] MEDS: DOCUSATE SODIUM/SENNA 50/8.6MG TAB PO SCH (11:46)
--- NOTE | 2019-08-16 12:37 | Hospitalist Progress Note ---
Date of Service August 16, 2019 Assessment & Plan (1) Acute intra-cranial hemorrhage: Admitted to [facility] NSGY service from 08/03/2019 to 08/07/2019 for an intracranial hemorrhage that was treated conservatively with BP control. - Admitted provider discussed with [place] (Dr. Chris Casiano) who do not feel she needs to return there given stability of the bleed. - BP control -> Keep SBP under 150 - Continue ASA, stop Plavix indefinitely - Repeat CT head on 08/12 for new visual symptoms - Repeat head CT & CTA on 08/13 for progressive right-sided tressa-neglect. Still stable. - MRI brain today after approval of patient and family. (2) Hypertension: As above, goal SBP < 150. - Continue tight control blood pressure. - Continue hydrochlorothiazide, losartan (3) Right sided weakness: As above. - Physical and Occupational Therapy (4) Hypercholesterolemia: - Continue atorvastatin 20 mg p.o. nightly. (5) Constipation, chronic: No noted issue presently. - Continue Senokot 1 tablet p.o. QDL, continue docusate sodium 100 mg p.o. twice daily. (6) DVT prophylaxis: Lovenox 30mg SQ daily -> This is what she was discharged on from [place]. Unclear why the higher dose or why she was continued on Lovenox on discharge. Admission and Anticipated Discharge Date Admission Date: August 12, 2019 Subjective Doing fine today. Somewhat sleepy. Reports no fevers/chills, chest pain, shortness of breath, abdominal pain, nausea, or vomiting. Physical Exam Constitutional: WD/WN, vitals as above Eyes: EOM intact bilaterally; no conjunctival abnormality ENMT: external ear and nose normal, oropharynx normal Neck: trachea midline, no thyromegaly normal visual inspection Respiratory: normal respiratory effort, lungs clear to auscultation no respiratory distress Cardiovascular: RRR, no murmur, no edema Gastrointestinal (Abdomen): Inspection/Auscultation: abdomen normal to i nspection; abdomen not distended Musculoskeletal: no cyanosis or clubbing, extremities motor strength 5/5 Skin: no rashes, warm and dry Neurologic: awake; + does not move all extremities Speech / Cognition: + abnormal speech (Less word salad.) and + abnormal cognition Psychiatric: Orientation: alert, oriented to person and cooperative Results & Data ([facility]) Vital Signs (Past 12 Hours) Vital Signs Temp Pulse Pulse Resp BP Pulse Ox 08/16/19 11:19 144/75 H 08/16/19 10:59 36.8 C 64 18 179/69 H 94 08/16/19 07:48 36.6 C 73 18 135/72 93 08/16/19 03:27 36.5 C 62 19 114/58 L 95 08/16/19 01:36 72 PG Care Time/CCT Total # of Minutes Spent Total Time Spent with Patient: Total time spent is greater than 50% in coordination of care (as documented) at patient's floor/unit and/or counseling patient: Coding Level of Care Code 28185 Subseq Hosp Care Lvl 2 Diagnoses Acute intra-cranial hemorrhage I62.9 Hypertension I10 Right sided weakness R53.1 Hypercholesterolemia E78.00 Constipation, chronic K59.09 DVT prophylaxis Z29.9
[2019-08-16] MEDS: ENOXAPARIN INJ 30 MG/0.3 ML SYR SQ SCH (13:17)
[2019-08-16] MEDS ORDERED: GADOBUTROL 65ML VIAL IV PRN (15:54)
--- NOTE | 2019-08-16 16:25 | Magnetic Resonance Report ---
MR brain wo/w con HISTORY: 78 years-old Female Concern for stroke; right-sided hemiparesis acute strokelike symptoms COMPARISON: Head CT 08/14/2019, 08/03/2019 TECHNIQUE: Multiplanar multisequence of the brain was obtained both with and without the of 7.5 mL Ga davist FINDINGS: There is a 1.1 x 0.7 cm focus of restricted diffusion within the left thalamus on image 14 series 4 d ecreased signal on ADC map images which is directly medial to a 2.5 x 1.8 cm focus of restricted diff usion which correlates with area of acute intraparenchymal hematoma. No appreciable enhancement. This lesion is T1 hyperintense with central area of intermediate T1 and T2 signal and mild peripheral hem osiderin with moderate amount of surrounding vasogenic edema. Additionally, there is a 3.5 x 1.1 cm a galindo of restricted diffusion with decreased signal on ADC map involving the medial left temporal lobe, image 11 series 4 without hemorrhage. Cytotoxic edema is noted within this distribution. Midline str uctures including the corpus callosum, brainstem, optic chiasm, pituitary and pineal glands are unrem arkable. No cerebellar tonsillar herniation. Degenerative changes of the cervical spine. No abnormal intra-axial or extra-axial enhancement. Age-related involutional changes. Extensive patchy T2/FLAIR h yperintensities throughout the white matter are suggestive of advanced chronic microvascular ischemic disease. The major vascular flow voids appear patent as visualized. Moderate right mastoid effusion. Left mast oid air cells are clear. Soft tissues and orbits are within normal limits. IMPRESSION: 1. Small acute infarct of the left thalamus is noted in conjunction with a small moderate-sized acute infarct of the medial left temporal lobe. 2. Acute intraparenchymal hematoma of the left lentiform nucleus/external capsule is redemonstrated a nd appears stable from comparison. 3. No abnormal enhancement. 4. Age-related involutional changes with extensive T2/FLAIR hyperintensities throughout the white mat ter suggestive of chronic microvascular ischemic disease. ACT 112: Negative or not required by law. The above report was generated using voice recognition software. It may contain grammatical, syntax o r spelling errors. Electronically signed by: Praveen Ruiz M.D. 08/16/2019 4:23 PM
[2019-08-16] MEDS: OSELTAMIVIR PHOSPHATE 75 MG CAP PO SCH (17:07)
[2019-08-16] MEDS: ATORVASTATIN 20 MG TAB PO SCH (20:45)
[2019-08-16] MEDS: LOSARTAN POTASSIUM 50 MG TAB PO SCH (20:45)
[2019-08-16] MEDS: LATANOPROST 0.005% OP SOLN 2.5 ML BTL OPR SCH (20:46)
[2019-08-16] MEDS: ACETAMINOPHEN 325 MG TAB PO PRN (20:55)
--- NOTE | 2019-08-17 07:39 | Neurology Progress Note ---
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 She recovered from this but apparently was not left on Plavix alone (that we recommended back in September of 2016) and continued to take aspirin plus Plavix over time. She had a spontaneous 2 centimeter left basal ganglia intercerebral hemorrhage August 03 and the aspirin and Plavix were stopped. She also had significant hypertension at the time which has been better controlled. The right-sided weakness she had from this event August 03 was improving while she was at [facility]. On August 11 she had acute increase in right arm greater than leg and face weakness with some speech issues. CT scan showed less hemorrhage but some more surrounding edema of uncertain etiology. On August 13, she was worse than previous, with a significant right homonymous hemianopsia, increased weakness of the right face arm and leg (plegia), and some right hemisensory issues including neglect. Interestingly, her motor speech problem was improved. Currently, she is stable with her vision, weakness, and numbness. I do not detect any motor speech issue today. CTA of the head and CT head from August 13 show a pattern of decreasing hemorrhage and a more clear patchy left middle cerebral artery territory infarct. There is no clear evidence of actual edema on CT scans (probably never was edema but always was stroke). MRI of the brain August 15 shows medium-sized stroke involving the left thalamus (explains sensory and motor deficits) as well as the medial left temporal lobe (which likely explains speech in vision, although the speech is improved). Blood pressure is better controlled. Currently I believe she has some depression because of her physical deficits. Recommendations: 1. Consider fluoxetine 20 mg once daily for her mood 2. Increase activity as able. Continue physical, occupational, and speech therapy consultations. She should go back to [facility] once she is stabilized. 3. Continue 81 mg aspirin tablet daily to prevent small vessel ischemic disease. Unfortunately we cannot use clopidogrel now as she still has hemorrhage (actually, I prefer Plavix to aspirin in her case, and perhaps once the blood is completely resource and I will switch her from aspirin to Plavix again). 4. Continue to control blood pressure, aiming for a mean arterial pressure of approximately 95. 5. Fasting lipid profile on August 11 was remarkable for triglycerides of 60 and cholesterol of 176. Continue with atorvastatin 20. Given her age and intercerebral hemorrhage, she would not be a high dose statin candidate. 6. Continued to control glucose keeping the hemoglobin A1c around 6.0. Overall, I spent a total of 35 minutes with this case including review of records, review of MRI films, direct evaluation the patient bedside, and dis cussion of the patient with the patient and RN at bedside, and Dr. Magallon, including differential diagnosis and treatment options. Subjective Patient has a little bit of occipital headache this morning but otherwise feels stable. She is frustrated from her neurologic deficits but otherwise is in a reasonable mood. Nursing reports no events overnight such as seizures or other issues. She has been stable over the last 24 hours. MRI of the brain showed a medium-sized left hemispheric stroke involving the left thalamus and medial temporal lobe. There is [id number] old small vessel ischemic changes and the resolving hemorrhage as noted on CT scans previously. I reviewed these films. Physical Exam Physical Exam: She is awake and alert. Speech is without obvious aphasia or dysarthria. She is pleasant and cooperative. Mood is reasonable and affect is appropriate. Memory seems intact to conversation. Extraocular eye muscles are intact without nystagmus. There is some slight facial droop on the right at the corner of the mouth but it moves fairly well. She has some decreased vision to the right as before. Her right upper extremity is plegic and she can move her right lower extremity proximally to get her foot off the bed. She cannot move distally in the foot however. Toes are upgoing on plantar stimulation on the right. Left side is strong. There are no abnormal involuntary movements. She has decreased sensation to touch in the right arm greater than leg. 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
[2019-08-17] MEDS: CALCIUM 600MG + VIT D 400 IU TAB PO SCH ×2 (07:57→21:05)
[2019-08-17] MEDS: ENOXAPARIN INJ 30 MG/0.3 ML SYR SQ SCH (07:57)
[2019-08-17] MEDS: CEROVITE ADV FORMULA TAB PO SCH (07:57)
[2019-08-17] MEDS: ASPIRIN 81 MG ECTAB PO SCH (07:57)
[2019-08-17] MEDS: DOCUSATE SODIUM 100 MG CAP PO SCH ×2 (07:57→21:06)
[2019-08-17] MEDS: ARTIFICIAL TEARS OP OINT 3.5 GM TUBE OP SCH ×3 (07:58→16:08)
[2019-08-17] MEDS: hydroCHLOROthiazide 25 MG TAB PO SCH ×2 (07:58→21:04)
[2019-08-17] MEDS: LIDOCAINE 5% 1 PATCH TD SCH (07:58)
[2019-08-17] MEDS: AMLODIPINE BESYLATE 5 MG TAB PO SCH (07:59)
[2019-08-17] MEDS: FAMOTIDINE 20 MG TAB PO SCH ×2 (07:59→21:04)
[2019-08-17] MEDS: DOCUSATE SODIUM/SENNA 50/8.6MG TAB PO SCH (12:08)
[2019-08-17] MEDS: POLYETHYLENE (MIRALAX) 17 GM PACK PO SCH (12:08)
--- NOTE | 2019-08-17 13:59 | Hospitalist Progress Note ---
Date of Service August 17, 2019 Assessment & Plan (1) Acute intra-cranial hemorrhage: Admitted to [facility] NSGY service from 08/03/2019 to 08/07/2019 for an intracranial hemorrhage that was treated conservatively with BP control. - Repeat head CT & CTA on 08/13 for progressive right-sided tressa-neglect. Still stable. - MRI brain on 08/15 showed the known intraparenchymal hematoma of the left lentiform nucleus/external capsule. It also showed a small acute infarct of the left thalamus is noted in conjunction with a small moderate-sized acute infarct of the medial left temporal lobe. - BP control -> Keep SBP under 150 - Continue ASA & statin, stop Plavix indefinitely (2) Hypertension: As above, goal SBP < 150. - Continue hydrochlorothiazide, losartan - Amlodipine 2.5 mg daily started on 08/14 -> Should be taking effect still; will monitor. (3) Right sided weakness: As above. - Physical and Occupational Therapy - Recommended for [facility] (4) Hypercholesterolemia: LDL was 99 this admission. - Increase atorvastatin to 40 mg p.o. nightly. (5) Constipation, chronic: No noted issue presently. - Continue Senokot 1 tablet p.o. QDL, continue docusate sodium 100 mg p.o. twice daily. (6) DVT prophylaxis: Lovenox 30mg SQ daily Admission and Anticipated Discharge Date Admission Date: August 12, 2019 Subjective Doing well today. She is in the chair and doing well. Right side still weak. Less speech issues. Reports no fevers/chills, chest pain, shortness of breath, abdominal pain, nausea, or vomiting. Physical Exam Constitutional: WD/WN, vitals as above Eyes: EOM intact bilaterally; no conjunctival abnormality ENMT: external ear and nose normal, oropharynx normal Neck: trachea midline, no thyromegaly normal visual inspection Respiratory: normal respiratory effort, lungs clear to auscultation no respiratory distress Cardiovascular: RRR, no murmur, no edema Gastrointestinal (Abdomen): Inspection/Auscultation: abdomen normal to inspection; abdomen not distended Musculoskeletal: no cyanosis or clubbing, extremities motor strength 5/5 Skin: no rashes, warm and dry Neurologic: awake; + does not move all extremities Speech / Cognition: + abnormal speech (Less word salad.); normal cognition Psychiatric: Orientation: alert, oriented to person and cooperative Results & Data ([facility]) Vital Signs (Past 12 Hours) Vital Signs Temp Pulse Pulse Resp BP Pulse Ox 08/17/19 11:34 37 C 73 18 132/72 96 08/17/19 09:03 71 08/17/19 07:40 36.5 C 76 18 143/73 H 91 08/17/19 03:58 36.8 C 61 18 153/75 H 95 PG Care Time/CCT Total # of Minutes Spent Total Time Spent with Patient: Total time spent is greater than 50% in coordination of care (as documented) at patient's floor/unit and/or counseling patient: Coding Level of Care Code 68098 Subseq Hosp Care Lvl 3 Diagnoses Acute intra-cranial hemorrhage I62.9 Hypertension I10 Right sided weakness R53.1 Hypercholesterolemia E78.00 Constipation, chronic K59.09 DVT prophylaxis Z29.9
--- NOTE | 2019-08-17 17:18 | Billing Data ---
Date of Service August 17, 2019 Coding Level of Care Code 87078 Prolonged Care (int'l) Comment In room with patient from 9:00am to 9:15am and 4:45pm to 5:15pm.
[2019-08-17] MEDS: LOSARTAN POTASSIUM 50 MG TAB PO SCH (21:05)
[2019-08-17] MEDS: ARTIFICIAL TEARS OP SCH (21:06)
[2019-08-17] MEDS: ATORVASTATIN 40 MG TAB PO SCH (21:08)
[2019-08-17] MEDS: LATANOPROST 0.005% OP SOLN 2.5 ML BTL OPR SCH (21:08)
[2019-08-17] MEDS: ACETAMINOPHEN 325 MG TAB PO PRN (21:15)
[2019-08-18] MEDS: DOCUSATE SODIUM 100 MG CAP PO SCH ×2 (08:57→20:37)
[2019-08-18] MEDS: ASPIRIN 81 MG ECTAB PO SCH (08:57)
[2019-08-18] MEDS: hydroCHLOROthiazide 25 MG TAB PO SCH ×2 (08:57→20:38)
[2019-08-18] MEDS: FAMOTIDINE 20 MG TAB PO SCH ×2 (08:57→20:37)
[2019-08-18] MEDS: DOCUSATE SODIUM/SENNA 50/8.6MG TAB PO SCH (08:58)
[2019-08-18] MEDS: CEROVITE ADV FORMULA TAB PO SCH (08:59)
[2019-08-18] MEDS: LIDOCAINE 5% 1 PATCH TD SCH (08:59)
[2019-08-18] MEDS: AMLODIPINE BESYLATE 5 MG TAB PO SCH (08:59)
[2019-08-18] MEDS: CALCIUM 600MG + VIT D 400 IU TAB PO SCH ×2 (08:59→20:37)
[2019-08-18] MEDS: ARTIFICIAL TEARS OP SCH ×2 (09:00→20:37)
[2019-08-18] MEDS: ENOXAPARIN INJ 30 MG/0.3 ML SYR SQ SCH (09:00)
[2019-08-18] MEDS: POLYETHYLENE (MIRALAX) 17 GM PACK PO SCH (09:01)
--- NOTE | 2019-08-18 15:50 | Hospitalist Progress Note ---
Date of Service August 18, 2019 Assessment & Plan (1) Acute intra-cranial hemorrhage: Admitted to [facility] NSGY service from 08/03/2019 to 08/07/2019 for an intracranial hemorrhage that was treated conservatively with BP control. - Repeat head CT & CTA on 08/13 for progressive right-sided tressa-neglect. Still stable. - MRI brain on 08/15 showed the known intraparenchymal hematoma of the left lentiform nucleus/external capsule. It also showed a small acute infarct of the left thalamus is noted in conjunction with a small moderate-sized acute infarct of the medial left temporal lobe. - BP control -> Keep SBP under 150 - Continue ASA & statin, stop Plavix indefinitely - May have some waxing and waning symptoms, especially vision as she has some right-eye involvement and possibly even right tressa-neglect. However, given the resolution today, will not re-image. (2) Hypertension: As above, goal SBP < 150. - Continue hydrochlorothiazide, losartan - Amlodipine 5 mg daily started on 08/14 -> BP is overall much improved, though high is still 160/70. Mostly better at ~130/70. (3) Right sided weakness: As above. - Physical and Occupational Therapy - Recommended for [facility] -> Hoping to go to [facility]. Did not like [facility]. (4) Hypercholesterolemia: LDL was 99 this admission. Goal after stroke is <70. - Increased atorvastatin to 40 mg HS. (5) Constipation, chronic: No noted issue presently. - Continue Senokot 1 tablet p.o. QDL, continue docusate sodium 100 mg p.o. twice daily. (6) DVT prophylaxis: Lovenox 30mg SQ daily Admission and Anticipated Discharge Date Admission Date: August 12, 2019 Subjective Doing well today. Her eye symptoms are improved from yesterday. She feels the left eye is stable. Reports no fevers/chills, chest pain, shortness of breath, abdominal pain, nausea, or vomiting. Physical Exam Constitutional: WD/WN, vitals as above Eyes: EOM intact bilaterally; no conjunctival abnormality ENMT: external ear and nose normal, oropharynx normal Neck: trachea midline, no thyromegaly normal visual inspection Respiratory: normal respiratory effort, lungs clear to auscultation no respiratory distress Cardiovascular: RRR, no murmur, no edema Gastrointestinal (Abdomen): Inspection/Auscultation: abdomen normal to inspection; abdomen not distended Musculoskeletal: no cyanosis or clubbing, extremities motor strength 5/5 Skin: no rashes, warm and dry Neurologic: awake; + does not move all extremities Speech / Cognition: + abnormal speech (Less word salad.); normal cognition Psychiatric: Orientation: alert, oriented to person and cooperative Results & Data ([facility]) Vital Signs (Past 12 Hours) Vital Signs Temp Pulse Resp BP Pulse Ox 08/18/19 11:56 36.9 C 71 18 133/72 95 08/18/19 07:55 36.6 C 72 18 163/72 H 94 PG Care Time/CCT Total # of Minutes Spent Total Time Spent with Patient: Total time spent is greater than 50% in coordinat ion of care (as documented) at patient's floor/unit and/or counseling patient: Coding Level of Care Code 89086 Subseq Hosp Care Lvl 2 Diagnoses Acute intra-cranial hemorrhage I62.9 Hypertension I10 Right sided weakness R53.1 Hypercholesterolemia E78.00 Constipation, chronic K59.09 DVT prophylaxis Z29.9
[2019-08-18] MEDS: LOSARTAN POTASSIUM 50 MG TAB PO SCH (20:37)
[2019-08-18] MEDS: ATORVASTATIN 40 MG TAB PO SCH (20:37)
[2019-08-18] MEDS: ACETAMINOPHEN 325 MG TAB PO PRN (22:37)
[2019-08-18] MEDS: LATANOPROST 0.005% OP SOLN 2.5 ML BTL OPR SCH (22:37)
[2019-08-19] MEDS: ASPIRIN 81 MG ECTAB PO SCH (09:04)
[2019-08-19] MEDS: DOCUSATE SODIUM 100 MG CAP PO SCH (09:05)
[2019-08-19] MEDS: CALCIUM 600MG + VIT D 400 IU TAB PO SCH (09:05)
[2019-08-19] MEDS: AMLODIPINE BESYLATE 5 MG TAB PO SCH (09:05)
[2019-08-19] MEDS: FAMOTIDINE 20 MG TAB PO SCH (09:05)
[2019-08-19] MEDS: ENOXAPARIN INJ 30 MG/0.3 ML SYR SQ SCH (09:06)
[2019-08-19] MEDS: hydroCHLOROthiazide 25 MG TAB PO SCH (09:06)
[2019-08-19] MEDS: CEROVITE ADV FORMULA TAB PO SCH (09:06)
[2019-08-19] MEDS: LIDOCAINE 5% 1 PATCH TD SCH (09:07)
[2019-08-19] MEDS: ARTIFICIAL TEARS OP SCH (09:11)
--- NOTE | 2019-08-19 12:00 | Discharge Summary ---
Date of Service August 19, 2019 Admission HPI Per Admitting Provider The patient is a 78 years old female with past medical history of hypertension, CVA, breast cancer, AST and hyperlipidemia was brought from the [facility] for evaluation of worsening weakness of the right side that began last night. The patient's family noted that the patient had a bleed in the brain on the August 07 with right-sided weakness in the arm and leg. Patient was seen at [facility]. Outside record was reviewed which shows that patient was on August 08, 2019 admitted to the neuro ICU under neurosurgery service at [facility] and that she was treated for hypertensive emergency and right-sided facial droop with right-sided weakness that occurred around a.m. on August 03, 2019. Prior to arriving to [facility] patient was at outside hospital versus a CT had demonstrated a left basal ganglia hemorrhage. Patient was discharged home on aspirin 81 mg, atorvastatin 20 mg p.o. nightly, Lovenox 30 mg subcutaneously every 12 hours, she was recommended to stop clopidogrel 75 mg p.o. daily. Since then patient has been in [facility] for rehabilitation. ER physician discussed the case with Dr.Kevin Casiano neurosurgeon at [facility] and it was only recommended to continue monitoring patient and continue Asa 81 mg and Lovenox 30 mg sc daily -for ppx. No neurosurgery is recommended at this time. MRI of the brain was also recommended but patient refused stating that she had sternotomy procedure in the past and she was told that she should never have MRI done in the future. The case was also discussed with Dr. Alexis Baker neurologist who recommended MRI and steroids as well. CTA head and neck was done which shows: Acute/subacute intraparenchymal hematoma centered about the left basal ganglia there is slightly decreased in size from comparison now measuring 1.9 x 1.7 cm previously 2.1 x 1.8 cm mildly increased surrounding vasogenic edema with partial effacement of the adjacent left lateral ventricle. There is no midline shift hydrocephalus, territorial ischemia or abnormal extra-axial axial collection. Age-related involution changes with patchy white matter hypodensities suggestive of chronic microvascular ischemic disease. Cerebrovascular calcifications are noted. The calvarium is intact. The paranasal sinuses mastoid air cells and middle ear cavities are clear. Impression slightly decreased size of the acute intraparenchymal hematoma centered within the left basal ganglia measuring up to 1.9 cm with mildly increased amount of surrounding vasogenic edema resulting in partial effacement of the adjacent left lateral ventricle. There is no mildly shift of hydrocephalus. The decision was made to admit patient to the PCU on telemetry to start steroids and monitor her for possible seizure. Principal Diagnosis Right-sided strokes Discharge Exam Constitutional WD/WN, vitals as above Eyes EOM intact bilaterally; no conjunctival abnormality ENMT external ear and nose normal, oropharynx normal Neck trachea midline, no thyromegaly normal visual inspection Respiratory normal respiratory effort, lungs clear to auscultation no respiratory distress Cardiovascular RRR, no murmur, no edema Gastrointestinal (Abdomen) Inspection/Auscultation: abdomen normal to inspection; abdomen not distended Musculoskeletal no cyanosis or clubbing, extremities motor strength 5/5 Skin no rashes, warm and dry Neurologic awake; + does not move all extremities Speech / Cognition: + abnormal speech (Less word salad.); normal cognition Psychiatric Orientation: alert, oriented to person and cooperative Discharge Data Allergies Allergy/AdvReac Type Severity Reaction Status Date / Time latex Allergy Intermediate RASH Verified 08/12/19 14:45 No Known Drug Allergies Allergy Mild none Unverified 08/12/19 14:45 Consultations 08/12/19 16:49 ED Decision to Admit Stat 08/12/19 20:44 Consult Case Management - Discharge Planning Routine 08/13/19 09:48 Consult Neurology Routine Ordered Studies 08/12/19 12:44 CT angio head w con Stat CT angio neck with con Stat CT head/brain wo con Stat 08/13/19 09:48 CT head/brain wo con Stat 08/14/19 11:42 CT angio head w con Routine 08/14/19 12:30 CT head/brain wo con Routine 08/16/19 12:43 MR brain wo/w con Routine Hospital Course (1) Acute intra-cranial hemorrhage: Admitted to [facility] NSGY service from 08/03/2019 to 08/07/2019 for an intracranial hemorrhage that was treated conservatively with BP control. - Repeat head CT & CTA on 08/13 for progressive right-sided tressa-neglect. Still stable. - MRI brain on 08/15 showed the known intraparenchymal hematoma of the left lentiform nucleus/external capsule. It also showed a small acute infarct of the left thalamus is noted in conjunction with a small moderate-sized acute infarct of the medial left temporal lobe. - BP control -> Keep SBP under 150 - Continue ASA & statin, stop Plavix indefinitely - May have some waxing and waning symptoms, especially vision as she has some right-eye involvement and possibly even right tressa-neglect. She reports to us waxing and waning diplopia which resolves with covering each eye. She does have dry eye which contributes to her vision issues. (2) Hypertension: As above, goal SBP < 150. - Continue hydrochlorothiazide, losartan - Amlodipine 5 mg daily started on 08/14 -> BP is overall much improved and usually ~130/70. (3) Right sided weakness: As above. - Physical and Occupational Therapy - Recommended for [facility] -> Hoping to go to [facility]. (4) Hypercholesterolemia: LDL was 99 this admission. Goal after stroke is <70. - Increased atorvastatin to 40 mg HS. (5) Constipation, chronic: No noted issue presently. - Continue Senokot 1 tablet p.o. QDL, continue docusate sodium 100 mg p.o. twice daily. (6) DVT prophylaxis: Lovenox 30mg SQ daily Total Time Total Time Spent Total Time Spent (In Minutes): 35 Discharge Plan Discharge Items Patient Disposition: Transfer Inpatient Rehab Fac Reason For Visit: WORSENING R SIDED WEAKNESS Discharge Diagnosis: Right-sided strokes Activity: Resume your previous activity Non-emergency contact: Primary Care Provider and Neurologist Call non-emergency contact if: your symptoms worsen and your temperature is above 101 Follow-up/Referrals: Missael Baker III, MD [Physician] - (Please see Dr. Baker in 4-6 weeks.) [facility] [Primary Care Provider] - Diet: Heart Healthy Addtl Attending Provider Instructions: Ms. Mann was admitted to the hospital with changing right-sided weakness. She also developed right visual symptoms and right-sided facial droop on the second day of admission. Repeat head CTs showed stable intra-parenchymal hemorrhage from her prior admission at [facility]. MRI brain was obtained on 08/15 which showed 2 other foci of small ischemic strokes: One in the left thalamus & one in the medial left temporal lobe. These strokes explained her symptoms of right- sided loss of strength and sensation as well as her speech and vision issues. By discharge, her speech was improving with less word-finding difficulty and word salad. Her vision appeared stable with less right-sided hemineglect. She reported some diplopia, but this was largely when she had both eyes open. With each eye covered, it resolved. This was thought to be due to right-sided vision issues which are consistent with the stroke. She occasionally noted left-sided diplopia (even with the right eye covered), but this waxed and waned. Neurology didn't think this reflected further stroke and was either dry eye or reflective of the known CVAs. Mild improvement in her right leg strength was seen. Her right arm was still paralyzed however. On discharge, we will continue ASA. She should avoid/not take Plavix indefinitely. Her statin was increased to try to meet an LDL goal of <70. Blood pressure medications were increased as she was quite hypertensive on admission and remained so through the first days of her admission. Her SBP goal is <150 given her intracranial bleeding. Pending Studies at Discharge: No Stand-Alone Forms: [facility] Skilled Items Patient informed of condition?: Yes DNR: No Discharge Level of Care: Acute rehab Communicable Disease: No Discharge Prognosis: Improving Lines: None Urinary Catheter: No Medications and DC Order Prescriptions: New aspirin 81 mg Tablet,Delayed Release (Dr/Ec) 81 mg PO QAM Qty: 1 RF: 0 amlodipine [Norvasc] 5 mg Tablet 5 mg PO HS Qty: 1 RF: 0 Continued latanoprost 0.005 % drops 1 drp OPR HS RF: 0 hydrochlorothiazide 25 mg Tablet 25 mg PO Q12 RF: 0 calcium carbonate-vitamin D3 [Calcium 500 With D] 500 mg(1,250mg) -400 unit Tablet 1 tab PO BID RF: 0 Centrum Silver Women 8 mg iron-400 mcg-300 mcg Tablet 1 tab PO QAM RF: 0 acetaminophen [Tylenol] 325 mg Tablet 325 mg PO Q4H PRN (Reason: Pain) RF: 0 polyethylene glycol 3350 [Miralax] 17 gram Powder In Packet 17 g PO QDL RF: 0 sennosides-docusate sodium [Senokot-S] 8.6-50 mg Tablet 1 tab-cap PO QDL RF: 0 famotidine 20 mg Tablet 20 mg PO Q12 RF: 0 lidocaine [Lidoderm] 5 % Adhesive Patch,Medicated 1 patch TOPICAL QAM RF: 0 nitroglycerin [Nitrostat] 0.4 mg Tablet, Sublingual 0.4 mg sublingual UD RF: 0 docusate sodium [Colace] 100 mg Capsule 100 mg PO BID RF: 0 losartan 100 mg Tablet 100 mg PO HS RF: 0 Ocular Lubricant 1 drp OPB QID RF: 0 Changed atorvastatin 20 mg tablet 40 mg PO HS Qty: 0 RF: 0 Discontinued oseltamivir [Tamiflu] 75 mg Capsule 75 mg PO QDD RF: 0 enoxaparin [Lovenox] 30 mg/0.3 mL Syringe 30 mg SUBCUT Q12H RF: 0 Discharge Orders: Discharge Order (Routine); Ordered 08/19/19 Ordered By: Aris Greene/Other Patient Handouts: A1C Admission Data Admit Date/Time: 08/12/19 19:38 Attending Provider: Aris Magallon Admit Provider: Tor Juarez Primary Care Provider: Aaron Holm Other Providers: Missael Baker III Coding Level of Care Code D/C Day Management >30 mins Diagnoses Acute intra-cranial hemorrhage I62.9 Hypertension I10 Right sided weakness R53.1 Hypercholesterolemia E78.00 Constipation, chronic K59.09 DVT prophylaxis Z29.9
[2019-08-19] MEDS: POLYETHYLENE (MIRALAX) 17 GM PACK PO SCH (12:55)
[2019-08-19] MEDS: DOCUSATE SODIUM/SENNA 50/8.6MG TAB PO SCH (12:55)
[2019-08-19] MEDS: ACETAMINOPHEN 325 MG TAB PO PRN (13:51)
--- NOTE | 2019-11-01 10:44 | Coding Query ---
CODING QUERY To promote full compliance with coding requirements relating to patient care, provider participation is requested in all cases of economic research assistant uncertainty. Please assist us with the question(s) below: Coding Question(s): Please clarify if the patient's current stroke is hemorrhagic __X__ischemic other please specify Physician's Response(s): Thank you Amelia Stack CCS Principal Diagnosis: "that condition established after study, to be chiefly responsible for occasioning the admission of the patient to the hospital for care." Co-Existing Principal Diagnosis: "when two or more diagnoses equally meet the criteria for principal diagnosis as determined by the circumstances of admission, diagnostic work up, and/or therapy provided, and the Alphabetic Index, Tabular List, or another coding guideline does not provide sequencing direction, any one of the diagnoses may be sequenced first." "When the physician has documented what appears to be a current diagnosis in the body of the record, but has not included the diagnosis in the final diagnostic statement, the physician should be asked whether the diagnosis should be added." (Source Coding Clinic 2 QTR90. p3-4) GIANNI
== END 2019-08-19 14:55 | DRG 64 ==
LOC: ED 12:20 → 2S 19:38 → SUATTDRO 19:38 → 2S 20:21

== ENCOUNTER 2022-01-24 11:40 | Inpatient (IN) ==
--- NOTE | 2022-01-24 11:56 | Emergency Department Note ---
Impression & Plan Closed hip fracture, Closed pelvic fracture, Fall ED Provider Note AndNAME: HIWOT CHAPPELL AGE: 81 SEX: F : 1940 ARRIVES VIA: Ambulance INFORMANT: [Patient][ems] ED PROVIDER(S): [Ryan Hernadez MD] CHIEF COMPLAINT: Fall HISTORY OF PRESENT ILLNESS: The patient is a 81-year-old female presents to the ED after falling from her wheelchair while in the bathroom. As per EMS, it appears that the wheel was not locked and the wheelchair moved. The patient fell onto the floor. There was no loss of consciousness. She has no headache or neck pain. She complains of some lower back pain and some right hip pain. The right hip pain is severe at times. Patient takes baby aspirin daily, no other blood thinning medications. The patient had felt in baseline health today before this incident. There has been no cough, cold or congestion. No fever. She is not currently short of breath. There is no chest pain. 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 This is why she was in the wheelchair. REVIEW OF SYSTEMS: See HPI for pertinent positives and negatives. A total of ten systems were reviewed and were otherwise negative. PMHx/PSHx: See Below SOCIAL HISTORY: See Below. PHYSICAL EXAM: GENERAL: Patient is in mild distress from pain. HEENT: No acute trauma, normocephalic atraumatic, mucous membranes moist, no nasal congestion, no scleral icterus. NECK: No stridor, no adenopathy, nontender cervical spine, trachea is midline. LUNGS: Clear to auscultation bilaterally, no wheeze, no rhonchi, breath sounds equal. HEART: Without murmurs gallops or rubs, regular rate and rhythm. ABDOMEN: Soft, nontender, bowel sounds positive, no peritonitis. EXTREMITIES: No cyanosis or edema. The patient's right hip and right knee are both flexed. There is some external rotation to the right lower extremity. She seems painful in the area of the right hip with palpation. The right knee, right tib-fib and right ankle appear nontender. Of note, the patient has limited sensation in the right lower extremity because of her previous CVA. NEUROLOGIC: Oriented x 3. The patient has a contracture to the right upper extremity at the elbow. Minimal movement of the toes of the right lower extremity. SKIN: No rash, no jaundice, no diaphoresis. DIFFERENTIAL DIAGNOSIS: Fracture, dislocation, neurovascular compromise, compartment syndrome, soft tissue injury, as well as other pathologies. EMERGENCY DEPARTMENT COURSE/PROCEDURES: ECG: Indication was fall. The ECG shows a sinus rhythm with PACs and a PVC. The rate is 81. There is an old anterior septal infarct. There are inverted T waves laterally. QTC is 420. Compared to an ECG from 31 August 2020, no significant change. Continuous Cardiac Monitoring: An order was placed for continuous cardiac monitoring. The monitor shows a rate of 82 with sinus rhythm with PACs and PVCs. MEDICAL DECISION MAKING: There is a mild leukocytosis, this could be from infection or just the stress of her fall. There is a normal hemoglobin and platelet count. No coagulopathy. No renal failure. No significant electrolyte abnormality. No concerning liver enzyme elevation. Urinalysis does not show findings of infection. COVID test returned negative. Chest x-ray does not show pneumonia or CHF. Right hip films were done, there was a superior and inferior pubic ramus fracture on the right and a right subcapital hip fracture. The remainder of the femur did not show fractures. The tib-fib did not show any fracture. Of note, the patient did not strike her head in his fall, she had no neck pain. Because of her increasing low back pain, a CT of the lumbar spine was done, no acute lumbar fracture seen. Potential muscular hemorrhage was noted. The patient received IV morphine for pain, IV Zofran for nausea. The patient is in need of a hospital stay. I did speak with her and her family. I spoke with case management. I did speak with Dr. Martinez of orthopedics. The on-call hospitalist was consulted. Patient is more comfortable since receiving pain medication Past Med/Surg History Medical History Carotid artery stenosis follows with Dr. Post Cerebrovascular disease Constipation, chronic Degenerative disc disease Headache frequent Hx of Clostridium difficile infection 2019> resolved HX: breast cancer right > 10 yrs ago> lumpectomy Hypercholesterolemia Hyperlipidemia Hypertension Hypertension Multiple stable closed lateral compression fractures of pelvis Osteoarthritis Spinal stenosis of lumbar region with radiculopathy Stroke 2017> mild > recovered with no effects 2018> more severe > now in wheelchair right side weakness, right eye vision effected no longer follows with neuro Surgical History History of colonoscopy History of dilatation and curettage x2 History of esophagogastroduodenoscopy (EGD) History of lumpectomy of right breast History of open heart surgery 30 yrs ago > PFO closure History of tooth extraction S/P tonsillectomy S/P trigger finger release bilat hands Family History Mother , age 72 with heart and lung issues Heart disease Father , age 77 with stroke Stroke Other A-fib Social History Smoking Status: Never smoker Second Hand Exposure: Yes (as kid dad smoked and 1st ); Hx Alcohol Use: No Hx Substance Use: No Preferred Language: Burkinan Communication Ability: Effective Stars Specialist Required: No Beliefs That Will Affect Care: None Current Living Situation: Alone current occupational status: retired 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 [employer] Safe at Home: Yes Assistive Devices: Glasses Allergies Allergies Allergy/AdvReac Type Severity Reaction Status Date / Time latex Allergy Intermediate RASH Verified 01/24/22 15:24 Home Meds Home Medications Medication Instructions Recorded Confirmed calcium carbonate 500 mg-vitamin 1 tab PO BID 08/03/19 01/24/22 D3 10 mcg (400 unit) tablet (Calcium 500 With D) nitroglycerin 0.4 mg sublingual 0.4 mg sublingual UD 08/12/19 01/24/22 tablet (Nitrostat) acetaminophen 325 mg tablet 500 mg PO AMPM 10/31/19 01/24/22 (Tylenol) amlodipine 10 mg tablet 10 mg PO QAM 10/31/19 01/24/22 atorvastatin 40 mg tablet 40 mg PO QPM 10/31/19 01/24/22 hydrochlorothiazide 25 mg tablet 25 mg PO QAM 10/31/19 01/24/22 metaxalone 400 mg tablet 400 mg PO BID 10/31/19 01/24/22 potassium chloride 20 mEq 40 meq PO BID 10/31/19 01/24/22 tablet,extended release sertraline 25 mg tablet (Zoloft) 25 mg PO QAM 10/31/19 01/24/22 aspirin 81 mg tablet,delayed 81 mg PO QAM 08/31/20 01/24/22 release dorzolamide 22.3 mg-timolol 6.8 1 drp [facility]–1983 08/31/20 01/24/22 mg/mL eye drops losartan 100 mg tablet 100 mg PO QPM 08/31/20 01/24/22 magnesium oxide 400 mg PO QA 03/29/21 01/24/22 famotidine 40 mg tablet 40 mg PO BID 01/24/22 01/24/22 metoprolol succinate 50 mg 50 mg PO DAILY 01/24/22 01/24/22 tablet,extended release 24 hr Results & Data (ED) Vital Signs Vital Signs - 24 hr 01/24/22 11:44 01/24/22 13:35 01/24/22 14:02 Temperature 36.8 C Temperature Source Oral Pulse Rate 85 Pulse Rate [Apical] 82 Pulse Rhythm Regular Pulse Rhythm [Apical] Regular Pulse Strength Normal Pulse Strength [Apical] Normal Respiratory Rate 20 16 Respiratory Effort / Characteristics Non-Labored Spontaneous Non-Labored Spontaneous Respiratory Depth Normal Normal Respiratory Pattern Regular Blood Pressure 147/70 H Blood Pressure [Left Arm] 131/67 Blood Pressure Mean 95 Blood Pressure Mean [Left Arm] 88 Blood Pressure Position Sitting Pulse Oximetry 87 L 96 96 Oxygen Delivery Method Room Air Nasal Cannula Nasal Cannula Oxygen Flow Rate 3 3 Sepsis Recent Fever Within 48 Hours No Sepsis New/Unexplained Change in Mental Status N/A Sepsis Action Taken by Nursing No Action Required Home Medications Current Medication List: was personally reviewed by me Laboratory Data Attestation: I reviewed the patient's lab results. Result diagrams: 01/24/22 12:07 01/24/22 12:07 Lab Results 01/24/22 01/24/22 01/24/22 Range/Units 12:07 12:07 12:07 WBC 11.14 H (4.8-10.8) K/ul RBC 4.48 (3.93-5.22) M/uL Hgb 14.6 (12.0-16.0) g/dl Hct 43.5 (34.1-44.9) % MCV 97.1 (80.0-100.0) fL MCH 32.6 (25.0-34.0) pg MCHC 33.6 (32.0-36.0) g/dL RDW Std Deviation 46.4 H (36.4-46.3) fL RDW Coeff of Joseph 13.0 (11.5-14.5) % Plt Count 178 (130-400) K/uL MPV 10.1 (9.4-12.3) fL Immature Gran % (Auto) 1.6 % Neut % (Auto) 82.8 % Lymph % (Auto) 7.5 % Glades % (Auto) 6.7 % Eos % (Auto) 1.0 % Baso % (Auto) 0.4 % Neut # (Auto) 9.22 H (1.4-6.5) K/uL Lymph # (Auto) 0.84 L (1.2-3.4) K/uL Glades # (Auto) 0.75 (0.24-0.82) K/uL Eos # (Auto) 0.11 (0-0.50) K/uL Baso # (Auto) 0.04 (0-0.2) K/uL Immature Gran # (Auto) 0.18 H (0.00-0.02) K/uL PT 10.7 (9.0-12.0) Seconds INR 1.0 (0.9-1.1) APTT 24.9 (21.0-31.0) Seconds PTT Ratio 0.9 Sodium 138 (136-145) mmol/L Potassium 4.2 (3.5-5.1) mmol/L Chloride 102 (98-107) mmol/L Carbon Dioxide 28 (21-32) mmol/L Anion Gap 8 (3-11) BUN 18 (6-23) mg/dl Creatinine 0.72 (0.6-1.2) mg/dl Est Cr Clr Drug Dosing 65.3 ml/min Est GFR ( Amer) 92.3 ml/min Est GFR (Non-Af Amer) 79.7 ml/min BUN/Creatinine Ratio 25.0 H (10-20) Glucose 123 H (70-99(Fasting)) mg/dl Calcium 9.9 (8.5-10.1) mg/dl Total Bilirubin 0.7 (0.2-1.0) mg/dl AST 25 (13-39) U/L ALT 21 (7-52) U/L Alkaline Phosphatase 61 (34-104) U/L Total Protein 6.7 (6.0-8.3) gm/dl Albumin 4.2 (3.4-5.0) gm/dl Globulin 2.5 (2.5-4.0) gm/dl Albumin/Globulin Ratio 1.7 (0.9-2) Urine Color Urine Appearance (Clear) Urine pH (4.5-7.5) Ur Specific Milton (1.000-1.030) Urine Protein (Negative) Urine Glucose (UA) (Negative) Urine Ketones (Negative) Urine Blood (Negative) Urine Nitrite (Negative) Urine Bilirubin (Negative) Urine Urobilinogen (Negative) Ur Leukocyte Esterase (Negative) SARS-CoV-2, RNA, NAAT (NEGATIVE) 01/24/22 01/24/22 Range/Units 12:07 13:45 WBC (4.8-10.8) K/ul RBC (3.93-5.22) M/uL Hgb (12.0-16.0) g/dl Hct (34.1-44.9) % MCV (80.0-100.0) fL MCH (25.0-34.0) pg MCHC (32.0-36.0) g/dL RDW Std Deviation (36.4-46.3) fL RDW Coeff of Joseph (11.5-14.5) % Plt Count (130-400) K/uL MPV (9.4-12.3) fL Immature Gran % (Auto) % Neut % (Auto) % Lymph % (Auto) % Glades % (Auto) % Eos % (Auto) % Baso % (Auto) % Neut # (Auto) (1.4-6.5) K/uL Lymph # (Auto) (1.2-3.4) K/uL Glades # (Auto) (0.24-0.82) K/uL Eos # (Auto) (0-0.50) K/uL Baso # (Auto) (0-0.2) K/uL Immature Gran # (Auto) (0.00-0.02) K/uL PT (9.0-12.0) Seconds INR (0.9-1.1) APTT (21.0-31.0) Seconds PTT Ratio Sodium (136-145) mmol/L Potassium (3.5-5.1) mmol/L Chloride (98-107) mmol/L Carbon Dioxide (21-32) mmol/L Anion Gap (3-11) BUN (6-23) mg/dl Creatinine (0.6-1.2) mg/dl Est Cr Clr Drug Dosing ml/min Est GFR ( Amer) ml/min Est GFR (Non-Af Amer) ml/min BUN/Creatinine Ratio (10-20) Glucose (70-99(Fasting)) mg/dl Calcium (8.5-10.1) mg/dl Total Bilirubin (0.2-1.0) mg/dl AST (13-39) U/L ALT (7-52) U/L Alkaline Phosphatase (34-104) U/L Total Protein (6.0-8.3) gm/dl Albumin (3.4-5.0) gm/dl Globulin (2.5-4.0) gm/dl Albumin/Globulin Ratio (0.9-2) Urine Color Yellow Urine Appearance Clear (Clear) Urine pH 6.5 (4.5-7.5) Ur Specific [place] 1.014 (1.000-1.030) Urine Protein Negative (Negative) Urine Glucose (UA) Negative (Negative) Urine Ketones Negative (Negative) Urine Blood Negative (Negative) Urine Nitrite Negative (Negative) Urine Bilirubin Negative (Negative) Urine Urobilinogen Negative (Negative) Ur Leukocyte Esterase Negative (Negative) SARS-CoV-2, RNA, NAAT NEGATIVE (NEGATIVE) Administered Medications Discontinued Medications Morphine Sulfate (Morphine Sulfate 4 Mg/Ml 1 Ml Carp\Vial) 4 mg IV Q30M PRN PRN Reason: Severe Pain (Rating 7,8,9,10) Stop: 02/07/22 11:47 Last Admin: 01/24/22 13:35 Dose: 4 mg Documented By: Admin: 01/24/22 12:12 Dose: 4 mg Documented By: HERMELINDO Ondansetron HCl (Ondansetron Inj 2 Mg/Ml 2 Ml Vial) Confirm Administered Dose 4 mg .ROUTE .STK-MED ONE Stop: 01/24/22 12:05 Last Admin: 01/24/22 12:14 Dose: Not Given Documented By: HERMELINDO Ondansetron HCl (Ondansetron Inj 2 Mg/Ml 2 Ml Vial) 4 mg IV NOW STA Stop: 01/24/22 12:10 Last Admin: 01/24/22 12:12 Dose: 4 mg Documented By: [facility] Imaging Data Radiologist's Impression: Femur X-Ray 01/24/22 11:48 XR femur RT 2V routine, XR hip RT 2V w pelvis, XR tibia fibula RT 2V HISTORY: 81 years-old Female fall, pain acute pain of the pelvis and right lower extremity status post fall COMPARISON: CT lumbar spine of same day TECHNIQUE: AP view of the pelvis with 2 views the right femur, 2 views the right femur with 2 views of the right tibia and fibula FINDINGS: PELVIS/RIGHT HIP: Demineralized appearance of the bones. There is moderate osteoarthritis of the hips. There is an acute complete transcervical fracture of the right femoral neck which demonstrates several millimeters of impaction with apex superior angulation and superolateral displacement of approximately 1.9 cm. Study is limited secondary to patient rotation. Acute fractures of the right superior and inferior pubic rami with associated cortical buckling. Equivocal acute nondisplaced fracture of the left inferior pubic ramus. The right sacral alar fracture is better seen on the CT study of same day. FEMUR: Study limited secondary to positioning. No additional acute fracture or dislocation identified. [place]mpartmental osteoarthritis of the knee. Arterial calcifications. TIBIA/FIBULA: Arterial calcifications. Mild diffuse soft tissue prominence of the lower leg. No acute fracture, dislocation or opaque foreign body identified. Chondrocalcinosis of the knee. IMPRESSION: 1. Limited exam secondary to positioning. 2. Acute transcervical fracture of the right femoral neck with impaction, angulation and displacement. 3. Acute fractures of the right superior and inferior pubic rami without significant displacement. 4. Equivocal acute nondisplaced fracture of the left inferior pubic ramus. 5. No acute fracture or dislocation of the right tibia or fibula. ACT 112: Negative or not required by law. The above report was generated using voice recognition software. It may contain grammatical, syntax or spelling errors. Electronically signed by: Prabhakar Ruiz M.D. 01/24/2022 1:54 PM Hip/Pelvis X-Ray 01/24/22 11:48 XR femur RT 2V routine, XR hip RT 2V w pelvis, XR tibia fibula RT 2V HISTORY: 81 years-old Female fall, pain acute pain of the pelvis and right lower extremity status post fall COMPARISON: CT lumbar spine of same day TECHNIQUE: AP view of the pelvis with 2 views the right femur, 2 views the right femur with 2 views of the right tibia and fibula FINDINGS: PELVIS/RIGHT HIP: Demineralized appearance of the bones. There is moderate osteoarthritis of the hips. There is an acute complete transcervical fracture of the right femoral neck which demonstrates several millimeters of impaction with apex superior angulation and superolateral displacement of approximately 1.9 cm. Study is limited secondary to patient rotation. Acute fractures of the right superior and inferior pubic rami with associated cortical buckling. Equivocal acute nondis placed fracture of the left inferior pubic ramus. The right sacral alar fracture is better seen on the CT study of same day. FEMUR: Study limited secondary to positioning. No additional acute fracture or dislocation identified. [place]mpartmental osteoarthritis of the knee. Arterial calcifications. TIBIA/FIBULA: Arterial calcifications. Mild diffuse soft tissue prominence of the lower leg. No acute fracture, dislocation or opaque foreign body identified. Chondrocalcinosis of the knee. IMPRESSION: 1. Limited exam secondary to positioning. 2. Acute transcervical fracture of the right femoral neck with impaction, angulation and displacement. 3. Acute fractures of the right superior and inferior pubic rami without significant displacement. 4. Equivocal acute nondisplaced fracture of the left inferior pubic ramus. 5. No acute fracture or dislocation of the right tibia or fibula. ACT 112: Negative or not required by law. The above report was generated using voice recognition software. It may contain grammatical, syntax or spelling errors. Electronically signed by: Prabhakar Ruiz M.D. 01/24/2022 1:[address] 01/24/22 11:48 CT OF THE LUMBAR SPINE CLINICAL HISTORY: Low back pain following fall. COMPARISON STUDY: Lumbar spine radiographs August 28, 2020. TECHNIQUE: Helical axial images of the lumbar spine were obtained. Sagittal and coronal reconstructions were viewed. Automated exposure control was utilized for the study. A dose lowering technique was utilized adhering to the principles of ALARA. FINDINGS: Director Strategy image demonstrates a displaced right femoral neck fracture. For purposes of numbering on this exam, the L5-S1 disc space is assigned to axial image 291 of 354. Moderate L4 compression fracture is noted with 50% loss of vertebral body height. This was shown on radiographs of August 18, 2020. Slight loss of height of the superior endplate of T12 is also unchanged. No acute lumbar spine fracture is noted. Note is made of a right sacral ala fracture. Although age indeterminate, this is likely subacute to chronic. Severe multilevel facet arthrosis is noted. There is moderate multilevel degenerative disc disease, most pronounced at L5-S1. Central canal and neural foramen are suboptimally assessed given CT technique. Asymmetric prominence of the right iliacus muscle is noted. There may be minimal stranding. IMPRESSION: 1. No acute lumbar spine fracture or subluxation. 2. Displaced right femoral neck fracture. 3. Old T12 and L4 compression fractures. 4. Subacute to chronic right sacral ala fracture. 5. Asymmetric prominence of the right iliacus muscle. Intramuscular hemorrhage would be difficult to exclude. ACT 112: Negative or not required by law. Electronically signed by: Jabari Dubois M.D. 01/24/2022 12:45 PM Tibia/Fibula X-Ray 01/24/22 11:48 XR femur RT 2V routine, XR hip RT 2V w pelvis, XR tibia fibula RT 2V HISTORY: 81 years-old Female fall, pain acute pain of the pelvis and right lower extremity status post fall COMPARISON: CT lumbar spine of same day TECHNIQUE: AP view of the pelvis with 2 views the right femur, 2 views the right femur with 2 views of the right tibia and fibula FINDINGS: PELVIS/RIGHT HIP: Demineralized appearance of the bones. There is moderate osteoarthritis of the hips. There is an acute complete transcervical fracture of the right femoral neck which demonstrates several millimeters of impaction with apex superior angulation and superolateral displacement of approximately 1.9 cm. Study is limited secondary to patient rotation. Acute fractures of the right superior and inferior pubic rami with associated cortical buckling. Equivocal acute nondisplaced fracture of the left inferior pubic ramus. The right sacral alar fracture is better seen on the CT study of same day. FEMUR: Study limited secondary to positioning. No additional acute fracture or dislocation identified. [place]mpartmental osteoarthritis of the knee. Arterial calcifications. TIBIA/FIBULA: Arterial calcifications. Mild diffuse soft tissue prominence of the lower leg. No acute fracture, dislocation or opaque foreign body identified. Chondro calcinosis of the knee. IMPRESSION: 1. Limited exam secondary to positioning. 2. Acute transcervical fracture of the right femoral neck with impaction, angulation and displacement. 3. Acute fractures of the right superior and inferior pubic rami without significant displacement. 4. Equivocal acute nondisplaced fracture of the left inferior pubic ramus. 5. No acute fracture or dislocation of the right tibia or fibula. ACT 112: Negative or not required by law. The above report was generated using voice recognition software. It may contain grammatical, syntax or spelling errors. Electronically signed by: Prabhakar Ruiz M.D. 01/24/2022 1:54 PM Chest X-Ray 01/24/22 11:50 XR chest 1V not portable CLINICAL HISTORY: fall, hypoxia COMPARISON STUDY: Chest radiograph August 31, 2020. FINDINGS: Median sternotomy wires and mediastinal surgical clips are present. Right axillary surgical clips are noted. Lung volumes are normal. Lungs are clear. There is no pneumothorax or pleural effusion. Cardiac size is stable. Mediastinal contours are normal. There is no evidence for pulmonary edema. IMPRESSION: No acute cardiopulmonary findings. ACT 112: Negative or not required by law. Electronically signed by: Jabari Dubois M.D. 01/24/2022 1:43 PM Discharge Plan Visit Data Chief Complaint: Fall Stated Complaint: fall ED Provider: Ryan Hernadez Discharge Problem: Closed hip fracture, Closed pelvic fracture, Fall Patient Disposition: Admitted As Inpatient Condition: Fair Discharge Instructions Interventions: ED Discharge Assessment Last Done: 01/24/22 16:30
[2022-01-24] MEDS ORDERED: ONDANSETRON INJ 2 MG/ML 2 ML VIAL ONE (12:04)
[2022-01-24] MEDS ORDERED: ONDANSETRON INJ 2 MG/ML 2 ML VIAL IV STA (12:09)
[2022-01-24] MEDS: MoRPHine SULFATE 4 MG/ML 1 ML CARP\\VIAL IV PRN ×2 (12:12→13:35)
[2022-01-24 12:28] LABS: Basophils # (auto) 0.04 K/uL (0-0.2); Basophils % (auto) 0.4 %; Eosinophils # (auto) 0.11 K/uL (0-0.50); Hematocrit (blood only) 43.5 % (34.1-44.9); Hemoglobin 14.6 g/dl (12.0-16.0); Immature Granulocytes # (auto) 0.18 K/uL (0.00-0.02); Immature Granulocytes % (auto) 1.6 %; Lymphocytes # (auto) 0.84 K/uL (1.2-3.4); Lymphocytes % (auto) 7.5 %; Mean Corpuscular Hemoglobin 32.6 pg (25.0-34.0); Mean Corpuscular Hgb Conc 33.6 g/dL (32.0-36.0); Mean Corpuscular Volume 97.1 fL (80.0-100.0); Mean Platelet Volume 10.1 fL (9.4-12.3); Monocytes # (auto) 0.75 K/uL (0.24-0.82); Monocytes % (auto) 6.7 %; Neutrophils # (auto) 9.22 K/uL (1.4-6.5); Neutrophils % (auto) 82.8 %; Platelet Count 178 K/uL (130-400); RDW Standard Deviation 46.4 fL (36.4-46.3); Red Blood Count 4.48 M/uL (3.93-5.22); White Blood Count 11.14 K/ul (4.8-10.8)
[2022-01-24 12:39] LABS: Partial Thromboplastin Ratio 0.9; Partial Thromboplastin Time 24.9 Seconds (21.0-31.0); Prothrombin Time 10.7 Seconds (9.0-12.0)
--- NOTE | 2022-01-24 12:48 | CT Scan Report ---
CT OF THE LUMBAR SPINE CLINICAL HISTORY: Low back pain following fall. COMPARISON STUDY: Lumbar spine radiographs August 28, 2020. TECHNIQUE: Helical axial images of the lumbar spine were obtained. Sagittal and coronal reconstruct ions were viewed. Automated exposure control was utilized for the study. A dose lowering technique was utilized adhering to the principles of ALARA. FINDINGS: Master Pilot image demonstrates a displaced right femoral neck fracture. For purposes of numbering on this exam, the L5-S1 disc space is assigned to axial image 291 of 354. Moderate L4 compression fr acture is noted with 50% loss of vertebral body height. This was shown on radiographs of August 18 1. Slight loss of height of the superior endplate of T12 is also unchanged. No acute lumbar spine fra cture is noted. Note is made of a right sacral ala fracture. Although age indeterminate, this is like ly subacute to chronic. Severe multilevel facet arthrosis is noted. There is moderate multilevel dege nerative disc disease, most pronounced at L5-S1. Central canal and neural foramen are suboptimally as sessed given CT technique. Asymmetric prominence of the right iliacus muscle is noted. There may be m inimal stranding. IMPRESSION: 1. No acute lumbar spine fracture or subluxation. 2. Displaced right femoral neck fracture. 3. Old T12 and L4 compression fractures. 4. Subacute to chronic right sacral ala fracture. 5. Asymmetric prominence of the right iliacus muscle. Intramuscular hemorrhage would be difficult to exclude. ACT 112: Negative or not required by law. Electronically signed by: Jabari Dubois M.D. 01/24/2022 12:45 PM
[2022-01-24 12:50] LABS: Albumin Globulin Ratio 1.7 (0.9-2); Albumin Level 4.2 gm/dl (3.4-5.0); Bilirubin,Total 0.7 mg/dl (0.2-1.0); Calcium 9.9 mg/dl (8.5-10.1); Creatinine Clr Calc Pharmacy 65.3 ml/min; Est GFR (African American) 92.3 ml/min; Est GFR (Non-African American) 79.7 ml/min; Globulin 2.5 gm/dl (2.5-4.0); Potassium 4.2 mmol/L (3.5-5.1); Total Protein 6.7 gm/dl (6.0-8.3)
--- NOTE | 2022-01-24 13:44 | XRay Report ---
XR chest 1V not portable CLINICAL HISTORY: fall, hypoxia COMPARISON STUDY: Chest radiograph August 31, 2020. FINDINGS: Median sternotomy wires and mediastinal surgical clips are present. Right axillary surgical clips are noted. Lung volumes are normal. Lungs are clear. There is no pneumothorax or pleural effus ion. Cardiac size is stable. Mediastinal contours are normal. There is no evidence for pulmonary jh a. IMPRESSION: No acute cardiopulmonary findings. ACT 112: Negative or not required by law. Electronically signed by: Jabari Dubois M.D. 01/24/2022 1:43 PM
[2022-01-24 13:54] LABS: Appearance Urine Clear (Clear); Bilirubin Urine Negative (Negative); Blood Urine Negative (Negative); Color Urine Yellow; Glucose Urine UA Negative (Negative); Ketones Urine Negative (Negative); Leukocyte Esterase Urine Negative (Negative); Nitrite Urine Negative (Negative); Protein Urine Negative (Negative); Specific Gravity Urine 1.014 (1.000-1.030); Urobilinogen Urine Negative (Negative); pH Urine 6.5 (4.5-7.5)
--- NOTE | 2022-01-24 13:56 | XRay Report ---
XR femur RT 2V routine, XR hip RT 2V w pelvis, XR tibia fibula RT 2V HISTORY: 81 years-old Female fall, pain acute pain of the pelvis and right lower extremity status po st fall COMPARISON: CT lumbar spine of same day TECHNIQUE: AP view of the pelvis with 2 views the right femur, 2 views the right femur with 2 views o f the right tibia and fibula FINDINGS: PELVIS/RIGHT HIP: Demineralized appearance of the bones. There is moderate osteoarthritis of the hips. There is an acut e complete transcervical fracture of the right femoral neck which demonstrates several millimeters of impaction with apex superior angulation and superolateral displacement of approximately 1.9 cm. Stud y is limited secondary to patient rotation. Acute fractures of the right superior and inferior pubic rami with associated cortical buckling. Equivocal acute nondisplaced fracture of the left inferior pu bic ramus. The right sacral alar fracture is better seen on the CT study of same day. FEMUR: Study limited secondary to positioning. No additional acute fracture or dislocation identified. [place] mpartmental osteoarthritis of the knee. Arterial calcifications. TIBIA/FIBULA: Arterial calcifications. Mild diffuse soft tissue prominence of the lower leg. No acute fracture, dis location or opaque foreign body identified. Chondrocalcinosis of the knee. IMPRESSION: 1. Limited exam secondary to positioning. 2. Acute transcervical fracture of the right femoral neck with impaction, angulation and displacement . 3. Acute fractures of the right superior and inferior pubic rami without significant displacement. 4. Equivocal acute nondisplaced fracture of the left inferior pubic ramus. 5. No acute fracture or dislocation of the right tibia or fibula. ACT 112: Negative or not required by law. The above report was generated using voice recognition software. It may contain grammatical, syntax o r spelling errors. Electronically signed by: Prabhakar Ruiz M.D. 01/24/2022 1:54 PM
--- NOTE | 2022-01-24 14:09 | Electrocardiogram Report ---
Test Reason : Blood Pressure : / mmHG Vent. Rate : 081 BPM Atrial Rate : 081 BPM P-R Int : 150 ms QRS Dur : 090 ms QT Int : 362 ms P-R-T Axes : 006 099 249 degrees QTc Int : 420 ms Sinus rhythm with Premature supraventricular complexes and with occasional Premature ventricular comp lexes Rightward axis Anteroseptal infarct (cited on or before 24-JAN-2022) Abnormal ECG When compared with ECG of 31-AUG-2020 15:48, No significant change Confirmed by Tonio Hill ([id number]) on 01/24/2022 2:08:47 PM Referred By: REFERRED SELF Confirmed By:Tonio Hill
--- NOTE | 2022-01-24 14:37 | History & Physical Report ---
Date of Service January 24, 2022 Assessment & Plan (1) Closed right hip fracture: Plan: Due to mechanical fall without concern for underlying issue. - Non-weightbearing - Orthopedics consulted - Acetaminophen standing - Pain control PRN - NPO @ midnight (2) Acute intra-cranial hemorrhage: Plan: Admitted to [facility] NSGY service from 08/03/2019 to 08/07/2019 for an intracranial hemorrhage that was treated conservatively with BP control. - Hold ASA pending surgery - Continue statin (3) Hypertension: Plan: On fairly substantial BP regimen which she confirmed to me in the ER. - Continue home amlodipine, losartan, & metoprolol - Hold home HCTZ pending surgery (4) Hypercholesterolemia: Plan: - Continue statin as above (5) DVT prophylaxis: Plan: SCDs - Hold heparin until after orthopedic evaluation and possible surgery History of Present Illness Primary Care Provider: Manolo Toussaint DO 81yo F w/ hx of intracranial hemorrhage in 2019 with residual right-sided weakness who presents with a right hip fracture after a mechanical fall. The patient reports she was in her normal state of health over the past few days and today. She is wheelchair-bound due to her hemorrhagic stroke in 2019, and she was transitioning into her wheelchair today when the wheelchair slipped out from under her and she fell on her right side. She reports she believed the wheelchair was locked, but that it apparently was not as it rolled out from under her. She reports that she did not have any prodrome symptoms such as lightheadedness, dizziness, chest pain, palpitations, shortness of breath, or other. She does not believe she struck her head or had any loss of consciousness. Allergies Allergy/AdvReac Type Severity Reaction Status Date / Time latex Allergy Intermediate RASH Verified 04/12/21 14:26 Home Medications Medication Instructions Recorded Confirmed Type calcium carbonate 500 mg-vitamin 1 tab PO BID 08/03/19 04/12/21 History D3 10 mcg (400 unit) tablet (Calcium 500 With D) nitroglycerin 0.4 mg sublingual 0.4 mg sublingual UD 08/12/19 04/12/21 History tablet (Nitrostat) acetaminophen 325 mg tablet 500 mg PO AMPM 10/31/19 04/12/21 History (Tylenol) amlodipine 10 mg tablet 10 mg PO QAM 10/31/19 04/12/21 History atorvastatin 40 mg tablet 40 mg PO QPM 10/31/19 04/12/21 History hydrochlorothiazide 25 mg tablet 12.5 mg PO QAM 10/31/19 04/12/21 History metaxalone 400 mg tablet 400 mg PO BID 10/31/19 04/12/21 History potassium chloride 20 mEq 40 meq PO BID 10/31/19 04/12/21 History tablet,extended release sertraline 25 mg tablet (Zoloft) 25 mg PO QAM 10/31/19 04/12/21 History aspirin 81 mg tablet,delayed 81 mg PO QAM 08/31/20 04/12/21 History release dorzolamide 22.3 mg-timolol 6.8 1 drp OPB BID 08/31/20 04/12/21 History mg/mL eye drops losartan 100 mg tablet 100 mg PO QPM 08/31/20 04/12/21 History magnesium oxide 400 mg PO QAM 03/29/21 04/12/21 History metoprolol succinate 25 mg 25 mg PO HS 03/29/21 04/12/21 History tablet,extended release 24 hr Past Med/Surg History Medical History Carotid artery stenosis follows with Dr. Post Cerebrovascular disease Constipation, chronic Degenerative disc disease Headache frequent Hx of Clostridium difficile infection 2019> resolved HX: breast cancer right > 10 yrs ago> lumpectomy Hypercholesterolemia Hyperlipidemia Hypertension Hypertension Osteoarthritis Spinal stenosis of lumbar region with radiculopathy Stroke 2017> mild > recovered with no effects 2018> more severe > now in wheelchair right side weakness, right eye vision effected no longer follows with neuro Surgical History History of colonoscopy History of dilatation and curettage x2 History of esophagogastroduodenoscopy (EGD) History of lumpectomy of right breast History of open heart surgery 30 yrs ago > PFO closure History of tooth extraction S/P tonsillectomy S/P trigger finger release bilat hands Family History Mother , age 72 with heart and lung issues Heart disease Father , age 77 with stroke Stroke Other A-fib Social History Smoking Status: Never smoker Second Hand Exposure: Yes (as kid dad smoked and 1st ); Hx Alcohol Use: Yes Alcohol type: beer, wine and hard liquor Alcohol Intake Frequency Comment: Two or 3 every couple of months. 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 [employer] Feels Safe at Home: Yes Assistive Devices: Glasses, Walker and Wheelchair Review of Systems Review of Systems: All systems reviewed & are unremarkable except as noted in HPI & below Physical Exam Constitutional: WD/WN, vitals as above Eyes: EOM intact bilaterally; no conjunctival abnormality ENMT: external ear and nose normal, oropharynx normal Neck: trachea midline, no thyromegaly normal visual inspection Respiratory: normal respiratory effort, lungs clear to auscultation no respiratory distress Cardiovascular: RRR, no murmur, no edema Gastrointestinal (Abdomen): Inspection/Auscultation: abdomen normal to inspection; abdomen not distended Musculoskeletal: Hip: + hip abnormal to inpsection (Right hip flexed and painful) Skin: no rashes, warm and dry Neurologic: moves all extremities and awake Psychiatric: Orientation: alert, oriented to person and cooperative Results & Data Results & Data ([facility]) Vital Signs (Past 12 Hours) Vital Signs Temp Pulse Pulse Resp BP BP Pulse Ox 01/24/22 14:02 96 01/24/22 13:35 82 16 131/67 96 01/24/22 11:44 36.8 C 85 20 147/70 H 87 L O2 Del Method O2 Flow Rate 01/24/22 14:02 Nasal Cannula 3 01/24/22 13:35 Nasal Cannula 3 01/24/22 11:44 Room Air Code Status & VTE Plan VTE Prophylaxis Plan VTE Prophylaxis will be ordered: Yes PG Care Time/CCT Total # of Minutes Spent Total Time Spent with Patient: Total time spent is greater than 50% in coordination of care (as documented) at patient's floor/unit and/or counseling patient: Coding Level of Care Code 61649 Initial Inpt Care Lvl 3 Diagnoses Closed right hip fracture S72.001A Acute intra-cranial hemorrhage I62.9 Hypertension I10 Hypercholesterolemia E78.00 DVT prophylaxis Z29.9
[2022-01-24] MEDS ORDERED: MoRPHine SULFATE 4 MG/ML 1 ML CARP\\VIAL IV PRN (16:56)
[2022-01-24] MEDS ORDERED: METAXALONE 800 MG TABLET PO PRN (16:56)
[2022-01-24] MEDS ORDERED: ONDANSETRON INJ 2 MG/ML 2 ML VIAL IV PRN (16:56)
--- NOTE | 2022-01-24 16:57 | Anesthesiology Consultation ---
Date of Service January 24, 2022 Assessment & Plan (1) Encounter for pre-operative examination: Chart Review Chart Review: Acceptable Risk for Surgery and Patient NOT seen in Pre Admission Testing History Surgery Operation Date: 01/25/22 09:00 Proposed Procedures p Right Cemented Bipolar Hip - Leland Martinez MD Height/Weight Height: 5 ft 5 in Weight: 77.8 kg Allergies Allergy/AdvReac Type Severity Reaction Status Date / Time latex Allergy Intermediate RASH Verified 01/24/22 15:24 Medications Home Medications Medication Instructions Recorded Confirmed Last Taken calcium carbonate 500 mg-vitamin 1 tab PO BID 08/03/19 01/24/22 04/12/21 D3 10 mcg (400 unit) tablet (Calcium 500 With D) nitroglycerin 0.4 mg sublingual 0.4 mg sublingual UD 08/12/19 01/24/22 Unknown tablet (Nitrostat) acetaminophen 325 mg tablet 500 mg PO AMPM 10/31/19 01/24/22 04/12/21 (Tylenol) amlodipine 10 mg tablet 10 mg PO QAM 10/31/19 01/24/22 04/12/21 atorvastatin 40 mg tablet 40 mg PO QPM 10/31/19 01/24/22 04/11/21 hydrochlorothiazide 25 mg tablet 25 mg PO QAM 10/31/19 01/24/22 04/12/21 metaxalone 400 mg tablet 400 mg PO BID 10/31/19 01/24/22 04/12/21 potassium chloride 20 mEq 40 meq PO BID 10/31/19 01/24/22 04/12/21 tablet,extended release sertraline 25 mg tablet (Zoloft) 25 mg PO QAM 10/31/19 01/24/22 04/12/21 aspirin 81 mg tablet,delayed 81 mg PO QAM 08/31/20 01/24/22 04/12/21 release dorzolamide 22.3 mg-timolol 6.8 1 drp OPB QAM 08/31/20 01/24/22 04/12/21 mg/mL eye drops losartan 100 mg tablet 100 mg PO QPM 08/31/20 01/24/22 04/11/21 magnesium oxide 400 mg PO QAM 03/29/21 01/24/22 04/12/21 famotidine 40 mg tablet 40 mg PO BID 01/24/22 01/24/22 Unknown metoprolol succinate 50 mg 50 mg PO DAILY 01/24/22 01/24/22 Unknown tablet,extended release 24 hr Past Medical History Medical History Carotid artery stenosis follows with Dr. Post Cerebrovascular disease Constipation, chronic Degenerative disc disease Headache frequent Hx of Clostridium difficile infection 2019> resolved HX: breast cancer right > 10 yrs ago> lumpectomy Hypercholesterolemia Hyperlipidemia Hypertension Hypertension Osteoarthritis Spinal stenosis of lumbar region with radiculopathy Stroke 2016> mild > recovered with no effects 2018> more severe > now in wheelchair right side weakness, right eye vision effected no longer follows with neuro Hx/o intra-cranial hemorrhage that was treated conservatively with better BP control. Patient takes baby aspirin daily, no other blood thinning medications. 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 She recovered from this but apparently was not left on Plavix alone (that we recommended back in September of 2016) and continued to take aspirin plus Plavix over time. She had a spontaneous 2 centimeter left basal ganglia intercerebral hemorrhage August 03 and the aspirin and Plavix were stopped. She also had significant hypertension at the time which has been better controlled. The right-sided weakness she had from this event August 03 was improving while she was at [facility]. On August 11 she had acute increase in right arm greater than leg and face w eakness with some speech issues. CT scan showed less hemorrhage but some more surrounding edema of uncertain etiology. On August 13, she was worse than previous, with a significant right homonymous hemianopsia, increased weakness of the right face arm and leg (plegia), and some right hemisensory issues including neglect. Interestingly, her motor speech problem was improved. CTA of the head and CT head from August 13 show a pattern of decreasing hemorrhage and a more clear patchy left middle cerebral artery territory infarct. There is no clear evidence of actual edema on CT scans (probably never was edema but always was stroke). MRI of the brain August 15 shows medium-sized stroke involving the left thalamus (explains sensory and motor deficits) as well as the medial left temporal lobe (which likely explains speech in vision, although the speech is improved). Past Family History Family History Mother , age 72 with heart and lung issues Heart disease Father , age 77 with stroke Stroke Other A-fib Past Surgical History Surgical History History of colonoscopy History of dilatation and curettage x2 History of esophagogastroduodenoscopy (EGD) History of lumpectomy of right breast History of open heart surgery 30 yrs ago > PFO closure History of tooth extraction S/P tonsillectomy S/P trigger finger release bilat hands Social History Smoking Status: Never smoker Hx Alcohol Use: Yes Alcohol type: beer, wine and hard liquor alcohol intake frequency: holidays/special occasions only Hx Substance Use: No substance use type: does not use Physical Exam Vital Signs Last Vital Signs Temp 36.8 C 01/24/22 11:44 Pulse 77 01/24/22 16:00 Resp 16 01/24/22 16:00 BP 117/72 01/24/22 16:00 Pulse Ox 96 01/24/22 16:00 O2 Del Method 01/24/22 16:00 O2 Flow Rate 3 01/24/22 16:00 Testing Laboratory Results 01/24/22 12:07 01/24/22 12:07 PT 10.7 Seconds (9.0-12.0) 01/24/22 12:07 INR 1.0 (0.9-1.1) 01/24/22 12:07 APTT 24.9 Seconds (21.0-31.0) 01/24/22 12:07 Urine Color Yellow 01/24/22 13:45 Urine Appearance Clear (Clear) 01/24/22 13:45 Urine pH 6.5 (4.5-7.5) 01/24/22 13:45 Ur Specific Richards 1.014 (1.000-1.030) 01/24/22 13:45 Urine Protein Negative (Negative) 01/24/22 13:45 Urine Glucose (UA) Negative (Negative) 01/24/22 13:45 Urine Ketones Negative (Negative) 01/24/22 13:45 Urine Nitrite Negative (Negative) 01/24/22 13:45 Ur Leukocyte Esterase Negative (Negative) 01/24/22 13:45 Electrocardiogram Date: 01/24/22 DICTATED BY:Tonio Hill MD Test Reason : Blood Pressure : / mmHG Vent. Rate : 081 BPM Atrial Rate : 081 BPM P-R Int : 150 ms QRS Dur : 090 ms QT Int : 362 ms P-R-T Axes : 006 099 249 degrees QTc Int : 420 ms Sinus rhythm with Premature supraventricular complexes and with occasional Premature ventricular complexes Rightward axis Anteroseptal infarct (cited on or before 24-JAN-2022) Abnormal ECG When compared with ECG of 31-AUG-2020 15:48, No significant change Confirmed by Tonio Hill ([id number]) on 01/24/2022 2:08:47 PM Chest X-Ray Date: 01/24/22 Chest X-Ray 01/24/22 11:50 XR chest 1V not portable CLINICAL HISTORY: fall, hypoxia COMPARISON STUDY: Chest radiograph August 31, 2020. FINDINGS: Median sternotomy wires and mediastinal surgical clips are present. Right axillary surgical clips are noted. Lung volumes are normal. Lungs are clear. There is no pneumothorax or pleural effusion. Cardiac size is stable. Mediastinal contours are normal. There is no evidence for pulmonary edema. IMPRESSION: No acute cardiopulmonary findings.
--- NOTE | 2022-01-24 18:24 | Orthopedic Consultation ---
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 She is in quite a bit of pain and wants to proceed with her surgical management. This would be a cemented bipolar hip arthroplasty. The risk meant this procedure explained the patient and she understands and informed consent was obtained.We will proceed once medically optimized. (2) Multiple stable closed lateral compression fractures of pelvis: History of Present Illness Reason for Consultation: .Right hip fracture. Requesting Physician: . Attending Physician: Aris Magallon MD .Patient is a 81-year-old female with a multiple medical comorbidities in cluding a hemorrhagic stroke 2 years ago with right-sided severe hemiparesis.She sustained a fall out of her wheelchair earlier today. She was apparently transferring when she lost control of the wheelchair and fell onto her right side. Cute onset of pain. She brought the emergency room where x-rays were displaced femoral neck fracture as well as a pelvis fracture. We are consulted for evaluation. Denies any pre-existing hip pain. She does not normally ambulate but obviously does transfer quite a bit. She had no pre-existing hip pain before. She is pretty painful now. Allergies Allergy/AdvReac Type Severity Reaction Status Date / Time latex Allergy Intermediate RASH Verified 01/24/22 15:24 Home Medications Medication Instructions Recorded Confirmed Type calcium carbonate 500 mg-vitamin 1 tab PO BID 08/03/19 01/24/22 History D3 10 mcg (400 unit) tablet (Calcium 500 With D) nitroglycerin 0.4 mg sublingual 0.4 mg sublingual UD 08/12/19 01/24/22 History tablet (Nitrostat) acetaminophen 325 mg tablet 500 mg PO AMPM 10/31/19 01/24/22 History (Tylenol) amlodipine 10 mg tablet 10 mg PO QAM 10/31/19 01/24/22 History atorvastatin 40 mg tablet 40 mg PO QPM 10/31/19 01/24/22 History hydrochlorothiazide 25 mg tablet 25 mg PO QAM 10/31/19 01/24/22 History metaxalone 400 mg tablet 400 mg PO BID 10/31/19 01/24/22 History potassium chloride 20 mEq 40 meq PO BID 10/31/19 01/24/22 History tablet,extended release sertraline 25 mg tablet (Zoloft) 25 mg PO QAM 10/31/19 01/24/22 History aspirin 81 mg tablet,delayed 81 mg PO QAM 08/31/20 01/24/22 History release dorzolamide 22.3 mg-timolol 6.8 1 drp OPB QAM 08/31/20 01/24/22 History mg/mL eye drops losartan 100 mg tablet 100 mg PO QPM 08/31/20 01/24/22 History magnesium oxide 400 mg PO QAM 03/29/21 01/24/22 History famotidine 40 mg tablet 40 mg PO BID 01/24/22 01/24/22 History metoprolol succinate 50 mg 50 mg PO DAILY 01/24/22 01/24/22 History tablet,extended release 24 hr Past Med/Surg History Medical History (Updated 01/24/22 @ 18:23 by Leland Martinez MD) Carotid artery stenosis follows with Dr. Post Cerebrovascular disease Constipation, chronic Degenerative disc disease Headache frequent Hx of Clostridium difficile infection 2019> resolved HX: breast cancer right > 10 yrs ago> lumpectomy Hypercholesterolemia Hyperlipidemia Hypertension Hypertension Multiple stable closed lateral compression fractures of pelvis Osteoarthritis Spinal stenosis of lumbar region with radiculopathy Stroke 2017> mild > recovered with no effects 2019> more severe > now in wheelchair right side weakness, right eye vision effected no longer follows with neuro Surgical History History of colonoscopy History of dilatation and curettage x2 History of esophagogastroduodenoscopy (EGD) History of lumpectomy of right breast History of open heart surgery 30 yrs ago > PFO closure History of tooth extraction S/P tonsillectomy S/P trigger finger release bilat hands Family History Mother , age 72 with heart and lung issues Heart disease Father , age 77 with stroke Stroke Other A-fib Social History Smoking Status: Never smoker Second Hand Exposure: Yes (as kid dad smoked and 1st ); Hx Alcohol Use: No Hx Substance Use: No Preferred Language: Yakut Communication Ability: Effective Frame Table Operator Required: No Beliefs That Will Affect Care: None Current Living Situation: Alone current occupational status: retired 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 Physical Exam .Physical examination reveals a pleasant frail elderly female. She is lying in bed and being fed by 8-year-old relative. Examination of the right hip and leg reveals leg to be slightly shortened. She has no significant motor function. She does have pain with attempted hip motion. Results & Data Results & Data Laboratory Results . Diagnostic Findings .X-rays of the pelvis and right hip and femur reveal displaced femoral neck fracture. No underlying pre-existing arthritis. She does have what looks to be acute superior and inferior pubic rami fractures on the right side. PG Care Time/CCT Total # of Minutes Spent Total Time Spent with Patient: Total time spent is greater than 50% in coordination of care (as documented) at patient's floor/unit and/or counseling patient: Coding Level of Care Code 57791 Inpt Consult Level 5 Diagnoses Closed right hip fracture S72.001A Multiple stable closed lateral compression fractures of pelvis S32.82XA
[2022-01-24] MEDS: ACETAMINOPHEN 325 MG TAB PO SCH (20:50)
[2022-01-24] MEDS: DORZOLAMIDE/TIMOLOL 22.3/6.8MG/ML 10 ML BTL OPB SCH (20:53)
[2022-01-24] MEDS ORDERED: LOSARTAN POTASSIUM 50 MG TAB PO SCH (21:00)
[2022-01-24] MEDS ORDERED: ATORVASTATIN 40 MG TAB PO SCH (21:00)
[2022-01-24] MEDS ORDERED: METOPROLOL SUCC 25MG EXT REL TAB PO SCH (21:00)
[2022-01-25] MEDS ORDERED: ceFAZolin 2000MG 2,000 MG/15 ML SYR IV SCH (06:00)
--- NOTE | 2022-01-25 07:01 | History & Physical Bridge Note ---
Date of Service January 25, 2022 History & Physical Bridge Note I have examined the patient, reviewed the History & Physical and in the interval since the performance of the History & Physical I have noted the following changes of clinical significance: no changes noted
[2022-01-25] MEDS: DORZOLAMIDE/TIMOLOL 22.3/6.8MG/ML 10 ML BTL OPB SCH (07:52)
[2022-01-25] MEDS: ACETAMINOPHEN 325 MG TAB PO SCH (07:52)
[2022-01-25] MEDS ORDERED: MAGNESIUM OXIDE 400 MG TAB PO SCH (09:00)
[2022-01-25] MEDS ORDERED: amLODIPine BESYLATE 5 MG TAB PO SCH (09:00)
[2022-01-25] MEDS ORDERED: SERTRALINE HCL 50 MG TABLET PO SCH (09:00)
[2022-01-25 09:31] LABS: Hematocrit (blood only) 38.8 % (34.1-44.9); Hemoglobin 12.5 g/dl (12.0-16.0); Mean Corpuscular Hemoglobin 32.5 pg (25.0-34.0); Mean Corpuscular Hgb Conc 32.2 g/dL (32.0-36.0); Mean Corpuscular Volume 100.8 fL (80.0-100.0); Mean Platelet Volume 10.3 fL (9.4-12.3); Platelet Count 148 K/uL (130-400); RDW Coefficient of Variation 13.6 % (11.5-14.5); RDW Standard Deviation 50.1 fL (36.4-46.3); Red Blood Count 3.85 M/uL (3.93-5.22); White Blood Count 8.95 K/ul (4.8-10.8)
[2022-01-25] MEDS ORDERED: PROPOFOL IV EMULSION 10 MG/ML 20 ML VIAL IV ONE ×2 (09:38→12:32)
[2022-01-25] MEDS ORDERED: MIDAZOLAM HCL 1 MG/ML 2ML VIAL ONE (09:39)
[2022-01-25 10:06] LABS: BUN Creatinine Ratio 31.8 (10-20); Creatinine Clr Calc Pharmacy 53.5 ml/min; Est GFR (African American) 72.4 ml/min; Est GFR (Non-African American) 62.5 ml/min; Potassium 4.7 mmol/L (3.5-5.1)
[2022-01-25] MEDS ORDERED: fentaNYL citrate 100 MCG/2 ML VIAL IV PRN (10:12)
[2022-01-25] MEDS ORDERED: ePHEDrine sulfate 50 MG/ML AMP IV PRN (10:12)
[2022-01-25] MEDS ORDERED: ONDANSETRON INJ 2 MG/ML 2 ML VIAL IV PRN (10:12)
[2022-01-25] MEDS ORDERED: ATROPINE SULFATE 0.1 MG/ML 10ML SYR IV PRN (10:12)
[2022-01-25] MEDS ORDERED: BUPIVACAINE 0.5 % 5 MG/1 ML PF 10ML VIAL ONE (10:15)
[2022-01-25] MEDS ORDERED: fentaNYL citrate 100 MCG/2 ML VIAL ONE (10:22)
[2022-01-25] MEDS ORDERED: EPINEPHrine INJ 1 MG/ML AMP ONE (11:13)
[2022-01-25] MEDS ORDERED: BUPIVACAINE 0.5 % 5 MG/1 ML MPF 30ML VIAL ONE ×2 (11:13→12:00)
[2022-01-25] MEDS ORDERED: ePHEDrine sulfate 50 MG/ML SYR ONE (12:03)
[2022-01-25] MEDS ORDERED: PHENYLEPHRINE 100MCG/ML 5ML SYR ONE (12:03)
[2022-01-25] MEDS ORDERED: ePHEDrine sulfate 50 MG/ML AMP ONE (12:59)
--- NOTE | 2022-01-25 13:33 | Operative Report ---
PG Post Operative Report Pre & Post Diagnosis Operation Date: 01/25/22 09:00 Pre-Op Diagnosis: Displaced Right Hip Femoral Neck Fracture Post-Op Diagnosis: Displaced Right Hip Femoral Neck Fracture I identified the patient and participated in the time-out.: Yes Procedure Operation Date: 01/25/22 09:00 Actual Procedures p Right Hip Bipolar Prosthesis--Cemented(Right) - Leland Martinez MD Surgeon Leland Martinez MD Stylist Apprentice Tripp Nickerson PA-C Estimated Blood Loss 200 Findings Consistent with Post-Op Diagnosis Fluids 1000 cc Specimens Right femoral head sent for pathology Anesthesia Type Spinal MAC Complications none Disposition Accompanied Patient To Recovery: No Indications The patient is a 81-year-old female who is about 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 She fell out of her wheelchair while trying to transfer yesterday. She had cute onset of pain. No pre-existing pain. She is a nonambulator for the most part. She had brought the emergency room where x- rays revealed a displaced femoral neck fracture along with pain with pelvis compression fractures. Treatment options were explained. The patient was pretty miserable in pain and elected proceed with surgical management in hopes of improving her pain. Description of Procedure Operative implants consist of: 1 Emmanuel LD/fracture size 11 cemented femoral stem. 2. 10 mm distal centralizer. 3. Small cement restrictor. 4. +3.5/28 mm chrome cobalt head with a 47 mm bipolar shell and liner. The patient was taken the operating, identified, placed on the operating table supine position protectors were properly padded. IV antibiotics tried by anesthesia team. A spinal anesthetic and been implemented by the anesthesia team. IV antibiotics were provided. The patient then placed in the left lateral cubitus position. Axillary roll was placed. A Stulberg hip positioner was used for positioning. The right hip and leg were then scrubbed with Hibiclens and then prepped with ChloraPrep and draped in usual sterile fashion. A posterior lateral approach of the right hip was then performed through a curvilinear incision centered over the greater trochanter. Sharp dissection Through subcutaneous tissue down below the IT band gluteal fascia. The IT band gluteal fascia incised longitudinally in line with skin incision. The unde rlying greater bursa was excised. The piriformis and external rotators as well as the posterior capsule was then released from the posterior aspect hip joint as a single layer. Great care was taken throughout the procedure protect the sciatic nerve at all times. Hip was internally rotated A femoral neck osteotomy cut was made about a centimeter above the lesser trochanter. Femoral head was removed and sent for pathology. The femur was retracted anteriorly. Attention drawn the acetabulum. The femoral head was sized to a 5 size 47. The acetabular was trialed and we elected to place a 47 bipolar shell and liner. Attention drawn back to the femur. The proximal femur was entered with a BrightWhistle cutter followed by canal finder. I then used a lateralizing reamer. I broached begin a size 10. I could not even get the 11 broach down. Therefore we elected place an 11 implant. I did open the 11 implant and made sure it fit before placing it. A small cement restrictor was placed down the canal but it was very tight and I could not withdraw the insertion device. Therefore I remove the old hold restrictor but several of the tongues of the restriction were still in the canal. I did trial implant again and made sure we could fit it in without any difficulty. We elected to just leave the portions of the cement restrictor in the canal. A double batch of Palacos G cement was mixed. It was injected in the canal. A size 11 LD/fracture femoral stem was then placed with a 10 centralizer. It appeared to be a fairly tight distal fit. All extraneous cement was removed. Once the cement hardened final check was placed and we elected to place a +3.5 head. A +3.5/28 mm metal head with a 47 bipolar shell and liner was placed. Hip was located once again found to be stable. Attention drawn toward closing. Of the posterior capsule was then closed with #2 Tycron suture in [id number] fashion. The IT band gluteal fascia were then closed in 1 PDS suture running fashion for subcutaneous tissues then closed 2 layers the deep layer #1 Vicryl suture subcutaneous tissue with 2 Dexon suture in buried interrupted fashion. Skin was closed skin remy. Leg was then cleaned and dried a sterile dressing was Xeroform, 4 fours, sterile ABD pad, foam tape was applied. The patient then transferred to the recovery room in stable condition. The patient tolerated procedure well no complications. Tripp Nickerson, my physician automobile mechanic assistant, was present for the entire procedure. His assistance was required for proper patient positioning, prepping and draping, surgical exposure, retraction, perform the technical details the operation, placing the implants, closure of the wound, placement of sterile bandage. I attest to the content of the Intraoperative Record and any orders documented therein. Any exceptions are noted below.
--- NOTE | 2022-01-25 14:31 | Hospitalist Progress Note ---
Date of Service January 25, 2022 Assessment & Plan (1) Acute respiratory failure with hypoxia: Plan: Seen in PACU after procedure with acute hypoxemia and confusion. Required CPAP, but then had aspiration event and SpO2 fell to 50-60% range. Re-intubated by anesthesia staff. Moved to ICU. Bedside u/s showed dilated RA and RV. - Ddx includes PE vs. fat embolism vs. aspiration vs. paralyzed diaphgram from spinal anesthesia. - Plan to prone patient per ICU attending - Further work-up pending patient stability. (2) Closed right hip fracture: Plan: Due to mechanical fall without concern for underlying issue. Acute Fracture of Right superior and inferior pubic rami. - S/p Right Hip Bipolar Prosthesis--Cemented on 01/[address] Martinez. - Acetaminophen standing - Pain control PRN - Post-operative care per orthopedic team. (3) Acute intra-cranial hemorrhage: Plan: Admitted to [facility]GY service from 08/03/2019 to 08/07/2019 for an intracranial hemorrhage that was treated conservatively with BP control. - Hold ASA pending surgery - Continue statin (4) Hypertension: Plan: On fairly substantial BP regimen which she confirmed to me in the ER. - Continue home amlodipine, losartan, & metoprolol - Hold home HCTZ pending surgery (5) Hypercholesterolemia: Plan: - Continue statin as above (6) DVT prophylaxis: Plan: SCDs - Hold heparin until after orthopedic evaluation and possible surgery Admission and Anticipated Discharge Date Admission Date: January 24, 2022 Subjective Seen before surgery. Very comfortable. Reports no fevers/chills, chest pain, shortness of breath, abdominal pain, nausea, or vomiting. Physical Exam Constitutional: well developed and well nourished Eyes: EOM intact bilaterally; no conjunctival abnormality ENMT: external ear and nose normal, oropharynx normal Neck: trachea midline, no thyromegaly normal visual inspection Respiratory: normal respiratory effort, lungs clear to auscultation no respiratory distress Cardiovascular: RRR, no murmur, no edema Gastrointestinal (Abdomen): Inspection/Auscultation: abdomen normal to inspection; abdomen not distended Musculoskeletal: Hip: + hip abnormal to inpsection (Right hip flexed and painful) Skin: no rashes, warm and dry Neurologic: moves all extremities and awake Psychiatric: Orientation: alert, oriented to person and cooperative Results & Data Results & Data ([facility]) Vital Signs (Past 12 Hours) Vital Signs Temp Pulse Pulse Resp BP Pulse Ox O2 Del Method 01/25/22 14:00 99 H 18 114/57 L 85 L Non-rebreather 01/25/22 13:50 105 H 18 102/71 93 Non-rebreather 01/25/22 13:40 91 H 18 117/69 92 Non-rebreather 01/25/22 13:30 83 19 118/77 84 L Non-rebreather 01/25/22 13:22 36.4 C L 77 14 62/46 L 84 L Non-rebreather 01/25/22 09:40 36.7 C 74 22 119/64 93 Room Air 01/25/22 08:00 Nasal Cannula 01/25/22 08:15 37.0 C 77 16 120/71 94 Nasal Cannula O2 Flow Rate 01/25/22 14:00 15 01/25/22 13:50 15 01/25/22 13:40 15 01/25/22 13:30 15 01/25/22 13:22 15 01/25/22 09:40 01/25/22 08:00 2 01/25/22 08:15 2 PG Care Time/CCT Total # of Minutes Spent Total Time Spent with Patient: Total time spent is greater than 50% in coordination of care (as documented) at patient's floor/unit and/or counseling patient: Coding Level of Care Code 60829 Subseq Hosp Care Lvl 3 Diagnoses Acute respiratory failure with hypoxia J96.01 Closed right hip fracture S72.001A Acute intra-cranial hemorrhage I62.9 Hypertension I10 Hypercholesterolemia E78.00 DVT prophylaxis Z29.9
--- NOTE | 2022-01-25 15:15 | XRay Report ---
XR chest 1V portable HISTORY: hypoxia COMPARISON: Chest 01/24/2022. FINDINGS: No pneumothorax. No pleural effusions. The cardiac silhouette remains mildly enlarged. Ther e is mild central pulmonary vascular congestion without overt edema. No new focal lung consolidations . Poststernotomy changes. Surgical clips within the right axilla. IMPRESSION: Cardiomegaly with mild central pulmonary vascular congestion without overt edema. ACT 112: Negative or not required by law. Electronically signed by: Darryl Stallings M.D. 01/25/2022 3:14 PM
--- NOTE | 2022-01-25 15:26 | XRay Report ---
XR hip RT min 2V HISTORY: 81 years-old Female Post-Operative implant position right hip total joint arthroplasty COMPARISON: Pelvis and hip radiographs 01/24/2022 TECHNIQUE: 2 views of the right hip FINDINGS: Right hip total joint arthroplasty demonstrates satisfactory alignment. No acute fracture or dislocat ion. Lateral skin remy are noted along with expected postoperative soft tissue swelling with deep tissue air. Vascular calcifications. Partially imaged right pubic rami fractures. IMPRESSION: Satisfactory alignment of the total joint arthroplasty. ACT 112: Negative or not required by law. The above report was generated using voice recognition software. It may contain grammatical, syntax o r spelling errors. Electronically signed by: Prabhakar Ruiz M.D. 01/25/2022 3:25 PM
[2022-01-25 15:54] LABS: Hematocrit (blood only) 39.3 % (34.1-44.9); Hemoglobin 12.5 g/dl (12.0-16.0); Mean Corpuscular Hemoglobin 32.4 pg (25.0-34.0); Mean Corpuscular Hgb Conc 31.8 g/dL (32.0-36.0); Mean Corpuscular Volume 101.8 fL (80.0-100.0); Mean Platelet Volume 10.2 fL (9.4-12.3); Platelet Count 158 K/uL (130-400); RDW Coefficient of Variation 13.7 % (11.5-14.5); RDW Standard Deviation 51.4 fL (36.4-46.3); Red Blood Count 3.86 M/uL (3.93-5.22)
--- NOTE | 2022-01-25 15:59 | Anesthesiology Progress Note ---
Date of Service January 25, 2022 Anesthesia Post Procedure Vital Signs Vital Signs: Temp Pulse Pulse Pulse Resp BP Pulse Ox 01/25/22 14:35 97 H 18 94 01/25/22 15:20 98 H 18 113/72 94 01/25/22 15:10 94 H 18 97/70 L 94 01/25/22 15:00 94 H 20 112/55 L 94 01/25/22 14:50 96 H 16 116/70 93 01/25/22 14:40 95 H 16 112/69 95 01/25/22 14:30 102 H 16 129/68 92 01/25/22 14:20 88 22 109/62 93 01/25/22 14:10 93 H 19 96/75 L 87 L 01/25/22 14:00 99 H 18 114/57 L 85 L 01/25/22 13:50 105 H 18 102/71 93 01/25/22 13:40 91 H 18 117/69 92 01/25/22 13:30 83 19 118/77 84 L 01/25/22 13:22 97.5 F L 77 14 62/46 L 84 L 01/25/22 09:40 98.1 F 74 22 119/64 93 01/25/22 08:00 01/25/22 08:15 98.6 F 77 16 120/71 94 01/24/22 23:00 97.3 F L 85 18 117/65 90 01/24/22 19:30 01/24/22 20:46 98.6 F 92 H 16 117/73 91 01/24/22 17:45 91 01/24/22 17:39 01/24/22 17:03 99.1 F 92 H 18 120/75 01/24/22 16:00 77 16 117/72 96 O2 Del Method O2 Flow Rate FiO2 01/25/22 14:35 50 01/25/22 15:20 CPAP 50 01/25/22 15:10 CPAP 50 01/25/22 15:00 CPAP 50 01/25/22 14:50 CPAP 50 01/25/22 14:40 CPAP 80 01/25/22 14:30 Non-rebreather 15 01/25/22 14:20 Non-rebreather 15 01/25/22 14:10 Non-rebreather 15 01/25/22 14:00 Non-rebreather 15 01/25/22 13:50 Non-rebreather 15 01/25/22 13:40 Non-rebreather 15 01/25/22 13:30 Non-rebreather 15 01/25/22 13:22 Non-rebreather 15 01/25/22 09:40 Room Air 01/25/22 08:00 Nasal Cannula 2 01/25/22 08:15 Nasal Cannula 2 01/24/22 23:00 Room Air 01/24/22 19:30 Nasal Cannula 2 01/24/22 20:46 Nasal Cannula 2 01/24/22 17:45 Nasal Cannula 2 01/24/22 17:39 Nasal Cannula 2 01/24/22 17:03 01/24/22 16:00 Nasal Cannula 3 Pain Intensity Right Hip: Pain Intensity: 3 Transfer of Care Handoff Completed per policy Notes Mental Status: see notes below Patient Amnestic to Procedure: Yes Nausea / Vomiting: adequately controlled Pain: adequately controlled Airway Patency, RR, SpO2: stable & adequate BP & HR: stable & adequate Hydration State: stable & adequate Neuraxial Anesthesia: was administered and sensory block is resolving Anesthetic Complications: no major complications apparent Notes: Please see attached communication report for detailed summary.
--- NOTE | 2022-01-25 16:04 | Communication Note ---
Date of Service: January 25, 2022 The patient was s/p right bipolar hip. While in PACU, the patient was noted to be arousable without much purposeful movements. The patient also did not show any signs of respiratory distress, but her O2 saturations were in the mid 80s despite being on a non-rebreather. At this time, I updated Dr. Martinez and Dr. Magallon of the patient's status. The patient was placed on a CPAP due to the patient's low O2 saturations. An EKG and CXR were ordered. The patient's saturations did improve into the 90s, but the patient's mental status did not improve. While the patient was on her CPAP, the patient had an episode of emesis. It was decided that the patient would need to be intubated to protect her airway. The FORGEMAN HELPER intubated the patient's trachea with 1 attempt using a glidescope 3. The oropharynx was clear. ETCO2 was confirmed with a CO2 monitor, and there were B/L breath sounds with auscultation. The endotracheal tube was secured by respiratory. The patient's O2 saturations remained in the 70s/80s despite endotracheal intubation. Report was given to Dr. Magallon and Dr. Couch.
--- NOTE | 2022-01-25 16:12 | XRay Report ---
XR chest 1V portable HISTORY: 81 years-old Female post intubation xray acute respiratory failure COMPARISON: Chest radiograph of same day at 2:55 PM TECHNIQUE: Supine AP view of the chest FINDINGS: Status post placement of an endotracheal tube terminating 4.3 cm superior to the masoud. Atherosclero sis of the aorta. Cardiomediastinal and hilar silhouettes are unchanged. Prior median sternotomy. Mil d right hemidiaphragmatic elevation. Pulmonary vascular congestion without pneumothorax, pleural effu carloz or lobar airspace consolidation. Degenerative changes of the shoulders and spine. Surgical clips of the right axilla. IMPRESSION: 1. Status post placement of an endotracheal tube terminating 4.3 cm superior to the masoud. 2. Cardiomegaly with pulmonary vascular congestion. ACT 112: Negative or not required by law. The above report was generated using voice recognition software. It may contain grammatical, syntax o r spelling errors. Electronically signed by: Prabhakar Ruiz M.D. 01/25/2022 4:10 PM
[2022-01-25] MEDS ORDERED: RAPID SEQUENCE INDUCTION BAG ONE (16:17)
[2022-01-25] MEDS ORDERED: VECURONIUM BROMIDE 10 MG VIAL IV ONE (16:18)
[2022-01-25 16:22] LABS: Albumin Globulin Ratio 1.5 (0.9-2); Albumin Level 3.4 gm/dl (3.4-5.0); BUN Creatinine Ratio 29.9 (10-20); Bilirubin,Total 0.7 mg/dl (0.2-1.0); Calcium 8.8 mg/dl (8.5-10.1); Est GFR (African American) 57.2 ml/min; Est GFR (Non-African American) 49.3 ml/min; Globulin 2.3 gm/dl (2.5-4.0); Potassium 4.5 mmol/L (3.5-5.1); Total Protein 5.7 gm/dl (6.0-8.3)
[2022-01-25] MEDS ORDERED: FAT EMULSION IV 20% 500 ML IV STA (16:27)
--- NOTE | 2022-01-25 16:29 | Electrocardiogram Report ---
Test Reason : Blood Pressure : / mmHG Vent. Rate : 098 BPM Atrial Rate : 098 BPM P-R Int : 142 ms QRS Dur : 108 ms QT Int : 366 ms P-R-T Axes : 000 105 266 degrees QTc Int : 467 ms Sinus rhythm with Premature atrial complexes Rightward axis Marked ST abnormality, possible lateral subendocardial injury Abnormal ECG When compared with ECG of 24-JAN-2022 12:44, Premature ventricular complexes are no longer Present Criteria for Anteroseptal infarct are no longer Present Confirmed by Tonio Hill ([id number]) on 01/25/2022 4:28:57 PM Referred By: REFERRED SELF Confirmed By:Tonio Hill
[2022-01-25 16:30] LABS: Troponin I High Sensitivity 4552.5 pg/ml (0-14)
[2022-01-25] MEDS ORDERED: FAT EMULSIONS 20% IV SCH (16:30)
[2022-01-25] MEDS ORDERED: NOREPINEPHRINE/D5W 4 MG/250 ML IV ONE (16:35)
[2022-01-25] MEDS ORDERED: AMIODARONE 150MG / 100ML D5W IV ONE (16:41)
[2022-01-25] MEDS ORDERED: AMIODARONE 360MG / 200ML D5W IV ONE (16:52)
[2022-01-25 17:20] LABS: iSTAT Allen Test Pass; iSTAT Art Bld Gas pCO2 Correct 45 mmHg (35-46); iSTAT Arterial Blood Gas HCO3 19 meg/L (19-24); iSTAT Arterial Blood Gas pCO2 45 mmHg (35-46); iSTAT Arterial Blood Gas pH 7.23 (7.35-7.45); iSTAT Arterial Blood Gas pO2 48 mmHg (80-95); iSTAT Arterial Blood Gas pO2 C 48; iSTAT Carbon Dioxide 20 mmol/L (24-31); iSTAT FiO2 100 %; iSTAT Hematocrit 36 % (37-47); iSTAT Hemoglobin 12.2 g/dl (12.0-16.0); iSTAT Potassium 4.5 mmol/L (3.3-5.0); iSTAT Site L Radial; iSTAT Sodium 135 mmol/L (135-144)
--- NOTE | 2022-01-25 17:26 | Procedure Note ---
Procedure Note Date of Service January 25, 2022 Note Right femoral arterial line: Indication: Cardiac arrest No consent was obtained as the patient was actively in cardiac arrest A time-out was completed verifying correct patient, procedure, site, positioning, and implants(s) or special equipment if applicable. Patients right groin was cleansed and draped in the typical sterile fashion using Chloraprep. The Femoral Vein and Femoral Artery were identified using ultrasound. The femo ral artery was cannulated under direct ultrasound guidance using an introducer needle on a syringe. Good blood return was maintained prior to removal of syringe from introducer needle. Using Seldinger Technique, a guide wire was advanced through the introducer needle without resistance. Catheter was inserted over the wire and the wire was removed. The line was sutured in place. Arterial waveform was identified. Procedural Ultrasound Guidance utilized. Coding CPT Codes Tubes, Drains, and Vasc Access - Tubes, Drains, and Vasc Access: [id number] Insertion Catheter, Artery ([id number]) Tubes, Drains, and Vasc Access - Tubes, Drains, and Vasc Access: [id number] Ultrasound Guidance For Vascular ([id number]) [facility] [place] Codes (Charges) Tubes, Drains, and Vasc Access Procedure 1: Tubes, Drains, and Vasc Access: [id number] Insertion Catheter, Artery Procedure 2: Tubes, Drains, and Vasc Access: [id number] Ultrasound Guidance For Vascular
--- NOTE | 2022-01-25 17:31 | Procedure Note ---
Procedure Note Date of Service January 25, 2022 Note 81-year-old female with a past medical history of hemorrhagic stroke with wheelchair-bound presented to the hospital yesterday due to fall and right hip fracture. She underwent surgery this afternoon. Post surgery, she developed respiratory distress and was placed on CPAP in the PACU. She reportedly had an aspiration event and was ultimately intubated by the anesthesia team. I was called by the hospitalist to evaluate the patient. At the time of my evaluation, the patient was intubated. She received a dose of etomidate and rocuronium by the anesthesia team. She had [address] She was saturating 70% on 100% FiO2 and a PEEP of 10 on the ventilator. I performed a bedside echo which revealed dilated right ventricle and right atrium. The IVC appears dilated as well. Left ventricular function appeared normal. No pericardial effusion was identified. I then manually bagged the patient using the Ambu bag. I did not encounter any significant resistance when bagging her. She persistently had saturations in the low 70s and occasionally in the upper 60s. We then elected to move her to the ICU. She did have saturations that improved to 75%. She was transferred over to the ICU bed. Several minutes later, she developed bradycardia with heart rates in the low 40s and received 1 mg of atropine. Her blood pressure was beginning to drop at this point. Her heart rate subsequently improved to the 150s and she was in ventricular tachycardia. She had a pulse throughout this timeframe. We gave her 150 mg of amiodarone with improvement of her heart rate. She continued to have severe hypoxemia. We placed her on APRV with minimal improvement in her saturations. I then see her back on AC/VC with a PEEP of 18. Saturations continued to be in the 60s and 70s. At this point, the blood pressure was stable for several minutes. We attempted placing a right femoral central line, but the wire kinked and wire was removed. Several minutes later, the patient continued to have increasing hypoxemia. Worsening blood pressures. She suddenly went into PEA and chest compressions were immediately started. The pads were placed. The patient received several doses of epinephrine throughout the cardiac arrest. I placed a femoral arterial line and we were able to get an adequate waveform during chest compressions. Her waveform flatlined when chest compressions were discontinued. The hospitalist consulted with the patient's family and ultimately the family desire to stop resuscitative measures. This was discussed with the care team and everybody was in agreement to stop resuscitative efforts. The patient was declared at 4:57 PM. I suspect the patient from coronary ischemia and possible fat embolism/pulmonary embolism. Unfortunately, we were not able to use systemic thrombolysis given the patient's hip surgery and history of subarachnoid hemorrhage. Coding CPT Codes Resuscitation - Resuscitation: 71039 Heart/lung resuscitation CPR ([id number]) [facility]NP Procedure Codes (Charges) Resuscitation Resuscitation: 69637 Heart/lung resuscitation CPR
--- NOTE | 2022-01-25 17:44 | Procedure Note ---
Procedure Note Date of Service January 25, 2022 Note PREOPERATIVE DIAGNOSIS: Aspiration pneumonitis POSTOPERATIVE DIAGNOSIS: Hypoxemic respiratory failure of unclear etiology PROCEDURE PERFORMED: Flexible fiberoptic bronchoscopy COMPLICATIONS: None. INDICATION: Acute hypoxemic respiratory failure PROCEDURE: Procedure was done emergently given the concern of possible aspiration pneumonitis. Patient was apparently on CPAP in the PACU and there was a witnessed aspiration event. Due to the patient's profound hypoxemia without any clear etiology, we elected to perform a bronchoscopy urgently. Bronchoscope was inserted via the adapter. The patient was on 100% oxygen via ventilator. The bilateral tracheobronchial tree was inspected. The masoud was sharp. The trachea appeared normal. No obvious lesions were noted. No significant secretions or aspirated contents were noted. The patient maintained saturations in the mid 70s. Procedure for similar to her saturations prior to the procedure. The procedure was ultimately terminated and the bronchoscope was removed. Coding CPT Codes Pulmonary/Thoracic - Pulmonary and Thoracic: 77073 Bronchoscopy, clear airways ([id number]) [facility] [place] Codes (Charges) Pulmonary/Thoracic Procedure 1: Pulmonary and Thoracic: 92541 Bronchoscopy, clear airways
--- NOTE | 2022-01-25 18:08 | Discharge Summary ---
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 The patient reports she was in her normal state of health over the past few days and today. She is wheelchair-bound due to her hemorrhagic stroke in 2019, and she was transitioning into her wheelchair today when the wheelchair slipped out from under her and she fell on her right side. She reports she believed the wheelchair was locked, but that it apparently was not as it rolled out from under her. She reports that she did not have any prodrome symptoms such as lightheadedness, dizziness, chest pain, palpitations, shortness of breath, or other. She does not believe she struck her head or had any loss of consciousness. Principal Diagnosis Right hip fracture Hypoxic respiratory failure Discharge Exam No heart beat, no respirations, pupils fixed Discharge Data Allergies Allergy/AdvReac Type Severity Reaction Status Date / Time latex Allergy Intermediate RASH Verified 01/24/22 15:24 Consultations 01/24/22 13:58 ED Decision to Admit Stat 01/24/22 16:56 Consult Orthopedic Surgery Routine Procedures Performed Operation Date: 01/25/22 09:00 Actual Procedures p Right Hip Bipolar Prosthesis--Cemented(Right) - Leland Martinez MD Ordered Studies 01/24/22 11:48 CT lumbar spine wo con Stat 01/25/22 15:[address] [CT head/brain wo con] Stat Hospital Course (1) Acute respiratory failure with hypoxia: I was called by Mohsen Carranza, the patient's anesthesiology during the case at approx. 3pm. After extubation, the patient had SpO2 in the 70% range which partially responded to high-flow NC, then responded better to CPAP with SpO2 in 92-93%. Patient was very lethargic and would only open her eyes briefly before closing them. She did move the left extremity for Dr. Carranza. I immediately went to assess her. On my exam, she would open eyes briefly, then close them. Did not follow commands (no wiggling of fingers and not moving left leg). Unable to answer questions. SpO2 stable at 92-93%. CXR showed elevated right hemidiaphragm, but otherwise fairly clear. PACU team had concern for CVA (which I agreed with), but I was also concerned about her new hypoxemia as she had been on 2L NC prior to her surgery and had been breathing comfortably. I did notice that her monitor showed ST depressions which were more significant than her EKG from yesterday. I ordered a stat EKG, stat troponin, lactate, CMP, CBC. Plan was to monitor her for 30-45 more minutes and then determine whether she should go to the ICU or PCU. At approx. 3:40pm, I was overhead paged. The patient had started to vomit with the CPAP on and SpO2 had fallen to the 70% range. I ran to the PACU where I found the PACU team preparing to re-intubate her. SpO2 at that time was in the 60% range and transiently fell into the 50% range. Intubation proceeded quickly and without issue; however, even after intubation, the patient's SpO2 only nelson to approx. 75% - 82% depending on the oximetry probe used. I spoke with Dr. Couch who came immediately from the ICU. The patient was transferred to the ICU with bag masking done and SpO2 ~80%. In the ICU, bronchoscopy was performed, and per ICU, her airways were clear. However, bedside echo indicated dilated RA and RV. Concern for possible PE vs. fat embolism. ACS also a concern with the elevated troponin and new ST depressions. Patient became bradycardic and coded at 4:45pm. ICU physician in attendance and ran code. Patient's family elected to stop code at 16:57. Bedside ultrasound showed no functional cardiac function. Time of was 16:57. (2) Closed right hip fracture: Due to mechanical fall without concern for underlying issue. Acute Fracture of Right superior and inferior pubic rami. - S/p Right Hip Bipolar Prosthesis--Cemented on 01/[address] Martinez. - Acetaminophen standing - Pain control PRN - Post-operative care per orthopedic team. (3) Acute intra-cranial hemorrhage: Admitted to [facility]GY service from 08/03/2019 to 08/07/2019 for an intracranial hemorrhage that was treated conservatively with BP control. - Hold ASA pending surgery - Continue statin (4) Hypertension: On fairly substantial BP regimen which she confirmed to me in the ER. - Continue home amlodipine, losartan, & metoprolol - Hold home HCTZ pending surgery (5) Hypercholesterolemia: - Continue statin as above (6) DVT prophylaxis: SCDs - Hold heparin until after orthopedic evaluation and possible surgery Total Time Total Time Spent Total Time Spent (In Minutes): 90 Discharge Plan Discharge Items Reason For Visit: FALL AND R HIP FX Condition on Discharge: Fair Follow-up/Referrals: Manolo Toussaint DO [Primary Care Provider] - Medications and DC Order Prescriptions: No Action amlodipine 10 mg tablet 10 mg PO QAM Rx Instructions: Sates she thinks she breaks this one in half atorvastatin 40 mg tablet 40 mg PO QPM metaxalone 400 mg tablet 400 mg PO BID potassium chloride 20 mEq tablet extended release 40 meq PO BID sertraline [Zoloft] 25 mg tablet 25 mg PO QAM calcium carbonate-vitamin D3 [Calcium 500 With D] 500 mg(1,250mg) -400 unit Tablet 1 tab PO BID hydrochlorothiazide 25 mg tablet 25 mg PO QAM nitroglycerin [Nitrostat] 0.4 mg Tablet, Sublingual 0.4 mg sublingual UD acetaminophen [Tylenol] 325 mg tablet 500 mg PO AMPM magnesium oxide 400 mg magnesium Tablet 400 mg PO QAM aspirin 81 mg Tablet,Delayed Release (Dr/Ec) 81 mg PO QAM losartan 100 mg tablet 100 mg PO QPM dorzolamide-timolol 22.3-6.8 mg/mL drops 1 drp OPB QAM metoprolol succinate 50 mg tablet extended release 24 hr 50 mg PO DAILY famotidine 40 mg tablet 40 mg PO BID Admission Data Admit Date/Time: 01/24/22 14:24 Attending Provider: Aris Magallon Admit Provider: Aris Magallon Primary Care Provider: Manolo Toussaint Other Providers: Aris Magallon ; Leland Martinez Coding Level of Care Code D/C DAY MANAGEMENT >30 MINS Diagnoses Acute respiratory failure with hypoxia J96.01 Closed right hip fracture S72.001A Acute intra-cranial hemorrhage I62.9 Hypertension I10 Hypercholesterolemia E78.00 DVT prophylaxis Z29.9
[2022-01-25] MEDS ORDERED: NITROGLYCERIN SL 0.4 MG/TAB TAB SL SCH (18:15)
[2022-01-25] MEDS ORDERED: SODIUM BICARB 8.4% INJ 50 MEQ/50 ML SYR IV ONE (20:59)
[2022-01-25] MEDS ORDERED: ATROPINE SULFATE 0.1 MG/ML 10ML SYR IV ONE ×2 (20:59)
[2022-01-25] MEDS ORDERED: SODIUM CHLORIDE 0.9% 10ML FLUSH IV ONE (20:59)
[2022-01-25] MEDS ORDERED: MIDAZOLAM HCL 5 MG/ML VIAL IV ONE (20:59)
[2022-01-25] MEDS ORDERED: FAMOTIDINE 40 MG TABLET PO SCH (21:00)
[2022-01-25] MEDS ORDERED: CALCIUM 600MG + VIT D 400 IU TAB PO SCH (21:00)
[2022-01-25] MEDS ORDERED: POTASSIUM CHLORIDE CRTAB 20 MEQ TABCR PO SCH (21:00)
[2022-01-25] MEDS ORDERED: ASPIRIN 81 MG ECTAB PO SCH (21:00)
[2022-01-26] MEDS ORDERED: hydroCHLOROthiazide 25 MG TAB PO SCH (09:00)
[2022-01-26] MEDS ORDERED: METOPROLOL SUCC 50MG EXT REL TAB PO SCH (09:00)
[2022-01-27] MEDS ORDERED: POLYETHYLENE (MIRALAX) 17 GM PACK PO SCH (06:00)
== END 2022-01-25 21:00 | disposition expired | DRG 956 ==
LOC: ED 11:40 → 3N 14:24 → 1E 01-25 16:32